=== PATIENT | male | born 1950 | race Caucasian/White ===

== ENCOUNTER 2017-09-11 19:08 | Inpatient (IN) | payer MEDICARE ==
[2017-09-11] MEDS ORDERED: Diltiazem 125 MG/25 ML ONE (19:22)
[2017-09-11 19:39] LABS: #Eosinphils 0.1 thou/uL (0.0-0.7); #Lymphocytes 2.1 thou/uL (1.20-3.40); #Monocytes 0.6 thou/uL (0.11-0.59); #Neutrophils 3.1 thou/uL (1.40-6.50); %Basophils 0.7 % (0.0-1.0); %Eosinophils 0.9 % (0.0-10.0); %Monocytes 10.1 % (0.0-10.0); Red Blood Cell (RBC) Count 4.21 mill/uL (4.70-6.10)
[2017-09-11 19:46] LABS: PTT 37.4 SEC (22.9-36.1); Prothrombin Time 23.2 SEC (12.0-14.7)
--- NOTE | 2017-09-11 20:01 | RAD ---
PORTABLE CHEST: 09/11/17 HISTORY: Chest pain. Streaky atelectasis and/or infiltrate in the left lung base. Slight elevation of the left hemidiaphra gm. Lung meraz otherwise appear clear and well aerated. Heart size is upper normal. IMPRESSION: Evidence of atelectasis and/or infiltrate in the left lung base. POS: [facility]
[2017-09-11 20:04] LABS: Troponin I Less than 0.010 ng/mL (< 0.028)
[2017-09-11 20:18] LABS: ALT (SGPT) 14 U/L (8-55); AST (SGOT) 16 U/L (5-34); Alkaline Phosphatase 113 U/L (40-150); Anion Gap 16 mmol/L (10-20); BUN (Urea Nitrogen) 23 mg/dL (8.4-25.7); Bilirubin, Total 0.6 mg/dL (0.2-1.2); CK (CPK) 49 U/L (30-200); Calc. Creatinine Clearance 0 mL/min (70-130); Calcium 9.4 mg/dL (7.8-10.44); Carbon Dioxide 23 mmol/L (23-31); Chloride 106 mmol/L (98-107); Estimated GFR-MDRD 43; Globulin 2.9 g/dL (2.4-3.5); Lipase 56 U/L (8-78)
[2017-09-11 23:23] VITALS: BMI 34.3
[2017-09-11 23:27] LABS: Troponin I Less than 0.010 ng/mL (< 0.028)
[2017-09-11] MEDS ORDERED: Acetaminophen 325 MG TAB PO PRN (23:33)
[2017-09-11] MEDS ORDERED: Ondansetron HCl/PF 4 MG/2 ML Vial IVP PRN (23:33)
[2017-09-11] MEDS ORDERED: Ondansetron ODT 4 MG TAB SL PRN (23:33)
[2017-09-11] MEDS ORDERED: Diltiazem HCl 125 MG, Admixture Fee 1 EACH in Sodium Chloride 0.9% 100 ML SLOW IVP SCH (23:45)
[2017-09-12] MEDS ORDERED: Sodium Chloride 0.9% 1,000 ML IV SCH (00:50)
[2017-09-12] MEDS ORDERED: Guaifenesin DM 100-10/5 ML UDCUP PO PRN (00:50)
[2017-09-12] MEDS ORDERED: Acetaminophen 325 MG TAB PO PRN (00:50)
[2017-09-12] MEDS ORDERED: Senokot 8.6 MG TAB PO PRN (00:50)
[2017-09-12 01:55] LABS: Troponin I Less than 0.010 ng/mL (< 0.028)
[2017-09-12] MEDS ORDERED: Digoxin 0.5 MG/2 ML AMP SLOW IVP SCH (02:45)
--- NOTE | 2017-09-12 03:15 | HP ---
REASON FOR ADMISSION: Atrial fibrillation with RVR. HISTORY OF PRESENT ILLNESS: The patient gives history of going to his daughter' s house for supper. She was still cooking. He did not feel good. He felt like his heart was racing. He checked his pulse and the rate was more than 100 and he also had skipping of beats that he noticed. No complaints of shortness of breath or fever. The patient knew that he was back in atrial fibrillation like he was before. He has had 2 ablations before for atrial fibrillation/ flutter. He had seen Dr. Duval recently and was placed on Xarelto from last 3 weeks. He in fact took a tablet of Xarelto at 6:00 p.m. last evening. No complaints of chest pain or PND. No complaints of fever. PAST MEDICAL/SURGICAL HISTORY: 1. Prior history of atrial fibrillation/flutter with ablation done x2. He states that usual medications do not work and they had to go in for ablation before. 2. Dyslipidemia. 3. History of skin cancer with surgery for the same. 4. Hypothyroidism. 5. Hypertension. 6. Coronary artery disease with 3 stents placed in 2013 in [place]. 7. Appendectomy. CURRENT MEDICATIONS: The patient is on aspirin 81 mg p.o. daily, Benicar 40 mg p.o. daily, Coreg 6.25 mg p.o. twice daily, K-Dur 20 mEq p.o. daily, Lipitor 20 mg p.o. daily, levothyroxine 50 mcg p.o. daily, Aldactone 25 mg p.o. daily, Xarelto 20 mg daily. ALLERGIES: No known drug allergies. PERSONAL HISTORY: Quit smoking 20 years back, prior to which has smoked a pack and a half for nearly 23 years. Does not abuse alcohol or drugs. REVIEW OF SYSTEMS: The following complete review of systems was negative, unless otherwise mentioned in the HPI or below: Constitutional: Weight loss or gain, ability to conduct usual activities. Skin: Rash, itching. Eyes: Double vision, pain. ENT/Mouth: Nose bleeding, neck stiffness, pain, tenderness. Cardiovascular: Palpitations, dyspnea on exertion, orthopnea. Respiratory: Shortness of breath, wheezing, cough, hemoptysis, fever or night sweats. Gastrointestinal: Poor appetite, abdominal pain, heartburn, nausea, vomiting, constipation, or diarrhea. Genitourinary: Urgency, frequency, dysuria, nocturia. Musculoskeletal: Pain, swelling. Neurologic/Psychiatric: Anxiety, depression. Allergy/Immunologic: Skin rash, bleeding tendency. PHYSICAL EXAMINATION: GENERAL: The patient is a 67-year-old male who is currently not in any acute distress. VITAL SIGNS: Blood pressure 150/106, pulse 144 per minute on arrival, currently around 104 on Cardizem drip 7.5 mg an hour, respiratory rate 18 per minute, temperature 97.4 degrees Fahrenheit, saturating 100% on room air. NECK: Supple, no elevated JVD. HEENT: Eyes, extraocular muscles intact. Pupils reacting to light. Oral cavity, mucous membranes are moist. No exudates or congestion. CARDIOVASCULAR SYSTEM: S1, S2 heard. Irregular rhythm. RESPIRATORY SYSTEM: Air entry 1+ bilateral. No rales or rhonchi. ABDOMEN: Soft, bowel sounds heard. No tenderness, rigidity or guarding. EXTREMITIES: No peripheral edema or calf tenderness. VASCULAR SYSTEM: Peripheral pulses 1+ bilateral. No ischemic ulcerations or gangrene. CENTRAL NERVOUS SYSTEM: No gross focal deficits seen. Patient is alert, awake , oriented well. PSYCHIATRIC: The patient's mood is euthymic. No hallucinations or delusions. LABORATORY AND X-RAY FINDINGS: EKG done shows atrial fibrillation with RVR at 157 beats per minute on arrival. PT/INR 23 and 2.0, PTT 37.4, H&H 13 and 42, platelet count 196. MCV is 99, BUN 23, creatinine 1.6, serum bicarbonate 23, troponin x2 is negative. Liver enzymes are within normal limits. Albumin is 4.1, lipase is 56. Chest x-ray done shows there is questionable infiltrate in the left lung base. It is more to do with atelectasis. CLINICAL IMPRESSION AND PLAN: The patient will be admitted to telemetry for atrial fibrillation with rapid ventricular response. He is currently on Cardizem drip 7.5 mg an hour and we will continue the same along with Coreg. We will give him a dose of 0.5 mg digoxin one dose IV now. We will also continue his atorvastatin, aspirin, Synthroid, Benicar, and Aldactone on alternate days as before. We will keep him n.p.o. if patient were to go into RVR despite being on rate limiting medications. We will consult Dr. 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 We will also obtain thyroid function tests, an echo with 2D Doppler for LV function and to rule out vegetation. Please note the patient has taken Xarelto at 6:00 p.m. on the and his INR is around 2 with PTT of 37 at present. Likely, he will need a washout time prior to proceeding with any intervention. We will continue to closely monitor him on telemetry. Please note I have seen and examined patient on 09/11/2017. MICAH
[2017-09-12] MEDS ORDERED: Digoxin 0.5 MG/2 ML AMP SLOW IVP PRN (03:57)
[2017-09-12 05:31] LABS: #Eosinphils 0.1 thou/uL (0.0-0.7); #Lymphocytes 1.9 thou/uL (1.20-3.40); #Monocytes 0.5 thou/uL (0.11-0.59); #Neutrophils 2.7 thou/uL (1.40-6.50); %Basophils 0.4 % (0.0-1.0); %Lymphocytes 36.8 % (21.0-51.0); %Monocytes 10.3 % (0.0-10.0); Hematocrit 39.2 % (42.0-52.0); Red Blood Cell (RBC) Count 3.93 mill/uL (4.70-6.10); White Blood Cell (WBC) Count 5.1 thou/uL (4.8-10.8)
[2017-09-12] MEDS ORDERED: Levothyroxine Sodium 50 MCG TAB PO SCH ×2 (06:00→10:45)
[2017-09-12 06:03] LABS: Anion Gap 12 mmol/L (10-20); BUN (Urea Nitrogen) 21 mg/dL (8.4-25.7); Calc. Creatinine Clearance 75 mL/min (70-130); Calcium 9.1 mg/dL (7.8-10.44); Carbon Dioxide 21 mmol/L (23-31); Chloride 110 mmol/L (98-107); Estimated GFR-MDRD 50
[2017-09-12 06:09] LABS: Free T3 2.55 pg/mL (1.71-3.71)
[2017-09-12] MEDS ORDERED: Spironolactone 25 MG TAB PO SCH (08:00)
[2017-09-12] MEDS ORDERED: Carvedilol 6.25 MG TAB PO SCH (09:00)
[2017-09-12] MEDS: Famotidine 20 MG TAB PO SCH (09:05)
[2017-09-12] MEDS: Potassium Chloride 20 MEQ TAB PO SCH (09:05)
--- NOTE | 2017-09-12 09:12 | PDOC.PN ---
- Subjective Encounter Start Date: 09/12/17 Encounter Start Time: 09:11 Subjective: feels Ok but still paplpitations when he moves around w Increase IN HR -: no chest pain/sob/dizziness - Objective Resuscitation Status: Resuscitation Status FULL:Full Resuscitation MAR Reviewed: Yes Vital Signs & Weight: Vital Signs (12 hours) Temp Pulse Resp BP BP Pulse Ox 09/12/17 08:16 97.9 F 80 16 112/61 96 09/12/17 04:01 105 H 09/12/17 04:00 97.9 F 87 16 93/57 L 97 09/12/17 00:05 96.9 F L 105 H 16 95 09/11/17 23:34 95 09/11/17 23:15 96.9 F L 105 H 16 110/69 95 Weight Weight 225 lb 14.4 oz I&O: 09/11/17 09/12/17 09/13/17 06:59 06:59 06:59 Intake Total 300 Output Total 150 Balance 150 Result Diagrams: 09/12/17 04:51 09/12/17 04:51 Additional Labs: Laboratory Tests 09/11/17 09/11/17 09/11/17 19:29 19:29 19:29 INR 2.0 Creatinine 1.61 H Troponin I Less than 0.010 Free T4 Free T3 TSH 3rd Generation 09/11/17 09/12/17 09/12/17 22:39 01:13 04:51 INR Creatinine 1.41 H Troponin I Less than 0.010 Less than 0.010 Free T4 Free T3 TSH 3rd Generation 09/12/17 04:51 INR Creatinine Troponin I Free T4 1.11 Free T3 2.55 TSH 3rd Generation 0.2078 L Phys Exam - Physical Examination Constitutional: NAD HEENT: PERRLA, moist MMs, sclera anicteric, oral pharynx no lesions Neck: no nodes, no JVD, supple, full ROM Respiratory: no wheezing, no rales, no rhonchi, clear to auscultation bilateral Cardiovascular: no significant murmur, no rub, gallop, irregular Gastrointestinal: soft, non-tender, no distention, positive bowel sounds Musculoskeletal: no edema, pulses present Neurological: non-focal, normal sensation, moves all 4 limbs Psychiatric: normal affect, A&O x 3 Skin: no rash Dx/Plan (1) Atrial fibrillation with RVR Code(s): I48.91 - UNSPECIFIED ATRIAL FIBRILLATION Status: Acute (2) RIZWAN (acute kidney injury) Code(s): N17.9 - ACUTE KIDNEY FAILURE, UNSPECIFIED Status: Acute (3) Hypothyroid Code(s): E03.9 - HYPOTHYROIDISM, UNSPECIFIED Status: Chronic (4) HLD (hyperlipidemia) Code(s): E78.5 - HYPERLIPIDEMIA, UNSPECIFIED Status: Chronic (5) HTN (hypertension) Code(s): I10 - ESSENTIAL (PRIMARY) HYPERTENSION Status: Chronic (6) CAD (coronary artery disease) Code(s): I25.10 - ATHSCL HEART DISEASE OF [place] CORONARY ARTERY W/O ANG PCTRS Status: Chronic (7) Chronic anticoagulation Code(s): Z79.01 - RENTAL COORDINATOR (CURRENT) USE OF ANTICOAGULANTS Status: Chronic (8) H/O malignant neoplasm of skin Code(s): Z85.828 - PERSONAL HISTORY OF OTHER MALIGNANT NEOPLASM OF SKIN Status : Chronic - Plan out of bed/ambulate, DVT proph w/SCDs Discussed w Cardiology-started on PO cardiazem.DC Cardiazem drip. -: Pt already on xarelto as an OP.cont same. -: If HR controlled ,may DC home later today. -: If still RVR, will keep in house for possible CV tomorrow. -: increase ambulation.Restart diet. * .Lower dose of levothyroxine as TSH low ,specially in light of RVR w A-fib. * monitor Review of Systems - Review of Systems Constitutional: negative: Fever, Chills, Sweats, Weakness, Malaise, Other Eyes: negative: Pain, Vision Change, Conjunctivae Inflammation, Eyelid Inflammation, Redness, Other Respiratory: negative: Cough, Dry, Shortness of Breath, Hemoptysis, SOB with Excertion, Pleuritic Pain, Sputum, Wheezing Cardiovascular: Palpitations. negative: Chest Pain, Orthopnea, Paroxysmal Noc. Dyspnea, Edema, Light Headedness, Other Gastrointestinal: negative: Nausea, Vomiting, Abdominal Pain, Diarrhea, Constipation, Melena, Hematochezia, Other Genitourinary: negative: Dysuria, Frequency, Incontinence, Hematuria, Retention , Other Musculoskeletal: negative: Neck Pain, Shoulder Pain, Arm Pain, Back Pain, Hand Pain, Leg Pain, Foot Pain, Other Neurological: negative: Weakness, Numbness, Incoordination, Change in Speech, Confusion, Seizures, Other - Medications/Allergies Allergies/Adverse Reactions: Allergies Allergy/AdvReac Type Severity Reaction Status Date / Time No Known Allergies Allergy Verified 09/11/17 23:32 Medications: Current Medications Acetaminophen (Tylenol) 650 mg PO Q4H PRN PRN Reason: Headache/Fever or Pain Aspirin (Ecotrin) 81 mg PO HS DEANNA Atorvastatin Calcium (Lipitor) 20 mg PO HS DEANNA Digoxin (Lanoxin) 0.5 mg SLOW IVP ONE PRN PRN Reason: HR > 130 Stop: 09/13/17 03:58 Diltiazem HCl (Cardizem Cd) 180 mg PO DAILY [facility] Last Admin: 09/12/17 09:04 Dose: 180 mg Famotidine (Pepcid) 20 mg PO DAILY [facility] Last Admin: 09/12/17 09:05 Dose: 20 mg Guaifenesin/Dextromethorphan (Robitussin Dm) 15 ml PO Q4H PRN PRN Reason: Cough Sodium Chloride (Normal Saline 0.9%) 1,000 mls @ 50 mls/hr IV .Q20H [facility] Last Admin: 09/12/17 01:38 Dose: 1,000 mls Levothyroxine Sodium (Synthroid) 50 mcg PO 0600 [facility] Last Admin: 09/12/17 05:48 Dose: 50 mcg Olmesartan (Benicar) 40 mg PO DAILY [facility] Last Admin: 09/12/17 09:04 Dose: 40 mg Potassium Chloride (K-Dur) 20 meq PO QAM-WM [facility] Last Admin: 09/12/17 09:05 Dose: 20 meq Senna (Senokot) 2 tab PO HSPRN PRN PRN Reason: Constipation Spironolactone (Aldactone) 25 mg PO Q2D [facility] Last Admin: 09/12/17 09:05 Dose: 25 mg
--- NOTE | 2017-09-12 12:04 | CON ---
DATE OF CONSULTATION: 09/12/2017 REASON FOR CONSULTATION: Atrial fibrillation. REFERRING PROVIDER: Dr. Posey. HISTORY OF PRESENT ILLNESS: Mr. You is a very pleasant 67-year-old gentleman I recently saw a nd evaluated in the office. He has a history of paroxysmal atrial fibrillation. He has been cardiov erted x1 in the past. He has been on chronic anticoagulation therapy. He recently presented with acute onset of tachycardia. This occurred yesterday. He presented to the emergency room with atrial fibrillation with RVR. He was placed on IV Cardizem and is now on p.o. C ardizem with appropriate rate control. He is off IV Cardizem. PAST MEDICAL HISTORY: CAD, status post stent placement; hypertension; paroxysmal atrial fibrillation . ALLERGIES: None. SOCIAL HISTORY: No current tobacco or alcohol use. HOME MEDICATIONS: Benicar, Coreg, potassium, Lipitor, tyrosine, Aldactone, aspirin, and he is now on Xarelto. REVIEW OF SYSTEMS: A 10-point review of systems is reviewed and as above, otherwise negative. PHYSICAL EXAMINATION: GENERAL: Patient is a pleasant male who is in no acute distress. The patient appears his stated age . VITAL SIGNS: Blood pressure 112/61, pulse 80, temperature 97.9. NEUROLOGIC: The patient is alert and oriented times 3 with no focal neurologic deficits. HEENT: Sclerae without icterus. Mouth has moist mucous membranes with normal pallor. NECK: No JVD. Carotid upstroke brisk. No bruits bilaterally. LUNGS: Clear to auscultation with unlabored respirations. BACK: No scoliosis or kyphosis. CARDIAC: Irregularly irregular. No significant rubs, murmurs, thrills, or gallops noted throughout the precordium. PMI is not displaced. There is no parasternal heave. ABDOMEN: Soft, nontender, nondistended. No peritoneal signs present. No hepatosplenomegaly. No ab normal striae. EXTREMITIES: A 2+ femoral and 2+ dorsalis pedis pulses. No cyanosis, clubbing, or edema. SKIN: No gross abnormalities. PERTINENT LABORATORY DATA: Hemoglobin 13. Creatinine 1.41. TSH 0.2078. Noninvasive stress study d ated 08/27/2017, no significant ischemia with LVEF 62%. Echo Doppler dated 08/16/2017, LVEF 55%-60% with mild MR and mild TR. IMPRESSION: 1. Atrial fibrillation. 2. Hypothyroidism. RECOMMENDATIONS: At this point, we would continue rate control. We will change his Cardizem to a be ta pam therapy. I discussed cardioversion versus rate control with Mr. You. At this poin t, we would recommend rate control. He has not missed a dose of Xarelto. We will consider adding Mu ltaq given a history of CAD, status post stent placement. Hypothyroidism to be addressed by hospital ist.
[2017-09-12] MEDS: Dronedarone HCl 400 MG TAB PO SCH (16:28)
[2017-09-12] MEDS ORDERED: Aspirin 81 mg Enteric Coated Tablet PO SCH (21:00)
[2017-09-12] MEDS ORDERED: Atorvastatin Calcium 20 MG TAB PO SCH (21:00)
[2017-09-13] MEDS ORDERED: Levothyroxine Sodium 50 MCG TAB PO SCH (06:00)
[2017-09-13] MEDS: Potassium Chloride 20 MEQ TAB PO SCH (08:41)
[2017-09-13] MEDS: Dronedarone HCl 400 MG TAB PO SCH (08:41)
[2017-09-13] MEDS: Famotidine 20 MG TAB PO SCH (08:42)
--- NOTE | 2017-09-13 08:51 | PDOC.PN ---
- Subjective Encounter Start Date: 09/13/17 Encounter Start Time: 08:51 Subjective: feels well. no SOB/TOMAS.some palpitation when he walks - Objective MAR Reviewed: Yes Vital Signs & Weight: Vital Signs (12 hours) Temp Pulse Resp BP BP Pulse Ox 09/13/17 08:38 88 140/85 09/13/17 07:20 98.1 F 97 16 98/64 94 L 09/13/17 03:55 93 18 107/67 97 09/12/17 21:10 97.7 F 96 18 122/69 96 Weight Weight 221 lb 8 oz I&O: 09/12/17 09/13/17 09/14/17 06:59 06:59 06:59 Intake Total 300 1881 Output Total 150 1025 Balance 150 856 Result Diagrams: 09/12/17 04:51 09/12/17 04:51 Phys Exam - Physical Examination Constitutional: NAD HEENT: PERRLA, moist MMs, sclera anicteric, oral pharynx no lesions Neck: no nodes, no JVD, supple, full ROM Respiratory: no wheezing, no rales, no rhonchi, clear to auscultation bilateral Cardiovascular: RRR, no significant murmur, no rub, gallop Gastrointestinal: soft, non-tender, no distention, positive bowel sounds Musculoskeletal: no edema, pulses present Neurological: non-focal, normal sensation, moves all 4 limbs Psychiatric: normal affect, A&O x 3 Skin: no rash Dx/Plan (1) Atrial fibrillation with RVR Code(s): I48.91 - UNSPECIFIED ATRIAL FIBRILLATION Status: Acute (2) RIZWAN (acute kidney injury) Code(s): N17.9 - ACUTE KIDNEY FAILURE, UNSPECIFIED Status: Acute (3) Hypothyroid Code(s): E03.9 - HYPOTHYROIDISM, UNSPECIFIED Status: Chronic (4) HLD (hyperlipidemia) Code(s): E78.5 - HYPERLIPIDEMIA, UNSPECIFIED Status: Chronic (5) HTN (hypertension) Code(s): I10 - ESSENTIAL (PRIMARY) HYPERTENSION Status: Chronic (6) CAD (coronary artery disease) Code(s): I25.10 - ATHSCL HEART DISEASE OF [place] CORONARY ARTERY W/O ANG PCTRS Status: Chronic (7) Chronic anticoagulation Code(s): Z79.01 - SALES LEAD (CURRENT) USE OF ANTICOAGULANTS Status: Chronic (8) H/O malignant neoplasm of skin Code(s): Z85.828 - PERSONAL HISTORY OF OTHER MALIGNANT NEOPLASM OF SKIN Status : Chronic - Plan plan discussed w/ family, DVT proph w/SCDs HR better controlled w BB. cont xarelto.started on multaq. -: Discussed w cardiology.OK to Dc home today w OP f/u. -: hemodynamically stable.will DC home. -: see DC summary for details * . Review of Systems - Review of Systems Constitutional: negative: Fever, Chills, Sweats, Weakness, Malaise, Other Respiratory: negative: Cough, Dry, Shortness of Breath, Hemoptysis, SOB with Excertion, Pleuritic Pain, Sputum, Wheezing Cardiovascular: negative: Chest Pain, Palpitations, Orthopnea, Paroxysmal Noc. Dyspnea, Edema, Light Headedness, Other Gastrointestinal: negative: Nausea, Vomiting, Abdominal Pain, Diarrhea, Constipation, Melena, Hematochezia, Other Genitourinary: negative: Dysuria, Frequency, Incontinence, Hematuria, Retention , Other Musculoskeletal: negative: Neck Pain, Shoulder Pain, Arm Pain, Back Pain, Hand Pain, Leg Pain, Foot Pain, Other Neurological: negative: Weakness, Numbness, Incoordination, Change in Speech, Confusion, Seizures, Other - Medications/Allergies Allergies/Adverse Reactions: Allergies Allergy/AdvReac Type Severity Reaction Status Date / Time No Known Allergies Allergy Verified 09/11/17 23:32 Medications: Current Medications Acetaminophen (Tylenol) 650 mg PO Q4H PRN PRN Reason: Headache/Fever or Pain Aspirin (Ecotrin) 81 mg PO HS [facility] Last Admin: 09/12/17 21:03 Dose: 81 mg Atorvastatin Calcium (Lipitor) 20 mg PO HS [facility] Last Admin: 09/12/17 21:03 Dose: 20 mg Dronedarone (Multaq) 400 mg PO BID-[facility] Last Admin: 09/13/17 08:41 Dose: 400 mg Famotidine (Pepcid) 20 mg PO DAILY [facility] Last Admin: 09/13/17 08:42 Dose: 20 mg Guaifenesin/Dextromethorphan (Robitussin Dm) 15 ml PO Q4H PRN PRN Reason: Cough Levothyroxine Sodium (Synthroid) 25 mcg PO 0600 [facility] Last Admin: 09/13/17 06:20 Dose: 25 mcg Metoprolol Succinate (Toprol Xl) 50 mg PO QPM [facility] Last Admin: 09/12/17 21:03 Dose: 50 mg Metoprolol Succinate (Toprol Xl) 25 mg PO DAILY [facility] Last Admin: 09/13/17 08:42 Dose: 25 mg Olmesartan (Benicar) 40 mg PO DAILY [facility] Last Admin: 09/13/17 08:41 Dose: 40 mg Potassium Chloride (K-Dur) 20 meq PO QAM-WM [facility] Last Admin: 09/13/17 08:41 Dose: 20 meq Senna (Senokot) 2 tab PO HSPRN PRN PRN Reason: Constipation Spironolactone (Aldactone) 25 mg PO Q2D [facility] Last Admin: 09/12/17 09:05 Dose: 25 mg
[2017-09-13 11:52] VITALS: BP 126/98; TEMP 98.2
--- NOTE | 2017-09-13 12:16 | DIS ---
DATE OF ADMISSION: 09/13/2017 DATE OF DISCHARGE: 09/13/2017 CONDITION AT THE TIME OF DISCHARGE: Stable and improved. DISCHARGE DIAGNOSES: 1. Atrial fibrillation with rapid ventricular response. 2. Acute kidney insufficiency. 3. Hypothyroidism. 4. Hyperlipidemia. 5. Hypertension. 6. Coronary artery disease. 7. Chronic anticoagulation. 8. History of skin cancer. DISCHARGE MEDICATIONS: Are as follows; Aldactone 20 mg daily, Xarelto 20 mg daily, olmesartan 40 mg daily, Lipitor 20 mg daily, aspirin 81 mg daily, Toprol-XL 25 mg in the morning and 50 mg at bedtime, Synthroid dose has been decreased to 25 mcg daily from 50 mcg daily, Multaq 400 mg p.o. b.i.d. CONSULTATION INHOUSE: Include Cardiology, Dr. Duval. PROCEDURES: Include chest x-ray upon presentation did not show any pulmonary edema, effusion or infi ltrate. PRIMARY CARE PHYSICIAN: Keven Liu M.D. HISTORY OF PRESENTING ILLNESS: Mr. You is a 67-year-old male with past medical hist ory of atrial fibrillation, dyslipidemia, hypothyroidism, hypertension, and coronary artery disease, who presented to the emergency room for complaints of palpitations and fast heart rate. He presented to the ER and he was found to be in atrial fibrillation with RVR and was admitted to telemetry unit for further intervention. He was started on Cardizem drip and Cardiology was consulted. He was cont inued on his anticoagulation with Xarelto, which he takes at home. Please see admission history and physical for further details. HOSPITAL COURSE: The patient was eventually taken off of the Cardizem drip and changed to oral rate controlling medications. Initially, he was started on Cardizem, but was changed later to Toprol-XL t wice a day by Cardiology. He was also started on Multaq and continued on Xarelto. Eventually, he calderon d better heart rate control. Consideration was given to possible cardioversion, but because of impro braulio heart rate control this is deferred for near future. Dr. Duval has seen the patient and [place] red him for discharge this morning. The plan is for the patient to follow up with Dr. Duval in t clinic in a week or so, so he can assess the patient and do cardioversion as an outpatient if need ed. At this time, he will continue the new medications, namely Toprol as well as Multaq. He is take n off of his potassium chloride supplements as he is on Aldactone, which is a potassium-sparing diure tic as well as COCO inhibitors which can also cause hyperkalemia. His Synthroid dose was decreased in light of rapid ventricular rate. His TSH was low at 0.20 with no rmal free T3 and T4. He will follow up with his primary care physician with repeat labs in 6 weeks. His renal insufficiency has improved with improved heart rate. He will once again follow up with PCP for repeat blood work in about a week or so. He was seen and examined prior to discharge. Please see hospitalist progress note from today's date for further detail including [id number] interaction. Total time spent 32 minutes. Discharge plan was discussed with the patient and his daughter as well as Dr. Duval.
--- NOTE | 2017-09-18 11:57 | PQF ---
LESLY ROJO VINAYA KUMAR MD [id number] [facility] [id number] CLINICAL DOCUMENTATION CLARIFICATION FORM: POST DISCHARGE Addendum to original discharge summary date: ____ Late entry note date: __ DATE: 09/18/17 ATTN: Cheyenne Beasley MD Please exercise your independent, professional judgment in responding to the clarification form. Clinical indicators are provided on the bottom of this form for your review Discharge Summary Discharge Diagnoses #2. Acute Kidney Insufficiency PN pg. 3 Dx/Plan #2 Acute Kidney Failure PN 09/13/17 pg. 2 Dx/Plan #2 Acute Kidney Failure Emergency Record pg. 3 Diagnosis Additional: RIZWAN Please check appropriate box(s): Conflicting documentation was noted in the Medical Record, please clarify if patient is being treated/monitored for: [ ] Acute Kidney Insufficiency (diagnosis #1) [ ] Acute Kidney Failure (diagnosis #2) [ x ] Other diagnosis no he does not have rizwan/arf [ ] Unable to determine In addition, please specify: Present on Admission (POA): [ ] Yes [ ] No [ ] Unable to determine For continuity of documentation, please document condition throughout progress notes and discharge summary. Thank You. CLINICAL INDICATORS - SIGNS / SYMPTOMS/ LABS Insert documentation from providers that state diagnosis RISK FACTORS Insert risk factors supporting diagnosis TREATMENT Insert treatment supporting diagnosis (This form is maintained as a part of the permanent medical record) [employer] All Rights Reserved [email or web address] [phone] MICAH
--- NOTE | 2017-10-12 16:47 | EKG ---
Test Reason : Blood Pressure : / mmHG Vent. Rate : 157 BPM Atrial Rate : 159 BPM P-R Int : 000 ms QRS Dur : 084 ms QT Int : 312 ms P-R-T Axes : 000 017 199 degrees QTc Int : 504 ms Atrial fibrillation with rapid ventricular response Abnormal ECG Confirmed by ROD TRUJILLO MD ([id number]), website/blog editor REGINE CALVIN ([id number]) on 10/12/2017 4:47:00 PM Referred By: Confirmed By:ROD TRUJILLO MD
== END 2017-09-13 12:14 | disposition home or self-care (01) | DRG 310 ==
LOC: ERS 19:08 → 2NO 23:12 → OBSVTOIN 09-12 00:50
PROVIDERS: ADMIT Internal Medicine; ATTEND Internal Medicine
DX: I48.91 Unspecified atrial fibrillation (principal); I10 Essential (primary) hypertension; E03.9 Hypothyroidism, unspecified; I25.10 Atherosclerotic heart disease of native coronary artery without angina pectoris; E78.5 Hyperlipidemia, unspecified; F32.9 Major depressive disorder, single episode, unspecified; F41.9 Anxiety disorder, unspecified; Z79.01 Long term (current) use of anticoagulants; Z85.828 Personal history of other malignant neoplasm of skin; Z95.5 Presence of coronary angioplasty implant and graft; Z87.891 Personal history of nicotine dependence
CPT/HCPCS: 36415; 71010; 80048; 80053; 82553; 83690; 84439; 84443; 84481; 84484; 85025; 85610; 85730; 93005; 96365; 96366; 96376; J1160

== ENCOUNTER 2017-10-24 12:34 | Outpatient (CLI) | payer MEDICARE ==
[2017-10-24 13:28] LABS: Hemoglobin 13.6 g/dL (14.0-18.0); Mean Corpuscular HGB CONC 33.5 g/dL (32.0-36.0); Mean Corpuscular Hemoglobin 33.7 pg (27.0-31.0); Mean Platelet Volume 7.6 fL (7.4-10.4); Platelet Count 209 thou/uL (130-400); RBC Distribution Width 11.8 % (11.5-14.5); Red Blood Cell (RBC) Count 4.04 mill/uL (4.70-6.10); White Blood Cell (WBC) Count 5.3 thou/uL (4.8-10.8)
[2017-10-24 13:54] LABS: Anion Gap 11 mmol/L (10-20); BUN (Urea Nitrogen) 19 mg/dL (8.4-25.7); Calc. Creatinine Clearance 0 mL/min (70-130); Calcium 9.7 mg/dL (7.8-10.44); Carbon Dioxide 25 mmol/L (23-31); Chloride 108 mmol/L (98-107); Estimated GFR-MDRD 46; Glucose 89 mg/dL (80-115); Potassium 4.2 mmol/L (3.5-5.1); Sodium 140 mmol/L (136-145)
[2017-10-24 13:59] LABS: INR-International Normal Ratio 2.2; PTT 38.9 SEC (22.9-36.1); Prothrombin Time 24.9 SEC (12.0-14.7)
--- NOTE | 2017-10-31 19:37 | EKG ---
Test Reason : Blood Pressure : / mmHG Vent. Rate : 080 BPM Atrial Rate : 340 BPM P-R Int : 000 ms QRS Dur : 092 ms QT Int : 394 ms P-R-T Axes : 000 020 -14 degrees QTc Int : 454 ms Atrial fibrillation Nonspecific T wave abnormality , probably digitalis effect Abnormal ECG Confirmed by JULIETA MICHELLE ([id number]) on 10/31/2017 7:36:53 PM Referred By: AVIVA Confirmed By:JULIETA MICHELLE
== END 2017-10-24 12:35 | disposition home or self-care (01) ==
LOC: LABBT 12:34
PROVIDERS: ATTEND Internal Medicine Cardiovascular Disease
DX: Z01.818 Encounter for other preprocedural examination (principal); I48.91 Unspecified atrial fibrillation
CPT/HCPCS: 80048; 85027; 85610; 85730; 93005; 93010

== ENCOUNTER → 2017-10-25 | Day surgery (SDC) | payer MEDICARE ==
[2017-10-24 12:43] VITALS: BMI 34.7
[~2017-10-25] MED LIST: Glycopyrrolate 0.2 MG/ML 5 ML SYRINGE ONE; PROPOFOL 20 ML ONE; PROPOFOL 200 MG/20 ML VIAL ONE
--- NOTE | 2017-10-25 14:07 | OP ---
DATE OF PROCEDURE: 10/25/2017 CARDIOVERSION REPORT REASON FOR PROCEDURE: Mr. You is a 67-year-old male with history of now persisting atrial fib rillation/coarse flutters. He is here for a planned cardioversion, hence Multaq has not been suffici ent for successfully cardiovert him. He has been adequately anticoagulated with Xarelto over 3 weeks without interruption. PROCEDURE: The patient received propofol per Anesthesia specialist. After adequate level of sedatio n achieved, a synchronized 150 joule shock promptly converted the patient back to sinus rhythm. Zuri ent tolerated the procedure well. No complications noted. PLAN: Continue Multaq and Xarelto for now. Patient will be scheduled for an outpatient pulmonary ve nous isolation procedure in the near future.
== END ==
LOC: CCL 10:40
PROVIDERS: ATTEND Internal Medicine Cardiovascular Disease
DX: I48.1 Persistent atrial fibrillation (principal); I48.92 Unspecified atrial flutter; Z85.828 Personal history of other malignant neoplasm of skin; Z79.01 Long term (current) use of anticoagulants; Z95.5 Presence of coronary angioplasty implant and graft; Z90.49 Acquired absence of other specified parts of digestive tract; Z98.890 Other specified postprocedural states
CPT/HCPCS: 92960; J2704

== ENCOUNTER 2017-11-01 05:10 | Emergency (ER) | payer MEDICARE ==
[2017-11-01 05:56] LABS: #Eosinphils 0.1 thou/uL (0.0-0.7); #Lymphocytes 1.1 thou/uL (1.20-3.40); #Monocytes 0.6 thou/uL (0.11-0.59); #Neutrophils 5.4 thou/uL (1.40-6.50); %Basophils 0.2 % (0.0-1.0); %Eosinophils 1.2 % (0.0-10.0); %Lymphocytes 15.3 % (21.0-51.0); %Monocytes 8.3 % (0.0-10.0); Hemoglobin 13.1 g/dL (14.0-18.0); Mean Corpuscular HGB CONC 32.6 g/dL (32.0-36.0); Mean Corpuscular Hemoglobin 32.5 pg (27.0-31.0); Mean Corpuscular Volume 99.9 fl (80.0-94.0); Platelet Count 193 thou/uL (130-400); RBC Distribution Width 11.8 % (11.5-14.5); Red Blood Cell (RBC) Count 4.02 mill/uL (4.70-6.10); White Blood Cell (WBC) Count 7.1 thou/uL (4.8-10.8)
[2017-11-01 06:07] LABS: INR-International Normal Ratio 2.4; PTT 63.3 SEC (22.9-36.1); Prothrombin Time 27.4 SEC (12.0-14.7)
[2017-11-01 07:05] LABS: Clarity Cloudy (Clear)
[2017-11-01 07:06] LABS: Bilirubin Negative (Negative); Blood, Urine Large (Negative); Glucose, Urine (Dipstick) Negative (Negative); Leukocyte Negative (Negative); Nitrite Positive (Negative); Protein, Urine (Dipstick) 100 mg/dL (Neg-Trace); RBC/HPF GREATER THAN 50-TNTC HPF (0-3); Specific Gravity, Urine 1.028 (1.002-1.036); Urobilinogen 0.2 mg/dL (0.2-1.0); WBC/HPF 0-3 HPF (0-3); pH, Urine 6.5 (5.0-9.0)
[2017-11-01 07:07] LABS: Bacteria/HPF 3+ HPF (None Seen); Hyaline Casts/LPF NONE SEEN LPF (0-3 Hyaline); Squamous Epithelial None Seen HPF (0-3)
== END 2017-11-01 07:14 | disposition home or self-care (01) ==
LOC: ERS 05:10
DX: N39.0 Urinary tract infection, site not specified (principal); R31.9 Hematuria, unspecified; I48.91 Unspecified atrial fibrillation; E03.9 Hypothyroidism, unspecified; E78.5 Hyperlipidemia, unspecified; I10 Essential (primary) hypertension; Z79.82 Long term (current) use of aspirin; Z79.899 Other long term (current) drug therapy
CPT/HCPCS: 36415; 81001; 85025; 85610; 85730; 99283

== ENCOUNTER 2017-12-03 09:26 | Outpatient (CLI) | payer MEDICARE ==
--- NOTE | 2017-12-03 12:42 | CT ---
CT ANGIOGRAM OF THE CHEST: HISTORY: Coronary mapping. Heart ablation. Atrial fibrillation. COMPARISON: Radiograph 09/11/17. FINDINGS: The left coronary artery emanates from the left coronary cusp. The right coronary artery emanates fr om the right coronary cusp. There is a stent in the right coronary artery as well as extensive ather osclerotic calcifications of the left anterior descending and circumflex coronary arteries. There ap pears to be a stent within the circumflex coronary artery. Left atrium is dilated. No thrombus is noted within the left atrial appendage. There are small pretracheal lymph nodes retaining normal fatty hilum. Incomplete evaluation of a nod ule in the upper abdomen which may be renal in nature, although the kidney is not visualized. There is an 11 mm nodule in the right upper lobe which has peripheral ground-glass 6 mm solid compone nt. There appears to be some mild centrilobular and emphysematous changes of the upper lobes. Also, mild paraseptal emphysema. There is mild bibasilar atelectasis. IMPRESSION: 1. Dilatation of the left atrium without left atrial appendage thrombus. 2. Normal anatomy of the coronary arteries with moderate atherosclerotic plaque as well as indwellin g coronary stents. 3. Right upper lobe 11 mm nodule with peripheral ground-glass as well as a 6 mm solid component. Th is may be infectious or inflammatory or malignant in nature. A followup PET/ CT is recommended. 4. 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 5. Mild cardiomegaly. CODE T CODE LN POS: XIAO
[2017-12-03] MEDS ORDERED: Iopamidol 370 76% 100 ML VIAL ONE (13:25)
== END 2017-12-03 09:27 | disposition home or self-care (01) ==
LOC: CT 09:26
PROVIDERS: ATTEND Internal Medicine Cardiovascular Disease
DX: I48.91 Unspecified atrial fibrillation (principal); R06.02 Shortness of breath; I51.7 Cardiomegaly; I25.10 Atherosclerotic heart disease of native coronary artery without angina pectoris; R91.8 Other nonspecific abnormal finding of lung field
CPT/HCPCS: 71275

== ENCOUNTER 2017-12-09 05:51 | Observation (INO) | payer MEDICARE ==
[2017-12-06 09:12] VITALS: BMI 34.7
[2017-12-09] MEDS ORDERED: Heparin 10,000 UNITS/1 ML VIAL ONE ×3 (06:43→11:07)
[2017-12-09] MEDS ORDERED: Fentanyl 100 MCG/2 ML VIAL ONE ×5 (06:51→13:35)
[2017-12-09] MEDS ORDERED: Midazolam HCl 2 mg/2 ml Vial ONE (06:51)
[2017-12-09 06:59] LABS: INR-International Normal Ratio 1.5; PTT 34.2 SEC (22.9-36.1); Prothrombin Time 18.2 SEC (12.0-14.7)
[2017-12-09 07:00] LABS: #Eosinphils 0.1 thou/uL (0.0-0.7); #Lymphocytes 1.4 thou/uL (1.20-3.40); #Monocytes 0.6 thou/uL (0.11-0.59); %Basophils 0.6 % (0.0-1.0); %Eosinophils 1.7 % (0.0-10.0); %Lymphocytes 23.2 % (21.0-51.0); %Monocytes 9.7 % (0.0-10.0); %Neutrophils 64.8 % (42.0-75.0); Hemoglobin 13.7 g/dL (14.0-18.0); Mean Corpuscular HGB CONC 33.1 g/dL (32.0-36.0); Mean Corpuscular Hemoglobin 32.2 pg (27.0-31.0); Mean Corpuscular Volume 97.3 fl (80.0-94.0); Mean Platelet Volume 8.3 fL (7.4-10.4); Platelet Count 195 thou/uL (130-400); RBC Distribution Width 12.3 % (11.5-14.5); Red Blood Cell (RBC) Count 4.24 mill/uL (4.70-6.10); White Blood Cell (WBC) Count 6.1 thou/uL (4.8-10.8)
[2017-12-09 07:21] LABS: Anion Gap 13 mmol/L (10-20); BUN (Urea Nitrogen) 20 mg/dL (8.4-25.7); Calc. Creatinine Clearance 76 mL/min (70-130); Calcium 9.5 mg/dL (7.8-10.44); Carbon Dioxide 24 mmol/L (23-31); Chloride 106 mmol/L (98-107); Estimated GFR-MDRD 51; Glucose 101 mg/dL (80-115); Potassium 3.9 mmol/L (3.5-5.1); Sodium 139 mmol/L (136-145)
[2017-12-09] MEDS ORDERED: Heparin 25,000 units/D5W 500 ML ONE (08:34)
[2017-12-09] MEDS ORDERED: Isoproterenol 0.2 MG/1 ML AMP ONE (09:56)
[2017-12-09] MEDS ORDERED: Protamine Sulfate 50 MG/5 ML VIAL ONE (11:49)
[2017-12-09] MEDS ORDERED: Furosemide 40 MG TAB PO PRN (12:48)
[2017-12-09] MEDS ORDERED: Potassium Chloride 10 MEQ TAB PO PRN (13:04)
[2017-12-09] MEDS ORDERED: Bisacodyl 5 MG TAB PO PRN (13:12)
[2017-12-09] MEDS ORDERED: traMADol HCl 50 MG TAB PO PRN (13:12)
[2017-12-09] MEDS ORDERED: Acetaminophen 325 MG TAB PO PRN (13:12)
[2017-12-09] MEDS ORDERED: Ondansetron HCl/PF 4 MG/2 ML Vial IVP PRN (13:12)
[2017-12-09] MEDS ORDERED: Temazepam 15 MG CAP PO PRN (13:12)
[2017-12-09] MEDS ORDERED: Nitroglycerin 0.4 MG TAB (25 Tab Bottle) SL PRN (13:12)
[2017-12-09] MEDS ORDERED: diphenhydrAMINE 25 MG CAP PO PRN (13:12)
[2017-12-09] MEDS ORDERED: Bisacodyl 10 MG SUPP PR PRN (13:12)
[2017-12-09] MEDS ORDERED: Silver Sulfadiazine 1% Cream 50 GM JAR TOP PRN (13:12)
[2017-12-09] MEDS ORDERED: Mag-Al 1200 mg/1200 mg/30 ML UDCUP PO PRN (13:12)
[2017-12-09] MEDS ORDERED: Heparin 30,000 units/30 ml VIAL ONE (14:57)
[2017-12-09] MEDS ORDERED: Succinylcholine Chloride 20 MG/ML 10 ml SYRINGE FS ONE (14:57)
[2017-12-09] MEDS ORDERED: PROPOFOL 200 MG/20 ML VIAL ONE (14:57)
[2017-12-09] MEDS ORDERED: Glycopyrrolate 0.2 MG/ML 5 ML SYRINGE ONE (14:57)
[2017-12-09] MEDS ORDERED: PHENYLEPHRINE-NS 100 MCG/ML 10 ML SYRINGE ONE (14:57)
--- NOTE | 2017-12-09 15:27 | EKG ---
Test Reason : PREOP Blood Pressure : / mmHG Vent. Rate : 125 BPM Atrial Rate : 234 BPM P-R Int : 000 ms QRS Dur : 086 ms QT Int : 332 ms P-R-T Axes : 000 022 -03 degrees QTc Int : 479 ms Atrial fibrillation with rapid ventricular response Nonspecific T wave abnormality Abnormal ECG Confirmed by KIRTI JAY ([id number]) on 12/09/2017 3:26:59 PM Referred By: AVIVA Confirmed By:KIRTI JAY
--- NOTE | 2017-12-09 15:34 | EKG ---
Test Reason : POST A FIB ABLATION Blood Pressure : / mmHG Vent. Rate : 072 BPM Atrial Rate : 072 BPM P-R Int : 150 ms QRS Dur : 088 ms QT Int : 434 ms P-R-T Axes : 076 034 055 degrees QTc Int : 475 ms Normal sinus rhythm Nonspecific T wave abnormality Borderline ECG Confirmed by KIRTI JAY ([id number]) on 12/09/2017 3:34:28 PM Referred By: AVIVA Confirmed By:KIRTI JAY
--- NOTE | 2017-12-09 16:56 | CCLSPC ---
DATE OF PROCEDURE: 12/09/2017 ELECTROPHYSIOLOGY STUDY/ATRIAL FIBRILLATION ABLATION REPORT REFERRING PHYSICIAN: Dr. Duval REASON FOR PROCEDURE: Mr. You is a 67-year-old man with the history of coronary artery disease, also recurrent atrial fibrillation initially suppressed with amiodarone, eventually switched to Multaq, which was dose suboptimal to suppress his arrhythmias. He is here for radiofrequency ablation and pulmonary venous isolation. PROCEDURE: The patient did receive deep sedation by Anesthesia specialist. The right femoral vein was prepped and draped and anesthetized using subcutaneous lidocaine in the right and left femoral venous area. Under ultrasound guidance, a Preface sheath was used on the right side as well as 11 Yemeni short sheath through which an ICE catheter was advanced to the right atrium for monitoring of the transseptal procedure as well as monitoring effusions. Through the Preface sheath, a duodeca catheter was advanced to the CS and the right atrial locations. Following that, through a right femoral venous access, an FL1 standard transseptal sheath was advanced to the SVC and with a Laurie needle, transseptal puncture was performed under ICE monitoring. Following that the FL1 sheath was exchanged to a wire and the transseptal procedure was repeated with a FL1 sheath again. Through the previously placed wire, an Agilis sheath was advanced to the left atrium, and right after transseptal IV heparin bolus and drip was administered to adjust the ACT to over 350. Following that a 20 pole deflectable Lasso catheter advanced to the Agilis sheath and a FJ bidirectional catheter was advanced into the left atrium. With these catheters a left atrial 3D map was obtained, then pulmonary venous isolation procedure was performed, isolating all 4 veins Roof line and posterio- inferior line was drawn to isolate the posterior wall. The procedure temperature was monitored throughout to avoid excessive heating. The posterior was isolated, additional inferobasal and inferoseptal infection areas were ablated. Isuprel was administered to ascertain adequate isolation of pulmonary veins and the reconnections were re-ablated. Atrial tachycardia was noted with cycle length 463, which were tracked to the left inferior base and the right inferior base on the right pulmonary vein and it was also ablated. After this the atrial tachycardia and was not re-inducible. On isuprel , also transient rapid atrial flutter with 1:1 AV conduction was induced, The right-sided CR pole pacing resulted in with long post-pacing intervals. The earliest activation was at the proximal CS. We could not pace map all locations , hence the termination of the tachycardia with pacing. Following that the LV pacing was performed demonstrating central VA conduction, no accessory pathways. Additional CS pacing did not reinduce any arrhythmias. CONCLUSION: The catheters were then withdrawn to the right atrium and then removed from the body. ACTs were checked and protamine was administered to reverse IV heparin. The cardiac silhouette did not change with the ablation. The ICE monitoring did not reveal a change in the baseline pericardial effusion which was small. The patient remained stable throughout the case and tolerated the sedation well. MEASUREMENTS: Baseline QRS duration 101, AH 45, HV 37. CONCLUSION: 1. Successful pulmonary vein isolation. 2. Successful posterior wall isolation. 3. Additional inferobasal, inferoseptal ablation of fractionated potentials. 4. Additional ablation of an atrial tachycardia at the right inferoseptal aspect of the left atrium. PLAN: Resume Xarelto. Consider antiarrhythmic agents versus redo ablation if recurrent atrial arrhythmias are seen after the 3 months. POS: [facility]IAO OBRIEN
[2017-12-09] MEDS ORDERED: Rivaroxaban 10 MG TAB PO SCH (17:00)
[2017-12-09] MEDS ORDERED: Sucralfate 1 GM TAB PO SCH (18:00)
[2017-12-09] MEDS ORDERED: Aspirin 81 mg Enteric Coated Tablet PO SCH (21:00)
[2017-12-09] MEDS ORDERED: Atorvastatin Calcium 20 MG TAB PO SCH (21:00)
[2017-12-10] MEDS ORDERED: Levothyroxine Sodium 25 MCG TAB PO SCH (06:00)
[2017-12-10] MEDS ORDERED: Furosemide 40 MG/4 ML VIAL SLOW IVP SCH (09:30)
[2017-12-10 11:52] VITALS: BP 140/81; TEMP 98.1
--- NOTE | 2017-12-10 14:19 | SS ---
DATE OF ADMISSION: 12/09/2017 DATE OF DISCHARGE: 12/10/2017 ATTENDING PHYSICIAN: Dr. Ethan Jett CONDITION ON DISCHARGE: Stable. DIAGNOSIS: Atrial fibrillation. PROCEDURES PERFORMED: On 12/09/2017 the patient had pulmonary venous antrum isolation at which poin t the patient had all 4 pulmonary veins isolated in addition to the posterior wall as well as inferob germán and inferoseptal ablation. The patient was found to have an atrial tachycardia at the right inf erior septal aspect of the left atrium which was also ablated. He also had inferior and posterior li li withdrawn to isolate the posterior wall. With Isuprel challenge there were no additional arrhyth mias induced at the end of the ablation. The patient has recovered without complication. HISTORY OF PRESENT ILLNESS: Mr. You is here for an elective outpatient pulmonary venous antru m isolation for his atrial fibrillation which has been inadequately suppressed with antiarrhythmic th erapy. He has required multiple cardioversions in the past and has been symptomatic with his arrhyth mias. He has had an uneventful recovery from his ablation and is doing well, currently, maintaining a sinus mechanism. He does have some occasional atrial ectopy on court monitor. His vital signs are stable and he is voiding without difficulty. Most recent vital signs include temperature 98.1, pulse 71, respirations 18, oxygen saturation on [place] m air is 96%, blood pressure 140/81. DISCHARGE MEDICATIONS: Aspirin 81 mg daily, atorvastatin calcium 20 mg daily. Furosemide 40 mg ena y x3 days, then as needed for symptoms of edema and shortness of breath. Levothyroxine 25 mcg daily , metoprolol 75 mg b.i.d., olmesartan 40 mg daily, Protonix 40 mg daily x14 days, potassium chloride 20 mEq daily x3 days, then as needed whenever taking Lasix, Xarelto to 20 mg daily, Carafate 1 gram q.i.d. x2 weeks. The patient is to discontinue Multaq. DISCHARGE INSTRUCTIONS: The patient has followup appointment in 6 weeks. He will be mailed an event monitor to use for the next 6 months, sending at least 1 transmission daily and with any recurrent s ymptoms of arrhythmia. He was sent with a prescription for potassium, Lasix, Protonix and Carafate. No soaking baths for 1 week. No lifting greater than 10 pounds for the next week. The patient is c leared to return to work in 3 days if he is feeling well. He is to contact the office for any additi onal instructions or concerns that he may have. Dictated by: LUIS CARLOS Santizo
== END 2017-12-10 14:34 | disposition home or self-care (01) ==
LOC: CCL 05:51 → 2SW 12:38
PROVIDERS: ADMIT Internal Medicine Cardiovascular Disease; ATTEND Internal Medicine Cardiovascular Disease
PROC: 4A023FZ Measurement of Cardiac Rhythm, Percutaneous Approach (ICD-10-PCS; principal; 2017-12-09)
PROC: 4A0234Z Measurement of Cardiac Electrical Activity, Percutaneous Approach (ICD-10-PCS; 2017-12-09)
PROC: 02583ZZ Destruction of Conduction Mechanism, Percutaneous Approach (ICD-10-PCS; 2017-12-09)
PROC: 02K83ZZ Map Conduction Mechanism, Percutaneous Approach (ICD-10-PCS; 2017-12-09)
DX: I48.0 Paroxysmal atrial fibrillation (principal); I25.10 Atherosclerotic heart disease of native coronary artery without angina pectoris; Z79.82 Long term (current) use of aspirin; Z79.01 Long term (current) use of anticoagulants; Z79.899 Other long term (current) drug therapy; Z85.828 Personal history of other malignant neoplasm of skin; Z98.890 Other specified postprocedural states
CPT/HCPCS: 76942; 80048; 85025; 85347 ×2; 85610; 85730; 93005; 93613; 93622; 93623; 93655; 93656; 93662; 96374; 96375; C1730; C1731; C1732; C1759; C1769; G0378; 93010; J1644; J1940; J2250; J2405; J2704; J2720; J3010

== ENCOUNTER 2018-02-06 12:27 | Outpatient (CLI) | payer MEDICARE ==
[2018-02-06 14:31] LABS: Hemoglobin 14.6 g/dL (14.0-18.0); Mean Corpuscular HGB CONC 32.8 g/dL (32.0-36.0); Mean Corpuscular Hemoglobin 30.9 pg (27.0-31.0); Mean Corpuscular Volume 94.2 fl (80.0-94.0); Mean Platelet Volume 7.8 fL (7.4-10.4); Platelet Count 212 thou/uL (130-400); RBC Distribution Width 12.6 % (11.5-14.5); Red Blood Cell (RBC) Count 4.73 mill/uL (4.70-6.10); White Blood Cell (WBC) Count 5.8 thou/uL (4.8-10.8)
[2018-02-06 14:38] LABS: INR-International Normal Ratio 1.9; PTT 38.8 SEC (22.9-36.1); Prothrombin Time 22.5 SEC (12.0-14.7)
[2018-02-06 15:07] LABS: Anion Gap 10 mmol/L (10-20); BUN (Urea Nitrogen) 21 mg/dL (8.4-25.7); Calc. Creatinine Clearance 0 mL/min (70-130); Calcium 9.8 mg/dL (7.8-10.44); Carbon Dioxide 23 mmol/L (23-31); Chloride 108 mmol/L (98-107); Estimated GFR-MDRD 50; Glucose 85 mg/dL (80-115); Sodium 137 mmol/L (136-145)
--- NOTE | 2018-02-09 08:49 | EKG ---
Test Reason : Blood Pressure : / mmHG Vent. Rate : 086 BPM Atrial Rate : 258 BPM P-R Int : 000 ms QRS Dur : 094 ms QT Int : 212 ms P-R-T Axes : -74 033 160 degrees QTc Int : 253 ms Atrial fibrillation Nonspecific T wave abnormality , probably digitalis effect Abnormal ECG Confirmed by CARMENZA CHERRY, KATERINA ([id number]) on 02/09/2018 8:49:05 AM Referred By: [facility] Confirmed By:KATERINA HERR MD
== END 2018-02-06 12:28 | disposition home or self-care (01) ==
LOC: LABBT 12:27
PROVIDERS: ATTEND Internal Medicine Cardiovascular Disease
DX: Z01.818 Encounter for other preprocedural examination (principal); I48.91 Unspecified atrial fibrillation
CPT/HCPCS: 80048; 85027; 85610; 85730; 93005; 93010

== ENCOUNTER 2018-02-10 07:02 | Day surgery (SDC) | payer MEDICARE ==
[2018-02-06 12:42] VITALS: BMI 33.9
[2018-02-10] MEDS ORDERED: PROPOFOL 20 ML ONE (09:48)
[2018-02-10] MEDS ORDERED: PROPOFOL 200 MG/20 ML VIAL ONE (13:59)
--- NOTE | 2018-02-12 15:39 | OP ---
DATE OF PROCEDURE: 04/12/2018 PROCEDURE: Cardioversion. REASON FOR PROCEDURE: Recurrent atrial arrhythmias. The patient is fully anticoagulated. Continues taking Multaq and Xarelto. PROCEDURE: The patient received deep sedation by Anesthesia specialist. After adequate level of sed ation achieved, a synchronized 70 joule shock promptly converted the patient back to sinus rhythm, re turned rates are sinus rhythm in the 60s. CONCLUSION: Successful cardioversion. PLAN: Continue current management.
== END 2018-02-10 11:30 | disposition home or self-care (01) ==
LOC: CCL 07:02
PROVIDERS: ATTEND Internal Medicine Cardiovascular Disease
PROC: 5A2204Z Restoration of Cardiac Rhythm, Single (ICD-10-PCS; principal; 2018-02-10)
DX: I49.8 Other specified cardiac arrhythmias (principal); I48.1 Persistent atrial fibrillation; I48.4 Atypical atrial flutter; I25.10 Atherosclerotic heart disease of native coronary artery without angina pectoris; I10 Essential (primary) hypertension; E78.5 Hyperlipidemia, unspecified; Z79.01 Long term (current) use of anticoagulants; Z79.82 Long term (current) use of aspirin; Z79.899 Other long term (current) drug therapy
CPT/HCPCS: 92960; J2704

== ENCOUNTER 2018-11-10 19:12 | Inpatient (IN) | payer MEDICARE ==
[2018-11-10 19:31] LABS: #Basophils 0.1 thou/uL (0.0-0.2); #Eosinphils 0.1 thou/uL (0.0-0.7); #Lymphocytes 2.1 thou/uL (1.20-3.40); #Monocytes 0.6 thou/uL (0.11-0.59); #Neutrophils 3.2 thou/uL (1.40-6.50); %Basophils 0.9 % (0.0-1.0); %Eosinophils 1.1 % (0.0-10.0); %Lymphocytes 35.1 % (21.0-51.0); %Monocytes 10.1 % (0.0-10.0); %Neutrophils 52.7 % (42.0-75.0); Hemoglobin 14.8 g/dL (14.0-18.0); Mean Corpuscular Hemoglobin 28.8 pg (27.0-31.0); Mean Corpuscular Volume 95.8 fL (78.0-98.0); Platelet Count 230 thou/uL (130-400); RBC Distribution Width 12.1 % (11.5-14.5); Red Blood Cell (RBC) Count 5.16 mill/uL (4.70-6.10); White Blood Cell (WBC) Count 6.1 thou/uL (4.8-10.8)
--- NOTE | 2018-11-10 19:46 | RAD ---
PORTABLE FRONTAL CHEST RADIOGRAPH 11/10/18 COMPARISON: 09/11/17 HISTORY: Palpitations, tachycardia. FINDINGS: There is no pneumothorax or pleural fluid and no focal consolidation or alveolar edema. Heart and med iastinal contours are stable. Mild linear density in the left costophrenic angle noted. IMPRESSION: No acute findings. POS: [facility]
[2018-11-10 19:53] LABS: ALT (SGPT) 15 U/L (8-55); AST (SGOT) 16 U/L (5-34); Albumin 4.2 g/dL (3.4-4.8); Alkaline Phosphatase 153 U/L (40-150); Anion Gap 15 mmol/L (10-20); BUN (Urea Nitrogen) 18 mg/dL (8.4-25.7); Bilirubin, Total 0.5 mg/dL (0.2-1.2); CK (CPK) 58 U/L (30-200); Calc. Creatinine Clearance 0 mL/min (70-130); Calcium 9.5 mg/dL (7.8-10.44); Carbon Dioxide 23 mmol/L (23-31); Chloride 107 mmol/L (98-107); Estimated GFR-MDRD 52; Globulin 2.8 g/dL (2.4-3.5); Glucose 128 mg/dL (80-115); Lipase 54 U/L (8-78); Potassium 3.6 mmol/L (3.5-5.1); Sodium 141 mmol/L (136-145)
[2018-11-10] MEDS ORDERED: Diltiazem 125 MG/25 ML ONE (20:01)
[2018-11-10] MEDS ORDERED: Diltiazem HCl 125 MG, Admixture Fee 1 EACH in Sodium Chloride 0.9% 100 ML IVPB SCH (20:15)
[2018-11-10 21:31] LABS: Bilirubin Negative (Negative); Blood, Urine Negative (Negative); Clarity CLEAR (Clear); Glucose, Urine (Dipstick) Negative (Negative); Leukocyte Negative (Negative); Nitrite Negative (Negative); Protein, Urine (Dipstick) Negative (Neg-Trace); Specific Gravity, Urine 1.011 (1.002-1.036); Urobilinogen 0.2 mg/dL (0.2-1.0)
[2018-11-11] MEDS ORDERED: Metoprolol Tartrate 5 MG/5 ML VIAL ONE (02:47)
[2018-11-11] MEDS ORDERED: Melatonin 3 MG TAB PO PRN (07:40)
[2018-11-11] MEDS ORDERED: Zolpidem Tartrate 5 MG TAB PO PRN (07:40)
[2018-11-11] MEDS ORDERED: Amiodarone 200 MG TAB PO SCH (09:00)
[2018-11-11] MEDS ORDERED: Furosemide 40 MG TAB PO PRN (09:00)
[2018-11-11] MEDS: Finasteride 5 MG TAB PO SCH (10:46)
[2018-11-11] MEDS ORDERED: Acetaminophen 500 MG TAB PO PRN (13:50)
[2018-11-11] MEDS ORDERED: Morphine 4 MG/ML VIAL SLOW IVP PRN (13:50)
[2018-11-11] MEDS: Levothyroxine Sodium 25 MCG TAB PO SCH (14:48)
--- NOTE | 2018-11-11 14:55 | HP ---
The patient's PCP is myself, Dr. Keven Liu. CHIEF COMPLAINT: Palpitations. HISTORY OF PRESENT ILLNESS: The patient is in a long standing history with recurrent atrial fibrillation. He has undergone multiple cardioversions in the past probably up in [place] and most recently last year with Dr. Jett, followed by Dr. Duval on outpatient basis for the Cardiology. The patient states he has had intermittent palpations for one week, however, did not go sustain and did not feel significant until yesterday evening. The patient had some leftover Xarelto from prior treatment of anticoagulation that he initiated last night and presented to the emergency department, where he was confirmed to be in atrial fibrillation with RVR, rate up into the 140s. The patient states he is comfortable on the Cardizem drip and has no acute complaints other than difficulty sleeping in the emergency room bed as the hospital is currently full. Review of past medical, social, and surgical history includes; no known drug allergies. Obstructive sleep apnea, coronary artery disease, hypothyroidism, hypertension, paroxysmal atrial fibrillation, CKD, stage 3, BPH with lower urinary tract symptoms. HOME MEDICATIONS: Include; 1. Atorvastatin 20 mg. 2. Levothyroxine 25 mcg. 3. Amlodipine 5 mg. 4. Potassium chloride 10 mEq twice daily. 5. Finasteride 1 mg. 6. Furosemide 40 mg. 7. Amiodarone 200 mg. 8. Tamsulosin 0.4 mg. 9. Metoprolol 100 mg extended release. 10. Xarelto 20 mg. 11. Aspirin 81 mg. 12. Benicar 40 mg. The patient is status post appendectomy and has had several moles removed on skin and/or cancer, has dermatologists he follows in [place]. The patient has prior angioplasty in 1985. The patient is a former smoker, quit in 1993, currently retired and . REVIEW OF LABORATORY WORK: White blood cell count of 6.1, hemoglobin of 14.8, platelet count of 230. D-dimer 0.34. Troponin x1 less than 0.01. TSH of 3.2. Sodium 141, potassium of 3.6, chloride 107, BUN of 18, creatinine of 1.3, glucose of 128, calcium 9.5, AST of 16, ALT of 15, alkaline phosphatase slightly elevated at 153, albumin of 4.2. Urinalysis normal. Specific gravity is 1.011. Chest x-ray without acute cardiopulmonary events. On more formal review of systems, the patient denies fever or chills. Denies cough or congestion. Positive palpations. No shortness of breath or chest pain. Otherwise, no cough or wheeze. No abdominal pain. No change in bowel movements. No change in baseline. Trace lower extremity edema. No confusion. No syncope. PHYSICAL EXAMINATION: VITAL SIGNS: On review of vital signs, pulse in the emergency department was in high 80s, blood pressure 130s/80s, and oxygen saturation of 99% on room air. GENERAL: The patient is alert, oriented, in no acute distress. HEENT: Head, normocephalic and atraumatic. Extraocular movements are intact. Sclerae are white. Oral mucosa is moist. NECK: Supple. HEART: Irregularly irregular. No murmurs auscultated. LUNGS: Clear to auscultation bilaterally. No rubs or wheezes. ABDOMEN: Soft and nontender. Positive bowel sounds throughout. Protuberant. EXTREMITIES: Lower extremities with no pitting edema. No cyanosis. NEUROLOGIC: The patient is alert and oriented x3. No focal deficits. Speech is normal. ASSESSMENT AND PLAN: Recurrent atrial fibrillation with rapid ventricular response. The patient had prior been in sinus rhythm following cardioversion earlier last year. We will consult Dr. Duval for further management. Continuing the patient on Cardizem drip at this point time as he is rate controlled. Continue the patient's home medications for hypertension and benign prostatic hyperplasia. Continue home medications for hypothyroidism. We will cover with CPAP for obstructive sleep apnea at night, restarting the patient's Xarelto this evening if Cardiology plans to no procedures. We will currently hold the patient with clear liquids only until Cardiology clears and continue to follow along. Job ID: [id number]
[2018-11-11 15:21] VITALS: BMI 34.2
[2018-11-11] MEDS: Rivaroxaban 10 MG TAB PO SCH (20:15)
[2018-11-11] MEDS: Atorvastatin Calcium 20 MG TAB PO SCH (20:16)
[2018-11-11] MEDS: Tamsulosin HCl 0.4 MG CAP PO SCH (20:16)
[2018-11-12 05:51] LABS: #Basophils 0.1 thou/uL (0.0-0.2); #Eosinphils 0.1 thou/uL (0.0-0.7); #Lymphocytes 1.3 thou/uL (1.20-3.40); #Monocytes 0.5 thou/uL (0.11-0.59); %Basophils 1.6 % (0.0-1.0); %Eosinophils 1.8 % (0.0-10.0); %Lymphocytes 26.7 % (21.0-51.0); %Monocytes 10.1 % (0.0-10.0); %Neutrophils 59.8 % (42.0-75.0); Hemoglobin 14.5 g/dL (14.0-18.0); Mean Corpuscular HGB CONC 32.7 g/dL (32.0-36.0); Mean Corpuscular Hemoglobin 30.9 pg (27.0-31.0); Mean Corpuscular Volume 94.5 fL (78.0-98.0); Mean Platelet Volume 8.2 fL (7.4-10.4); Platelet Count 197 thou/uL (130-400); RBC Distribution Width 12.2 % (11.5-14.5); Red Blood Cell (RBC) Count 4.69 mill/uL (4.70-6.10)
[2018-11-12] MEDS: Levothyroxine Sodium 25 MCG TAB PO SCH (06:03)
[2018-11-12 06:13] LABS: ALT (SGPT) 12 U/L (8-55); AST (SGOT) 12 U/L (5-34); Albumin 3.5 g/dL (3.4-4.8); Alkaline Phosphatase 125 U/L (40-150); Anion Gap 10 mmol/L (10-20); BUN (Urea Nitrogen) 24 mg/dL (8.4-25.7); Bilirubin, Total 0.5 mg/dL (0.2-1.2); Calc. Creatinine Clearance 76 mL/min (70-130); Calcium 9.1 mg/dL (7.8-10.44); Carbon Dioxide 25 mmol/L (23-31); Chloride 108 mmol/L (98-107); Estimated GFR-MDRD 52; Globulin 2.7 g/dL (2.4-3.5); Glucose 115 mg/dL (80-115); Potassium 3.7 mmol/L (3.5-5.1); Protein, Total 6.2 g/dL (5.8-8.1); Sodium 139 mmol/L (136-145)
--- NOTE | 2018-11-12 08:23 | CON ---
DATE OF CONSULTATION: REASON FOR CONSULTATION: 1. Atrial fibrillation. 2. . Job ID: [id number]
[2018-11-12] MEDS: Finasteride 5 MG TAB PO SCH (09:28)
[2018-11-12] MEDS: Dronedarone HCl 400 MG TAB PO SCH ×2 (09:28→17:31)
--- NOTE | 2018-11-12 15:31 | PDOC.CTH ---
Cardiology Progress Note - Subjective Patient feeling much better overall. No complaints today. Rate-controlled AF in 90s on cardizem gtt. - Objective Vital Signs Temp Pulse Resp BP BP Pulse Ox 11/12/18 11:58 98.4 F 78 16 119/70 96 11/12/18 07:54 97.5 F L 63 16 115/76 97 11/12/18 04:15 97.5 F L 92 18 112/72 96 Weight 225 lb 8 oz 11/11/18 11/12/18 11/13/18 06:59 06:59 06:59 Intake Total 1065.5 600 Output Total 650 200 Balance 415.5 400 - Physical Examination General/Neuro: alert & oriented x3 Neck: no JVD present Lungs: CTA Heart: other: (IRR) Abdomen: NT/ND Extremities: other: (Trace bilateral JEAN PAUL) - Telemetry Telemetry Rhythm: AF - Labs Result Diagrams: 11/12/18 05:30 11/12/18 05:30 Troponin/CKMB Troponin I Less than 0.010 ng/mL (< 0.028) 11/10/18 19:23 - Assessment/Plan 1. Paroxysmal AF s/p previous PVI and DCCVs in the past 2. HTN 3. CHRIS 4. Hypothyroidism Stable on current meds. Plan for JANNETH/DCCV tomorrow afternoon. Risks discussed with patient. He is agreeable.
[2018-11-12] MEDS: Atorvastatin Calcium 20 MG TAB PO SCH (20:27)
[2018-11-12] MEDS: Rivaroxaban 10 MG TAB PO SCH (20:27)
[2018-11-12] MEDS: Tamsulosin HCl 0.4 MG CAP PO SCH (20:27)
--- NOTE | 2018-11-13 00:46 | PRG ---
DATE OF SERVICE: 11/12/2018 HISTORY OF PRESENT ILLNESS: The patient remains on Cardizem drip with rate control, paroxysmal atrial fibrillation per reports of nursing staff. The patient may undergo a transesophageal echocardiogram with cardioversion tomorrow. The patient has no acute complaints. PHYSICAL EXAMINATION: VITAL SIGNS: 98.4 temperature, pulse of 78, respiratory rate of 16, oxygen saturation 97% on room air, blood pressure of 124/76. GENERAL: The patient is alert and oriented, in no acute distress. HEENT: Head is normocephalic, atraumatic. Extraocular movements are intact. Sclerae are white. Oral mucosa is moist. NECK: Supple. HEART: Irregularly irregular rhythm. LUNGS: Clear to auscultation bilaterally. No rubs or wheezes. ABDOMEN: Positive bowel sounds throughout. EXTREMITIES: Lower extremities without cyanosis or edema. NEUROLOGIC: The patient is alert and oriented x3. ASSESSMENT AND PLAN: Return of atrial fibrillation with rapid ventricular rate, currently rate controlled with Cardizem drip. The patient to undergo procedure tomorrow as above. The patient had difficulty with CPAP machine last night, however, did report good sleep without the machine. We will continue current medications otherwise for blood pressure. Dr. Duval's team has started the patient on Multaq. We will continue to follow along. Job ID: [id number]
[2018-11-13] MEDS: Levothyroxine Sodium 25 MCG TAB PO SCH (03:40)
[2018-11-13] MEDS: Finasteride 5 MG TAB PO SCH (08:43)
[2018-11-13] MEDS: Dronedarone HCl 400 MG TAB PO SCH (08:48)
[2018-11-13 12:16] VITALS: BP 134/94; TEMP 98
--- NOTE | 2018-11-13 13:33 | PRG ---
DATE OF SERVICE: SUBJECTIVE: Mr. You is doing well. His rate is controlled. He has been off his IV Cardizem. He is currently on Toprol 75 mg b.i.d. OBJECTIVE: VITAL SIGNS: Blood pressure 134/94, pulse 92, and temperature 98. LUNGS: Clear to auscultation. HEART: Irregularly irregular. ABDOMEN: Soft, nontender, and nondistended. EXTREMITIES: No edema. IMPRESSION: Atrial fibrillation. RECOMMENDATIONS: I had a long discussion with Mr. You about how to proceed. We discussed JANNETH with cardioversion. Also stated that now he is rate controlled, we could do this as an outpatient. He prefers at this point to proceed with outpatient therapy. I have discontinued his Multaq. He states it has been very expensive for him in the past. At this point, we recommend rate control in addition to anticoagulation therapy. I would recommend anticoagulation therapy for four weeks and then discuss cardioversion. We will likely place him on flecainide or propafenone. Otherwise from my standpoint, I have no further recommendations. Job ID: [id number]
--- NOTE | 2018-11-14 09:28 | DIS ---
DATE OF ADMISSION: 11/12/2018 DATE OF DISCHARGE: 11/13/2018 PRIMARY CARE PHYSICIAN: Dr. Keven Liu. CHIEF COMPLAINT: Palpitations. HISTORY OF PRESENT ILLNESS: On admission, the patient with multiple cardioversions and attempted ablations in the past for atrial fibrillation with various bouts of RVR. The patient has paroxysmal atrial fibrillation at baseline, started to have some episodic palpitations 1 week prior to admission, however, went to florid tachycardia. The patient took aspirin and Xarelto, presented to the emergency department, was placed inpatient for Cardiology to follow up. Dr. Duval evaluated the patient and wanted to proceed with cardioversion following a JANNETH to ensure no clots were present on the patient's valves; however, as hospital is currently in [facility], the patient quickly was triaged to low priority, given the option of waiting for cardioversion later in the week versus outpatient. The patient elected outpatient. He was ambulatory and tolerating diet well and heart rate was last in the 90s. The patient without palpitation at this level. Cardizem drip was initially used to stabilize the patient and transitioned over to increase in metoprolol to 100 mg b.i.d. from 50 for maintenance. Plan per discussion with Dr. Duval is to initiate flecainide in 2 weeks after the patient has been on Xarelto and increase beta-pam and then proceed at the end of the month in 4 weeks with JANNETH and cardioversion. The patient has followup with Dr. Duval in 2 weeks. Recommended the patient to follow up for blood pressure monitoring in [address] Keven Liu given the patient discontinued amlodipine and initiated on new dose of metoprolol. He is to continue his restarted Xarelto, which was refilled to his home pharmacy. DISCHARGE MEDICATIONS: Formally included; 1. Atorvastatin 20 mg. 2. Finasteride 1 mg. 3. Olmesartan 40 mg. 4. Tamsulosin 0.4 mg. 5. Furosemide 40 mg. 6. Levothyroxine 25 mg. 7. Metoprolol succinate 100 mg b.i.d. 8. Klor-Con 10 mEq two tablets 2 to 3 times daily. 9. Xarelto 20 mg at bedtime. DISCHARGE DIAGNOSES: Include; 1. Recurrent atrial fibrillation with resolved rapid ventricular response. 2. Hypertension. 3. Benign prostatic hyperplasia. 4. Hypothyroidism. 5. Obstructive sleep apnea, on CPAP. DISCHARGE DIET: Heart healthy. DISCHARGE CONDITION: Good. DISCHARGE ACTIVITY: Limited to walking. No significant stair climbing or heavy lifting or jogging until cleared by Cardiology. Job ID: [id number]
== END 2018-11-13 14:05 | disposition home or self-care (01) | DRG 310 ==
LOC: ERS 19:12 → ERHOLD 21:15 → 2SW 11-11 14:52 → OBSVTOIN 11-12 17:36
PROVIDERS: ADMIT Family Medicine; ATTEND Family Medicine
DX: I48.0 Paroxysmal atrial fibrillation (principal); I10 Essential (primary) hypertension; N40.0 Benign prostatic hyperplasia without lower urinary tract symptoms; E03.9 Hypothyroidism, unspecified; G47.33 Obstructive sleep apnea (adult) (pediatric); I25.10 Atherosclerotic heart disease of native coronary artery without angina pectoris; Z79.899 Other long term (current) drug therapy; Z79.82 Long term (current) use of aspirin; Z79.01 Long term (current) use of anticoagulants; Z87.891 Personal history of nicotine dependence; Z85.828 Personal history of other malignant neoplasm of skin
CPT/HCPCS: 36415; 71045; 80053; 81003; 82550; 83690; 84443; 84484; 85025; 85379; 93005; 94660; J7050

== ENCOUNTER 2018-11-21 09:58 | Day surgery (SDC) | payer MEDICARE, OTHER ==
[2018-11-21] MEDS ORDERED: PROPOFOL 20 ML ONE (11:58)
--- NOTE | 2018-11-24 07:39 | OP ---
DATE OF PROCEDURE: 11/21/2018 PREPROCEDURE DIAGNOSIS: Atrial fibrillation. POSTPROCEDURE DIAGNOSIS: Sinus rhythm. PROCEDURE PERFORMED: Successful cardioversion. DESCRIPTION OF PROCEDURE: The patient was consented for the procedure. Risks included, not limited to the following: Stroke, need for repeat cardioversion, failed cardioversion, as well as burning of skin. All questions were answered. Given the above, the patient agreed to proceed with above procedure. The patient underwent successful synchronized cardioversion at 150 joules. IMPRESSION: Successful synchronized cardioversion. Job ID: [id number]
--- NOTE | 2018-11-24 07:41 | OP ---
DATE OF PROCEDURE: 11/21/2018 PREPROCEDURE DIAGNOSIS: Atrial fibrillation. POSTPROCEDURE DIAGNOSIS: Atrial fibrillation. PROCEDURE PERFORMED: Transesophageal echocardiography. DESCRIPTION OF PROCEDURE: The patient was consented to the procedure, discussed procedure in full detail prior to the procedure. Risks include not limited to the following: Damage to teeth, mouth, back of throat, damage to esophagus requiring emergent surgery. All questions were answered. Given the above, the patient agreed to proceed above procedure. FINDINGS: Left atrial appendage is well visualized. Velocities are greater than 60 cm/second. No mass or vegetation present. IMPRESSION: No mass or vegetation present on the left atrial appendage. Job ID: [id number]
== END 2018-11-21 13:15 | disposition home or self-care (01) ==
LOC: CCL 09:58
PROVIDERS: ATTEND Internal Medicine Cardiovascular Disease
PROC: 5A2204Z Restoration of Cardiac Rhythm, Single (ICD-10-PCS; principal; 2018-11-21)
PROC: B246ZZ4 Ultrasonography of Right and Left Heart, Transesophageal (ICD-10-PCS; 2018-11-21)
DX: I48.91 Unspecified atrial fibrillation (principal); Z79.01 Long term (current) use of anticoagulants; Z79.899 Other long term (current) drug therapy
CPT/HCPCS: 92960; 93312; J2704

== ENCOUNTER 2019-01-13 11:13 | Day surgery (SDC) | payer MEDICARE, OTHER ==
[2019-01-12 15:31] VITALS: BMI 34.0
[2019-01-13 12:20] LABS: #Lymphocytes 1.2 thou/uL (1.20-3.40); #Monocytes 0.4 thou/uL (0.11-0.59); #Neutrophils 2.8 thou/uL (1.40-6.50); %Basophils 0.4 % (0.0-1.0); %Eosinophils 0.7 % (0.0-10.0); %Lymphocytes 28.1 % (21.0-51.0); %Monocytes 8.4 % (0.0-10.0); %Neutrophils 62.3 % (42.0-75.0); Hemoglobin 14.8 g/dL (14.0-18.0); Mean Corpuscular HGB CONC 32.8 g/dL (32.0-36.0); Mean Corpuscular Hemoglobin 30.5 pg (27.0-31.0); Mean Corpuscular Volume 92.9 fL (78.0-98.0); Mean Platelet Volume 7.8 fL (7.4-10.4); Platelet Count 196 thou/uL (130-400); RBC Distribution Width 12.6 % (11.5-14.5); Red Blood Cell (RBC) Count 4.85 mill/uL (4.70-6.10); White Blood Cell (WBC) Count 4.4 thou/uL (4.8-10.8)
[2019-01-13 12:25] LABS: Prothrombin Time 22.8 SEC (12.0-14.7)
[2019-01-13 12:26] LABS: PTT 38.1 SEC (22.9-36.1)
[2019-01-13] MEDS ORDERED: PROPOFOL 200 MG/20 ML VIAL ONE (12:33)
[2019-01-13 12:39] LABS: Anion Gap 10 mmol/L (10-20); BUN (Urea Nitrogen) 18 mg/dL (8.4-25.7); Calc. Creatinine Clearance 94 mL/min (70-130); Calcium 9.7 mg/dL (7.8-10.44); Carbon Dioxide 27 mmol/L (23-31); Chloride 108 mmol/L (98-107); Estimated GFR-MDRD 67; Glucose 100 mg/dL (80-115); Potassium 3.9 mmol/L (3.5-5.1); Sodium 141 mmol/L (136-145)
--- NOTE | 2019-01-13 14:34 | OP ---
DATE OF PROCEDURE: 01/13/2019 EXTERNAL CARDIOVERSION REPORT REASON FOR PROCEDURE: Mr. You is a 68-year-old male with prior history of intermittent atrial fibrillation since 2011, suppressed with amiodarone in the past, not maintaining sinus rhythm pulmonary venous isolation procedure in November of 2017, recurrent atrial fibrillation/atrial flutter and transient resumption of amiodarone was needed. He is presented with a late recurrence again, had the cardioversion done in October 2018. We are planning on another cardioversion. Cardioversion is performed now for symptom relief. The patient has been well anticoagulated with Xarelto. DESCRIPTION OF PROCEDURE: The patient received propofol by Anesthesia specialist after adequate level of sedation achieved, a synchronized 70 joule shock promptly converted the patient back to sinus rhythm about 70 beats per minute. The patient tolerated the procedure well. No complications noted. PLAN: Continue current medication. Plan outpatient ablation procedure. Job ID: [id number]
== END 2019-01-13 14:35 | disposition home or self-care (01) ==
LOC: CCL 11:13
PROVIDERS: ATTEND Internal Medicine Cardiovascular Disease
PROC: 5A2204Z Restoration of Cardiac Rhythm, Single (ICD-10-PCS; principal; 2019-01-13)
DX: I48.1 Persistent atrial fibrillation (principal); I48.4 Atypical atrial flutter; I25.10 Atherosclerotic heart disease of native coronary artery without angina pectoris; I10 Essential (primary) hypertension; E78.5 Hyperlipidemia, unspecified; Z79.01 Long term (current) use of anticoagulants; Z79.82 Long term (current) use of aspirin; Z79.899 Other long term (current) drug therapy; Z98.890 Other specified postprocedural states
CPT/HCPCS: 36415; 80048; 85025; 85610; 85730; 92960; 93005; 93010; J2704

== ENCOUNTER 2019-02-02 00:03 | Outpatient (CLI) | payer MEDICARE, OTHER ==
[2019-02-02 09:55] LABS: Hemoglobin 14.8 g/dL (14.0-18.0); Mean Corpuscular HGB CONC 32.1 g/dL (32.0-36.0); Mean Corpuscular Hemoglobin 30.7 pg (27.0-31.0); Mean Corpuscular Volume 95.7 fL (78.0-98.0); Mean Platelet Volume 8.1 fL (7.4-10.4); Platelet Count 174 thou/uL (130-400); RBC Distribution Width 12.7 % (11.5-14.5); White Blood Cell (WBC) Count 4.6 thou/uL (4.8-10.8)
[2019-02-02 10:09] LABS: INR-International Normal Ratio 1.5; PTT 36.6 SEC (22.9-36.1); Prothrombin Time 17.8 SEC (12.0-14.7)
[2019-02-02 10:12] LABS: Anion Gap 13 mmol/L (10-20); BUN (Urea Nitrogen) 16 mg/dL (8.4-25.7); Calc. Creatinine Clearance 0 mL/min (70-130); Calcium 9.6 mg/dL (7.8-10.44); Carbon Dioxide 25 mmol/L (23-31); Chloride 107 mmol/L (98-107); Estimated GFR-MDRD 67; Glucose 105 mg/dL (80-115); Potassium 3.7 mmol/L (3.5-5.1); Sodium 141 mmol/L (136-145)
== END 2019-02-02 00:04 | disposition home or self-care (01) ==
LOC: LABBT 00:03
PROVIDERS: ATTEND Specialist
DX: Z01.818 Encounter for other preprocedural examination (principal); I48.91 Unspecified atrial fibrillation
CPT/HCPCS: 80048; 85027; 85610; 85730; 93005; 93010

== ENCOUNTER 2019-02-03 05:53 | Observation (INO) | payer MEDICARE, OTHER ==
[2019-02-03] MEDS ORDERED: Heparin 10,000 UNITS/1 ML VIAL ONE (06:48)
[2019-02-03] MEDS ORDERED: Heparin 25,000 units/D5W 0 ML ONE (06:48)
[2019-02-03] MEDS ORDERED: Fentanyl 100 MCG/2 ML VIAL ONE ×2 (08:01→10:38)
[2019-02-03] MEDS ORDERED: HYDROmorphone 2 MG/ML VIAL SLOW IVP PRN (09:37)
[2019-02-03] MEDS ORDERED: Promethazine HCl 25 MG/ML VIAL IM PRN (09:37)
[2019-02-03] MEDS ORDERED: Meperidine HCl/PF 25 MG/ML VIAL SLOW IVP PRN (09:37)
[2019-02-03] MEDS ORDERED: Promethazine HCl 25 MG/ML VIAL SLOW IVP PRN (09:37)
[2019-02-03] MEDS ORDERED: Acetaminophen 1,000 MG in Premix Bag 1 BAG IVPB SCH (09:45)
[2019-02-03] MEDS ORDERED: Isoproterenol 0.2 MG/1 ML AMP ONE (09:59)
[2019-02-03] MEDS ORDERED: Protamine Sulfate 50 MG/5 ML VIAL ONE (10:28)
[2019-02-03] MEDS ORDERED: Acetaminophen/Codeine 30-300mg Tablet PO PRN ×2 (11:10)
[2019-02-03] MEDS ORDERED: Potassium Chloride 10 MEQ TAB PO PRN (11:18)
[2019-02-03] MEDS ORDERED: Furosemide 40 MG TAB PO PRN (11:20)
[2019-02-03] MEDS: Sucralfate 1 GM TAB PO SCH ×3 (13:36→20:36)
[2019-02-03 14:04] LABS: Hemoglobin 14.5 g/dL (14.0-18.0); Platelet Count 163 thou/uL (130-400)
[2019-02-03] MEDS ORDERED: Lidocaine 1% PF 5 ML VIAL ONE (14:44)
[2019-02-03] MEDS ORDERED: PROPOFOL 200 MG/20 ML VIAL ONE (14:44)
[2019-02-03] MEDS ORDERED: Glycopyrrolate 0.2 MG/ML 5 ML SYRINGE ONE (14:44)
[2019-02-03] MEDS ORDERED: Rocuronium Bromide 10 MG/ML (10ML VIAL) ONE (14:44)
[2019-02-03] MEDS ORDERED: Ondansetron PF 4 MG/2 ML Vial ONE (14:44)
[2019-02-03] MEDS ORDERED: Dexamethasone 20 MG/5 ML VIAL ONE (14:44)
[2019-02-03] MEDS ORDERED: Ondansetron PF 4 MG/2 ML Vial SLOW IVP PRN (16:40)
[2019-02-03] MEDS ORDERED: Rivaroxaban 10 MG TAB ONE (16:44)
--- NOTE | 2019-02-03 17:28 | OP ---
DATE OF PROCEDURE: 02/03/2019 PROCEDURE: Radiofrequency ablation for atrial fibrillation. PREOPERATIVE DIAGNOSIS: Atrial fibrillation. DESCRIPTION OF PROCEDURE: The patient came to the EP lab in the postobstructive state. Informed consent was obtained. A time-out was called. The patient was sedated by member of the anesthesia staff. Once the patient was adequately sedated, the right and left femoral regions as well as the right internal jugular region were prepped and draped in the usual sterile fashion. Using a modified Seldinger technique with ultrasound-guided access, access was obtained x2 in the right femoral vein, x1 in the left femoral vein, x1 in the right internal jugular vein. A 20-pole Duo-Deca catheter was advanced from the right internal jugular vein and placed with distal 10 poles into the coronary sinus for left atrial pacing and recording, the proximal 10 poles were placed along the adwoa terminalis and SVC area. An intracardiac echo was advanced in the left femoral vein through a 10-Kittitian sheath and placed in the right atrium for intraprocedural monitoring and guidance. Transseptal puncture was performed x2 using an SL0 and a LA multipurpose sheath after giving a bolus of heparin. A 20-mm 10-pole LASSO catheter was placed into the left atrium as was an STSF Carto ablation catheter. A 3D electroanatomical map was performed to locate the voltage of the ablation. Previous ablation targeted the pulmonary veins as well as the posterior wall and it appeared that for the most part, the previous ablation had succeeded with exception of very few areas that required additional ablation near the right inferior pulmonary vein. Septal area also ablation due to presence of prolonged fractionated signals in that area. Ablation along the lower posterior wall and coronary sinus as well as the anterior wall outside the appendage resulted in significant delay of the left atrial appendage, but no isolation. Isoproterenol was given and it appeared that the coronary sinus triggered atrial fibrillation and thus this was targeted for further radiofrequency ablation. Radiofrequency ablation was delivered within the coronary sinus epicardially as well as endocardially on the opposite side with isolation of the majority of the coronary sinus with exception of the ostium, which was difficult to isolate. No SVC triggers were found. The patient received 35 minutes of radiofrequency ablation. After ablation, the catheters were removed, sheaths were removed, and hemostasis was obtained by placement of a Cardiva Vascade closure device. The patient tolerated the procedure well and was discharged from the EP lab in stable condition. Of note, the HV interval was 58 milliseconds. PROCEDURES PERFORMED: EP study pulmonary vein isolation, 3D electroanatomical mapping, CS/LA pacing and recording, LV pacing and recording (did not show any retrograde activation), and additional ablation for atrial fibrillation as well as drug infusion. CONCLUSIONS: 1. Prior isolation of pulmonary vein exception of the right inferior pulmonary vein. 2. Redo ablation of the right inferior pulmonary vein as well as posterior wall coronary sinus and left atrial appendage. 3. Significant delay of the left atrial appendage signal. 4. Isolation of the majority of the coronary sinus. 5. Presence of coronary sinus triggers for atrial fibrillation. RECOMMENDATIONS: The patient will be at bedrest. He will be discharged with followup with Dr. Jett in about 6 to 8 weeks. Job ID: [id number]
[2019-02-03] MEDS ORDERED: Rivaroxaban 10 MG TAB PO SCH ×2 (18:00)
[2019-02-03] MEDS ORDERED: Atorvastatin Calcium 20 MG TAB PO SCH (21:00)
[2019-02-04] MEDS ORDERED: Levothyroxine Sodium 25 MCG TAB PO SCH (06:00)
[2019-02-04 07:37] VITALS: BP 152/79; TEMP 98.7
[2019-02-04] MEDS: Sucralfate 1 GM TAB PO SCH (08:00)
[2019-02-04] MEDS ORDERED: Multivit, Therapeutic 1 TAB PO SCH (09:00)
[2019-02-04] MEDS ORDERED: FINASTERIDE 1 MG PO SCH (09:00)
[2019-02-04] MEDS ORDERED: Tamsulosin HCl 0.4 MG CAP PO SCH (09:00)
[2019-02-04] MEDS ORDERED: Lactinex Tablet PO SCH (09:00)
[2019-02-04] MEDS ORDERED: Amlodipine 5 MG TAB PO SCH (09:00)
--- NOTE | 2019-02-04 12:09 | DIS ---
DATE OF ADMISSION: 02/03/2019 DATE OF DISCHARGE: 02/04/2019 ADMITTING PROVIDER: Roberto Ashford MD DIAGNOSIS: Atrial fibrillation/atrial flutter. PROCEDURES PERFORMED: Radiofrequency ablation for atrial fibrillation and atrial flutter. HISTORY OF PRESENT ILLNESS: Mr. You is a pleasant gentleman known to our practice for history of atrial fibrillation, who underwent his first PVI approximately 1 year ago. He had done well, although, unfortunately again have recurrences and this year additionally requiring cardioversion and is spontaneously converted recently for atypical atrial flutter. He is scheduled for redo ablation by Dr. Ashfodr, which was performed on 02/03/2019. During this ablation, he may require re-isolation with right inferior pulmonary vein as well as posterior wall with additional ablation provided to the coronary sinus and delay of the left atrial appendage. He has done well since defibrillation. He has not had any postoperative complication. He feels well. SUBJECTIVE: Mr. You denies any heart racing palpitations, chest pain, pressure, syncope, near syncope, stroke, or stroke-like symptoms. He was then ambulating throughout the schneider. He is tolerating p.o. intake. He is voiding normally after the Schneider removal. He has not had any pain, tenderness, or bleeding issues at his groin sites or his right EJ site. OBJECTIVE: VITAL SIGNS: Temperature 98.7, pulse 68, blood pressure 139/75, respirations 18, and oxygen is 96% on room air. GENERAL: The patient is alert and oriented, speech is clear, affect is appropriate, in no apparent distress. He is resting comfortably in bed. LUNGS: Clear to auscultation bilaterally. HEART: Rate is regularly regular. NECK: Hepatojugular reflux is negative. There is no jugular venous distention. EXTREMITIES: Warm and dry to touch without clubbing, cyanosis, or edema. NEUROLOGIC: Nonfocal. His gait is stable. DISCHARGE INSTRUCTIONS: 1. Follow up in 6 weeks . 2. No lifting more than 10 pounds for 1 week. 3. No driving for 2 days. 4. No for 7 days. 5. Light activity for 1 week, then is to resume gradually and as tolerated. 6. Continue Xarelto for stroke prophylaxis and contact PCP with any postablation concerns. DISCHARGE MEDICATIONS: We will resume his home medications as previously taking including finasteride, tamsulosin, Xarelto, potassium chloride, olmesartan medoxomil, multivitamin, Toprol XL, Synthroid, probiotic, furosemide 40 mg p.o. p.r.n. shortness of breath, Lipitor, Norvasc. New prescriptions provided for Sucralfate 1 g p.o. q.i.d. x2 weeks and Protonix 40 mg daily x1 month. CONDITION AT DISCHARGE: Stable. Job ID: [id number]
[2019-02-05] MEDS ORDERED: Sucralfate 1 GM TAB PO SCH (07:30)
[2019-02-05] MEDS ORDERED: Potassium Chloride 20 MEQ TAB PO SCH (08:00)
== END 2019-02-04 11:19 | disposition home or self-care (01) ==
LOC: CCL 05:53 → 2SW 11:11
PROVIDERS: ADMIT Specialist; ATTEND Specialist
PROC: 02583ZZ Destruction of Conduction Mechanism, Percutaneous Approach (ICD-10-PCS; principal; 2019-02-03)
PROC: 02K83ZZ Map Conduction Mechanism, Percutaneous Approach (ICD-10-PCS; 2019-02-03)
PROC: 4A023FZ Measurement of Cardiac Rhythm, Percutaneous Approach (ICD-10-PCS; 2019-02-03)
DX: I48.1 Persistent atrial fibrillation (principal); I48.4 Atypical atrial flutter; I25.10 Atherosclerotic heart disease of native coronary artery without angina pectoris; I10 Essential (primary) hypertension; E78.5 Hyperlipidemia, unspecified; Z79.01 Long term (current) use of anticoagulants; Z79.899 Other long term (current) drug therapy; Z98.890 Other specified postprocedural states
CPT/HCPCS: 76942; 85014; 85018; 85049; 85347 ×2; 93005 ×2; 93613; 93623; 93656; 93662; C1731; C1759; C1769; G0378; 36415; 93010; J0131; J1100; J1644; J2001; J2405; J2704; J2720; J3010

== ENCOUNTER 2019-06-25 09:58 | Outpatient (CLI) | payer MEDICARE, OTHER ==
[2019-06-25 10:59] LABS: #Eosinphils 0.1 thou/uL (0.0-0.7); #Lymphocytes 1.3 thou/uL (1.20-3.40); #Monocytes 0.5 thou/uL (0.11-0.59); %Basophils 0.8 % (0.0-1.0); %Lymphocytes 26.6 % (21.0-51.0); %Monocytes 10.8 % (0.0-10.0); %Neutrophils 59.8 % (42.0-75.0); Hemoglobin 14.6 g/dL (14.0-18.0); Mean Corpuscular HGB CONC 33.6 g/dL (32.0-36.0); Mean Corpuscular Hemoglobin 31.6 pg (27.0-31.0); Mean Corpuscular Volume 93.9 fL (78.0-98.0); Mean Platelet Volume 7.8 fL (7.4-10.4); Platelet Count 176 thou/uL (130-400); RBC Distribution Width 12.2 % (11.5-14.5); Red Blood Cell (RBC) Count 4.62 mill/uL (4.70-6.10)
[2019-06-25 11:06] LABS: INR-International Normal Ratio 1.5; Prothrombin Time 18.4 SEC (12.0-14.7)
[2019-06-25 11:07] LABS: PTT 37.5 SEC (22.9-36.1)
[2019-06-25 11:21] LABS: Anion Gap 10 mmol/L (10-20); BUN (Urea Nitrogen) 18 mg/dL (8.4-25.7); Calc. Creatinine Clearance 0 mL/min (70-130); Calcium 9.5 mg/dL (7.8-10.44); Carbon Dioxide 24 mmol/L (23-31); Chloride 107 mmol/L (98-107); Estimated GFR-MDRD 70; Glucose 89 mg/dL (80-115); Sodium 137 mmol/L (136-145)
--- NOTE | 2019-06-26 11:04 | EKG ---
Test Reason : Blood Pressure : / mmHG Vent. Rate : 047 BPM Atrial Rate : 047 BPM P-R Int : 144 ms QRS Dur : 102 ms QT Int : 462 ms P-R-T Axes : 063 035 010 degrees QTc Int : 408 ms Marked sinus bradycardia Abnormal ECG Confirmed by KIRTI JAY ([id number]) on 06/26/2019 11:03:31 AM Referred By: MARIANA Confirmed By:KIRTI JAY
== END 2019-06-25 09:59 | disposition home or self-care (01) ==
LOC: LABBT 09:58
PROVIDERS: ATTEND Specialist
DX: Z01.818 Encounter for other preprocedural examination (principal); I48.91 Unspecified atrial fibrillation
CPT/HCPCS: 80048; 85025; 85610; 85730; 93005; 93010

== ENCOUNTER 2019-08-07 22:05 | Inpatient (IN) | payer MEDICARE, OTHER ==
--- NOTE | 2019-08-07 23:30 | RAD ---
EXAM: Single view of the chest HISTORY: Hypertension and chest palpitations COMPARISON: 11/10/2018 FINDINGS: Single view of the chest shows an enlarged but stable cardiomediastinal silhouette. There i s no evidence of consolidation, mass, or pleural effusion. The bones are unremarkable. IMPRESSION: No evidence of acute cardiopulmonary disease
[2019-08-07 23:45] LABS: #Basophils 0.1 thou/uL (0.0-0.2); #Lymphocytes 1.3 thou/uL (1.20-3.40); #Monocytes 0.6 thou/uL (0.11-0.59); #Neutrophils 4.1 thou/uL (1.40-6.50); %Basophils 0.9 % (0.0-1.0); %Eosinophils 0.7 % (0.0-10.0); %Lymphocytes 21.5 % (21.0-51.0); %Monocytes 10.4 % (0.0-10.0); %Neutrophils 66.5 % (42.0-75.0); Hemoglobin 16.3 g/dL (14.0-18.0); Mean Corpuscular HGB CONC 34.3 g/dL (32.0-36.0); Mean Corpuscular Hemoglobin 31.8 pg (27.0-31.0); Mean Corpuscular Volume 92.5 fL (78.0-98.0); Mean Platelet Volume 8.1 fL (7.4-10.4); Platelet Count 206 thou/uL (130-400); Red Blood Cell (RBC) Count 5.13 mill/uL (4.70-6.10); White Blood Cell (WBC) Count 6.1 thou/uL (4.8-10.8)
[2019-08-08 00:08] LABS: ALT (SGPT) 13 U/L (8-55); AST (SGOT) 15 U/L (5-34); Albumin 4.3 g/dL (3.4-4.8); Alkaline Phosphatase 163 U/L (40-110); Anion Gap 15 mmol/L (10-20); BUN (Urea Nitrogen) 23 mg/dL (8.4-25.7); Bilirubin, Total 0.6 mg/dL (0.2-1.2); Calc. Creatinine Clearance 0 mL/min (70-130); Calcium 9.4 mg/dL (7.8-10.44); Carbon Dioxide 20 mmol/L (23-31); Chloride 105 mmol/L (98-107); Estimated GFR-MDRD 42; Globulin 2.8 g/dL (2.4-3.5); Glucose 118 mg/dL (80-115); Potassium 3.8 mmol/L (3.5-5.1); Protein, Total 7.1 g/dL (5.8-8.1); Sodium 136 mmol/L (136-145)
[2019-08-08] MEDS ORDERED: Diltiazem 125 MG/25 ML ONE (01:30)
[2019-08-08 03:04] LABS: Troponin I Less than 0.010 ng/mL (< 0.028)
[2019-08-08 03:10] VITALS: BMI 34.3
[2019-08-08] MEDS ORDERED: Diltiazem HCl 125 MG, Admixture Fee 1 EACH in Sodium Chloride 0.9% 100 ML IVPB SCH (03:30)
[2019-08-08 06:19] LABS: Troponin I Less than 0.010 ng/mL (< 0.028)
[2019-08-08] MEDS ORDERED: Bisacodyl 10 MG SUPP PR PRN (12:30)
[2019-08-08] MEDS ORDERED: Diltiazem 125 MG in Sodium Chloride 0.9% 100 ML IVPB SCH (12:30)
[2019-08-08] MEDS ORDERED: Guaifenesin DM 100-10/5 ML UDCUP PO PRN (12:30)
[2019-08-08] MEDS ORDERED: Senokot S 8.6-50 MG TAB PO PRN (12:30)
[2019-08-08] MEDS: Sodium Chloride 0.9% 1,000 ML IV SCH (13:12)
[2019-08-08 13:48] LABS: Bacteria/HPF None Seen HPF (None Seen); Bilirubin Negative (Negative); Blood, Urine Negative (Negative); Clarity Clear (Clear); Glucose, Urine (Dipstick) Normal (Negative); Leukocyte Negative Leu/uL (Negative); Nitrite Negative (Negative); Protein, Urine (Dipstick) 10 mg/dL (Neg-Trace); RBC/HPF 0-3 HPF (0-3); Squamous Epithelial 0-3 HPF (0-3); Urobilinogen Normal mg/dL (Less than 2); WBC/HPF 0-3 HPF (0-3)
[2019-08-08 13:50] LABS: Urine Culture Reflex No No
--- NOTE | 2019-08-08 16:16 | HP ---
REASON FOR ADMISSION: Atrial fibrillation with RVR. HISTORY OF PRESENTING ILLNESS: The patient gives history of having increasing frequency of urination from Saturday 1:30 a.m. He was going every half an hour. This lasted until 10 in the morning. He was feeling dizzy when he stands up. Last night, his blood pressure dropped to 86/50 and his pulse was 150 at home. He tried to call Cardiology glass ribbon machine operator assistant, Dr. Brennan, and was advised to come to the emergency room. The patient in fact saw Dr. Liu last week and was told he has spastic bladder and was put on oxybutynin. No complaints of chest pain or shortness of breath. No complaints of orthopnea or PND. The patient has known history of chronic atrial fibrillation and has had multiple ablations and cardioversions in the past. PAST MEDICAL AND SURGICAL HISTORY: History of chronic atrial fibrillation with multiple prior ablations and cardioversions. He was in fact scheduled for ablation on June 21, but apparently the EP machine was broken and this was canceled then. He was to reschedule his appointment for the same from Dr. Jett. Hypothyroidism; hypertension; dyslipidemia; benign prostatic hypertrophy, has not seen a urologist for the same; history of skin cancer removed; prior history of coronary artery disease with three stents; appendectomy. CURRENT MEDICATIONS: The patient is on 1. Synthroid 25 mcg p.o. daily. 2. Toprol-XL 100 mg p.o. twice daily. 3. Benicar 40 mg p.o. daily. 4. Lipitor 20 mg p.o. daily. 5. Xarelto 20 mg p.o. daily. 6. Norvasc 5 mg p.o. daily. 7. Oxybutynin extended release 10 mg p.o. q.h.s. 8. Flomax 0.4 mg p.o. daily. 9. Finasteride 1 mg p.o. daily. 10. Lasix and K-Dur p.r.n. for lower extremity edema. ALLERGIES: NO KNOWN DRUG ALLERGIES. PERSONAL HISTORY: Does not abuse alcohol or drugs. The patient quit smoking in 1993. Has 3 children. FAMILY HISTORY: Mother has history of hypertension, colon cancer. She is currently in a longterm with dementia. Father at the age of 70 years. He has had history of OR, CABG, and pancreatic cancer. CODE STATUS: Full. REVIEW OF SYSTEMS: CONSTITUTIONAL: Negative for weight loss or gain, ability to conduct usual activities. SKIN: Negative for rash, itching. EYES: Negative for double vision, pain. ENT/MOUTH: Negative for nose bleeding, neck stiffness, pain, tenderness. CARDIOVASCULAR: Negative for palpitations, dyspnea on exertion, orthopnea. RESPIRATORY: Negative for shortness of breath, wheezing, cough, hemoptysis, fever or night sweats. GASTROINTESTINAL: Negative for poor appetite, abdominal pain, heartburn, nausea , vomiting, constipation, or diarrhea. GENITOURINARY: Negative for urgency, frequency, dysuria, nocturia. MUSCULOSKELETAL: Negative for pain, swelling. NEUROLOGIC/PSYCHIATRIC: Negative for anxiety, depression. ALLERGY/IMMUNOLOGIC: Negative for skin rash, bleeding tendency. PHYSICAL EXAMINATION: GENERAL: The patient is a 69-year-old male, who is currently not in any acute distress. VITAL SIGNS: Blood pressure 140/100, pulse was 160 on arrival, currently around 110 on Cardizem drip, respiratory rate 20 per minute, temperature 97.6 degrees Fahrenheit, saturating 96% on room air. NECK: Supple. No elevated JVD. HEENT: Eyes; extraocular muscles intact. Pupils reacting to light. Oral cavity, mucous membranes are dry. No exudates or congestion. CARDIOVASCULAR SYSTEM: S1 and S2 heard. Irregular rhythm. RESPIRATORY SYSTEM: Air entry 1+ bilateral. No rales or rhonchi. ABDOMEN: Soft. Bowel sounds heard. No tenderness, rigidity, or guarding. EXTREMITIES: No peripheral edema or calf tenderness. VASCULAR SYSTEM: Peripheral pulses 2+ bilateral. No ischemic ulcerations or gangrene. CENTRAL NERVOUS SYSTEM: No gross focal deficits noted. The patient is alert, awake, oriented well. PSYCHIATRIC SYSTEM: The patient's mood is euthymic. No hallucinations or delusions. LABORATORY DATA: White count of 6.1, H and H 16 and 47, platelet count is 206, MCV is 92 with 66% neutrophils. Serum bicarb 20, BUN 23, creatinine 1.6, serum glucose 118, magnesium 2.3, AST and ALT within normal limits, alkaline phosphatase 163. Troponin x3 negative. BNP 245, albumin 4.3. UA shows no evidence of infection. Chest x-ray done shows no acute cardiopulmonary abnormalities. EKG done at 11: 18 p.m. shows sinus rhythm at 74 beats per minute; at 11:22 p.m. shows atrial fibrillation with RVR at 117 beats per minute. CLINICAL IMPRESSION AND PLAN: The patient will be admitted to telemetry for known history of atrial fibrillation with rapid ventricular response at present. He is currently on Cardizem 5 mg an hour. We will continue with Xarelto and Toprol- XL 100 mg twice daily. We will hold his Norvasc for now. We will also increase his Flomax to twice daily and increase his finasteride to 5 mg daily. We will also continue Ditropan XL 10 mg daily. We will continue his Cozaar and Synthroid as before. We will obtain cardiology consultation with Dr. Brennan, who is glass ribbon machine operator assistant. Echo with 2D Doppler for LV function and to rule out thrombus. We will obtain urine cultures and blood cultures as well in view of his urinary symptoms. We will continue to closely monitor him on telemetry. The patient will likely need formal urology consultation on discharge. Job ID: [id number] MTDD
[2019-08-08 18:37] LABS: Hemoglobin 16.5 g/dL (14.0-18.0); Platelet Count 203 thou/uL (130-400)
[2019-08-08] MEDS: Tamsulosin HCl 0.4 MG CAP PO SCH (20:50)
[2019-08-08] MEDS: Atorvastatin Calcium 20 MG TAB PO SCH (20:50)
[2019-08-08] MEDS: Finasteride 5 MG TAB PO SCH (20:51)
[2019-08-08] MEDS: Famotidine 20 MG TAB PO SCH (20:51)
[2019-08-08] MEDS ORDERED: FLU VACC TS2019-20(65YR UP)/PF 180 MCG/0.5 ML SYRINGE IM ONE (21:00)
[2019-08-09 06:13] LABS: #Eosinphils 0.1 thou/uL (0.0-0.7); #Lymphocytes 1.2 thou/uL (1.20-3.40); #Monocytes 0.7 thou/uL (0.11-0.59); #Neutrophils 5.7 thou/uL (1.40-6.50); %Basophils 0.6 % (0.0-1.0); %Eosinophils 1.5 % (0.0-10.0); %Lymphocytes 15.2 % (21.0-51.0); %Monocytes 9.1 % (0.0-10.0); %Neutrophils 73.7 % (42.0-75.0); Hemoglobin 14.9 g/dL (14.0-18.0); Mean Corpuscular HGB CONC 33.7 g/dL (32.0-36.0); Mean Corpuscular Hemoglobin 31.6 pg (27.0-31.0); Mean Corpuscular Volume 93.8 fL (78.0-98.0); Platelet Count 168 thou/uL (130-400); RBC Distribution Width 12.2 % (11.5-14.5); Red Blood Cell (RBC) Count 4.72 mill/uL (4.70-6.10); White Blood Cell (WBC) Count 7.7 thou/uL (4.8-10.8)
[2019-08-09] MEDS: Levothyroxine Sodium 25 MCG TAB PO SCH (06:15)
[2019-08-09 06:33] LABS: Anion Gap 12 mmol/L (10-20); BUN (Urea Nitrogen) 20 mg/dL (8.4-25.7); Calc. Creatinine Clearance 86 mL/min (70-130); Calcium 8.6 mg/dL (7.8-10.44); Carbon Dioxide 22 mmol/L (23-31); Chloride 108 mmol/L (98-107); Estimated GFR-MDRD 60; Glucose 102 mg/dL (80-115); Potassium 3.8 mmol/L (3.5-5.1); Sodium 138 mmol/L (136-145)
[2019-08-09] MEDS: Oxybutynin ER 5 MG TAB PO SCH (08:59)
[2019-08-09] MEDS: Rivaroxaban 10 MG TAB PO SCH (08:59)
[2019-08-09] MEDS: Famotidine 20 MG TAB PO SCH ×2 (09:04→21:13)
[2019-08-09] MEDS: Tamsulosin HCl 0.4 MG CAP PO SCH ×2 (09:04→21:13)
[2019-08-09] MEDS: Sodium Chloride 0.9% 1,000 ML IV SCH (09:07)
[2019-08-09] MEDS: Losartan 25 MG TAB PO SCH (10:42)
--- NOTE | 2019-08-09 13:00 | PDOC.HOSPP ---
- Subjective Encounter Date: 08/09/19 Encounter Time: 11:00 Subjective: feels a bit dizzy when he stands up no palp or chest pain - Objective Vital Signs & Weight: Vital Signs (12 hours) Temp Pulse Resp BP Pulse Ox 08/09/19 11:55 98.4 F 130 H 16 120/84 96 08/09/19 08:55 98.1 F 136 H 14 117/86 96 08/09/19 03:25 97.7 F 104 H 20 108/72 92 L Weight Weight 228 lb 4.8 oz I&O: 08/08/19 08/09/19 08/10/19 06:59 06:59 06:59 Intake Total 15 660 Output Total 200 650 Balance -185 10 Result Diagrams: 08/09/19 06:02 08/09/19 06:02 Hospitalist ROS - Medication Medications: Active Medications Generic Name Dose Route Start Last Admin Trade Name Freq PRN Reason Stop Dose Admin Atorvastatin Calcium 20 mg 08/08/19 21:00 08/08/19 20:50 Lipitor PO 20 mg HS DEANNA Administration Famotidine 20 mg 08/08/19 21:00 08/09/19 09:04 Pepcid PO 20 mg BID DEANNA Administration Finasteride 5 mg 08/08/19 21:00 08/08/19 20:51 Proscar PO 5 mg HS DEANNA Administration Sodium Chloride 1,000 mls @ 50 mls/hr 08/08/19 12:30 08/09/19 09:07 Normal Saline 0.9% IV 1,000 mls .Q20H DEANNA Administration Levothyroxine Sodium 25 mcg 08/09/19 06:00 08/09/19 06:15 Synthroid PO 25 mcg 0600 DEANNA Administration Losartan Potassium 100 mg 08/09/19 09:00 08/09/19 10:42 Cozaar PO Not Given DAILY DEANNA Metoprolol Succinate 100 mg 08/08/19 21:00 08/09/19 09:04 Toprol Xl PO 100 mg BID DEANNA Administration Oxybutynin Chloride 10 mg 08/09/19 09:00 08/09/19 08:59 Ditropan Xl PO 10 mg DAILY DEANNA Administration Rivaroxaban 20 mg 08/09/19 09:00 08/09/19 08:59 Xarelto PO 20 mg DAILY DEANNA Administration Tamsulosin HCl 0.4 mg 08/08/19 21:00 10/20/19 09:04 Flomax PO 0.4 mg BID DEANNA Administration - Exam General Appearance: awake alert Eye: PERRL, anicteric sclera ENT: no oropharyngeal lesions, moist mucosa Neck: supple, no JVD Heart: no murmur, no gallops, irregular Respiratory: no wheezes, no rales Gastrointestinal: soft, non-tender, non-distended, normal bowel sounds Extremities: no cyanosis, no edema Neurological: cranial nerve grossly intact, no focal deficits Psychiatric: normal affect, A&O x 3 Hosp A/P (1) Atrial fibrillation with RVR Code(s): I48.91 - UNSPECIFIED ATRIAL FIBRILLATION Status: Acute (2) CAD (coronary artery disease) Code(s): I25.10 - ATHSCL HEART DISEASE OF [place] CORONARY ARTERY W/O ANG PCTRS Status: Chronic Qualifiers: Coronary Disease-Associated Artery/Lesion type: [place] artery [place] vs. transplanted heart: [place] heart Associated angina: without angina Qualified Code(s): I25.10 - Atherosclerotic heart disease of [place] coronary artery without angina pectoris (3) HLD (hyperlipidemia) Code(s): E78.5 - HYPERLIPIDEMIA, UNSPECIFIED Status: Chronic Qualifiers: Hyperlipidemia type: unspecified Qualified Code(s): E78.5 - Hyperlipidemia , unspecified (4) HTN (hypertension) Code(s): I10 - ESSENTIAL (PRIMARY) HYPERTENSION Status: Chronic Qualifiers: Hypertension type: essential hypertension Qualified Code(s): I10 - Essential (primary) hypertension (5) Hypothyroid Code(s): E03.9 - HYPOTHYROIDISM, UNSPECIFIED Status: Chronic Qualifiers: Hypothyroidism type: unspecified Qualified Code(s): E03.9 - Hypothyroidism , unspecified - Plan is on flomax bid, heart rate started to dip into 50's on cardizem drip still has freq of urination but better, is on flomax, finasteride and ditropan on toprol xl 100mg bid, cozaar held due to dizziness this am asp, xarelto, synthroid cardiology opinion hemostable will need outpt urology appt bladder residual post void around 100ml
--- NOTE | 2019-08-09 14:09 | CON ---
DATE OF CONSULTATION: HISTORY OF PRESENT ILLNESS: Enrique You is a 69-year-old white male, who is followed with Dr. Duval and Dr. Jett for his atrial arrhythmias. He states that he has had two radiofrequency ablations and a total of six cardioversions. He was chronically anticoagulated. He was supposed to have another radiofrequency ablation in early June, but apparently there were problems with equipment malfunction. This has not been rescheduled. He last saw Dr. Duval on July 21 and apparently was in sinus rhythm at that time. He also saw Dr. Jett 1 or 2 weeks ago and was in sinus rhythm, and no further plans were made. One week ago, he was placed on oxybutynin. He then in the financial foundations associate hours of August 08 had multiple episodes of nocturia. He also noted his heart rate was very fast, approximately 150 per minute. He was hypotensive with blood pressure of 88/50 and feeling quite dizzy. He called me and with the history, he was told to go to the emergency room. He has been found to be in atrial fibrillation and he is admitted. He denies any chest discomfort or shortness of breath. PAST MEDICAL HISTORY: Persistent atrial fibrillation with two ablations and six cardioversions, hypothyroidism, hypertension, hyperlipidemia, benign prostatic hypertrophy, coronary artery disease with stent placement. PAST SURGICAL HISTORY: Appendectomy, atrial fibrillation ablation x2. MEDICATIONS: 1. Synthroid 25 mcg daily. 2. Toprol-XL 100 mg b.i.d. 3. Benicar 40 daily. 4. Lipitor 20 daily. 5. Xarelto 20 daily. 6. Norvasc 5 mg daily. 7. Oxybutynin 10 mg at bedtime. 8. Flomax 0.4 daily. 9. Finasteride 1 mg daily. 10. Lasix and K-Dur p.r.n. ALLERGIES: NONE. SOCIAL HISTORY: He stopped smoking in the . He does not drink. REVIEW OF SYSTEMS: A 12-point review of systems is otherwise unremarkable. PHYSICAL EXAMINATION: VITAL SIGNS: Blood pressure 120/84, pulse of 130, atrial fibrillation on the monitor. HEENT: PERRL. NECK: Supple. CHEST: Clear. CARDIAC: S1 and S2 normal without any S3, S4, or murmurs. ABDOMEN: Normal bowel sounds without tenderness or organomegaly. EXTREMITIES: Revealed no clubbing, cyanosis, or edema. NEUROLOGIC: Grossly intact. SKIN: Warm and dry. LABORATORY DATA: EKG on admission revealed atrial fibrillation with rapid ventricular response at 117 per minute. Another EKG one hour later showed normal sinus rhythm. CBC is unremarkable. INR 1.5. Sodium 138, potassium 3.8, chloride 108, carbon dioxide 22, BUN 20, creatinine 1.20. Cardiac enzymes x3 are normal. IMPRESSION: 1. Persistent atrial fibrillation, status post two radiofrequency ablations and six cardioversions. He has had a recent increase in symptoms over the last several days. 2. Coronary artery disease, status post stent placement. 3. Hypertension. 4. Hyperlipidemia. 5. Obstructive sleep apnea. PLAN: The patient will be maintained on his anticoagulation. He probably should undergo redo ablated procedure. Dr. Jett will be consulted in the morning. Job ID: [id number]
[2019-08-09] MEDS: Atorvastatin Calcium 20 MG TAB PO SCH (21:13)
[2019-08-09] MEDS: Finasteride 5 MG TAB PO SCH (21:13)
[2019-08-10 04:54] LABS: #Eosinphils 0.2 thou/uL (0.0-0.7); #Lymphocytes 1.1 thou/uL (1.20-3.40); #Monocytes 0.7 thou/uL (0.11-0.59); #Neutrophils 4.8 thou/uL (1.40-6.50); %Basophils 0.6 % (0.0-1.0); %Eosinophils 2.5 % (0.0-10.0); %Lymphocytes 15.5 % (21.0-51.0); %Monocytes 10.1 % (0.0-10.0); %Neutrophils 71.3 % (42.0-75.0); Hemoglobin 13.5 g/dL (14.0-18.0); Mean Corpuscular HGB CONC 34.1 g/dL (32.0-36.0); Mean Corpuscular Hemoglobin 32.3 pg (27.0-31.0); Mean Corpuscular Volume 94.7 fL (78.0-98.0); Platelet Count 159 thou/uL (130-400); RBC Distribution Width 12.2 % (11.5-14.5); Red Blood Cell (RBC) Count 4.17 mill/uL (4.70-6.10); White Blood Cell (WBC) Count 6.8 thou/uL (4.8-10.8)
[2019-08-10 05:01] LABS: INR-International Normal Ratio 1.8; PTT 37.2 SEC (22.9-36.1); Prothrombin Time 20.5 SEC (12.0-14.7)
[2019-08-10 05:15] LABS: Anion Gap 12 mmol/L (10-20); BUN (Urea Nitrogen) 17 mg/dL (8.4-25.7); Calc. Creatinine Clearance 86 mL/min (70-130); Calcium 8.3 mg/dL (7.8-10.44); Carbon Dioxide 22 mmol/L (23-31); Chloride 106 mmol/L (98-107); Estimated GFR-MDRD 60; Glucose 104 mg/dL (80-115); Potassium 3.7 mmol/L (3.5-5.1); Sodium 136 mmol/L (136-145)
[2019-08-10] MEDS: Levothyroxine Sodium 25 MCG TAB PO SCH (05:58)
[2019-08-10] MEDS: Sodium Chloride 0.9% 1,000 ML IV SCH (05:58)
[2019-08-10] MEDS: Oxybutynin ER 5 MG TAB PO SCH (09:39)
[2019-08-10] MEDS: Losartan 25 MG TAB PO SCH (09:39)
[2019-08-10] MEDS: Rivaroxaban 10 MG TAB PO SCH (09:39)
[2019-08-10] MEDS: Tamsulosin HCl 0.4 MG CAP PO SCH (09:40)
[2019-08-10] MEDS: Famotidine 20 MG TAB PO SCH ×2 (09:40→20:59)
--- NOTE | 2019-08-10 16:45 | PDOC.HOSPP ---
- Subjective Encounter Date: 08/10/19 Encounter Time: 16:43 Subjective: Patient seen and examined for Afib with RVR. No CP. No new complaints. No overnight events - Objective Vital Signs & Weight: Vital Signs (12 hours) Temp Pulse Resp BP Pulse Ox 08/10/19 16:00 98.4 F 125 H 16 149/82 H 97 08/10/19 11:04 97.6 F 68 17 138/78 99 08/10/19 09:44 67 141/69 H 08/10/19 08:20 97.8 F 74 16 137/80 97 Weight Weight 228 lb 4.8 oz I&O: 08/09/19 08/10/19 08/11/19 06:59 06:59 06:59 Intake Total 660 2275 Output Total 650 1200 Balance 10 1075 Result Diagrams: 08/10/19 04:25 08/10/19 04:25 EKG Reviewed by me: Yes (Tele SR) Hospitalist ROS - Review of Systems Respiratory: denies: cough, dry, shortness of breath, hemoptysis, SOB with excertion, pleuritic pain, sputum, wheezing, other Cardiovascular: denies: chest pain, palpitations, orthopnea, paroxysmal noc. dyspnea, edema, light headedness, other - Medication Medications: Active Medications Generic Name Dose Route Start Last Admin Trade Name Freq PRN Reason Stop Dose Admin Atorvastatin Calcium 20 mg 08/08/19 21:00 08/09/19 21:13 Lipitor PO 20 mg HS DEANNA Administration Famotidine 20 mg 08/08/19 21:00 08/10/19 09:40 Pepcid PO 20 mg BID DEANNA Administration Finasteride 5 mg 08/08/19 21:00 08/09/19 21:13 Proscar PO 5 mg HS DEANNA Administration Sodium Chloride 1,000 mls @ 50 mls/hr 08/08/19 12:30 08/10/19 05:58 Normal Saline 0.9% IV 1,000 mls .Q20H DEANNA Administration Levothyroxine Sodium 25 mcg 08/09/19 06:00 08/10/19 05:58 Synthroid PO 25 mcg 0600 DEANNA Administration Losartan Potassium 100 mg 08/09/19 09:00 08/10/19 09:39 Cozaar PO 100 mg DAILY DEANNA Administration Metoprolol Succinate 100 mg 08/08/19 21:00 08/10/19 09:40 Toprol Xl PO 100 mg BID DEANNA Administration Oxybutynin Chloride 10 mg 08/09/19 09:00 08/10/19 09:39 Ditropan Xl PO 10 mg DAILY DEANNA Administration Rivaroxaban 20 mg 08/09/19 09:00 08/10/19 09:39 Xarelto PO 20 mg DAILY DEANNA Administration Sodium Chloride 10 ml 08/09/19 21:00 08/10/19 09:40 Flush - Normal Saline IVF Not Given Q12HR DEANNA Tamsulosin HCl 0.4 mg 08/08/19 21:00 08/10/19 09:40 Flomax PO 0.4 mg BID DEANNA Administration - Exam General Appearance: NAD Neck: supple, no JVD Heart: RRR, no gallops Respiratory: CTAB, no wheezes, no rales, no ronchi Gastrointestinal: soft, non-tender, non-distended, normal bowel sounds Extremities: no edema Psychiatric: normal affect, A&O x 3 Hosp A/P - Plan Afib with RVR CAD s/p stent HTN CKD 2 Obesity BMI 34.7 HLD BPH PLAN: Started on Tikosyn Cont Tele monitoring On Xarelto Cont Toprol XL Cont other meds AM labs DC IVF after this bag
[2019-08-10] MEDS ORDERED: ALPRAZolam 0.25 MG TAB PO PRN (17:10)
[2019-08-10] MEDS: Dofetilide 0.125 MG CAP PO SCH (17:43)
[2019-08-10] MEDS ORDERED: Dofetilide 0.25 MG CAP PO SCH (18:00)
[2019-08-10] MEDS ORDERED: Dofetilide 0.125 MG CAP PO SCH (18:00)
[2019-08-10] MEDS: Atorvastatin Calcium 20 MG TAB PO SCH (20:59)
[2019-08-10] MEDS: Finasteride 5 MG TAB PO SCH (20:59)
[2019-08-11 05:44] LABS: #Lymphocytes 0.4 thou/uL (1.20-3.40); #Monocytes 0.7 thou/uL (0.11-0.59); #Neutrophils 5.2 thou/uL (1.40-6.50); %Basophils 0.1 % (0.0-1.0); %Eosinophils 0.3 % (0.0-10.0); %Lymphocytes 6.5 % (21.0-51.0); %Monocytes 11.3 % (0.0-10.0); %Neutrophils 81.8 % (42.0-75.0); Hemoglobin 13.6 g/dL (14.0-18.0); Mean Corpuscular HGB CONC 33.8 g/dL (32.0-36.0); Mean Corpuscular Hemoglobin 31.6 pg (27.0-31.0); Mean Corpuscular Volume 93.4 fL (78.0-98.0); Mean Platelet Volume 8.1 fL (7.4-10.4); Platelet Count 121 thou/uL (130-400); RBC Distribution Width 12.1 % (11.5-14.5); Red Blood Cell (RBC) Count 4.29 mill/uL (4.70-6.10); White Blood Cell (WBC) Count 6.4 thou/uL (4.8-10.8)
[2019-08-11 05:58] LABS: Anion Gap 13 mmol/L (10-20); BUN (Urea Nitrogen) 13 mg/dL (8.4-25.7); Calc. Creatinine Clearance 88 mL/min (70-130); Calcium 8.4 mg/dL (7.8-10.44); Carbon Dioxide 18 mmol/L (23-31); Chloride 108 mmol/L (98-107); Estimated GFR-MDRD 61; Glucose 108 mg/dL (80-115); Magnesium 2.1 mg/dL (1.6-2.6); Potassium 3.7 mmol/L (3.5-5.1); Sodium 135 mmol/L (136-145)
[2019-08-11] MEDS: Levothyroxine Sodium 25 MCG TAB PO SCH (06:04)
[2019-08-11] MEDS: Dofetilide 0.125 MG CAP PO SCH ×2 (06:05→17:54)
[2019-08-11] MEDS: Rivaroxaban 10 MG TAB PO SCH (08:17)
[2019-08-11] MEDS: Tamsulosin HCl 0.4 MG CAP PO SCH (08:17)
[2019-08-11] MEDS: Acetaminophen 325 MG TAB PO PRN ×2 (08:17→22:12)
[2019-08-11] MEDS: Losartan 25 MG TAB PO SCH (08:18)
[2019-08-11] MEDS: Oxybutynin ER 5 MG TAB PO SCH (08:18)
[2019-08-11] MEDS: Famotidine 20 MG TAB PO SCH ×2 (08:18→22:11)
--- NOTE | 2019-08-11 11:56 | PDOC.HOSPP ---
- Subjective Encounter Date: 08/11/19 Encounter Time: 11:56 Subjective: Patient seen and examined for Afib. Fever +. Dry cough. One episode of diarrhea. No other complaints. No overnight events - Objective Vital Signs & Weight: Vital Signs (12 hours) Temp Pulse Resp BP BP Pulse Ox 08/11/19 08:00 95 08/11/19 07:39 102.7 F H 82 16 167/83 H 95 08/11/19 03:31 100.3 F H 87 18 138/65 92 L Weight Weight 228 lb 4.8 oz I&O: 08/10/19 08/11/19 08/12/19 06:59 06:59 06:59 Intake Total 2275 2330 240 Output Total 1200 1845 Balance 1075 485 240 Result Diagrams: 08/11/19 05:33 08/11/19 05:33 EKG Reviewed by me: Yes (SR) Hospitalist ROS - Review of Systems Respiratory: reports: cough, dry. denies: shortness of breath, hemoptysis, SOB with excertion, pleuritic pain, sputum, wheezing, other Cardiovascular: denies: chest pain, palpitations, orthopnea, paroxysmal noc. dyspnea, edema, light headedness, other - Medication Medications: Active Medications Generic Name Dose Route Start Last Admin Trade Name Freq PRN Reason Stop Dose Admin Acetaminophen 650 mg 08/08/19 12:30 08/11/19 08:17 Tylenol PO 650 mg Q4H PRN Administration Headache/Fever/Mild Pain (1-3) Atorvastatin Calcium 20 mg 08/08/19 21:00 08/10/19 20:59 Lipitor PO 20 mg HS DEANNA Administration Dofetilide 0.5 mg 08/10/19 18:00 08/11/19 06:05 Tikosyn PO 0.5 mg 0600,1800 DEANNA Administration Famotidine 20 mg 08/08/19 21:00 08/11/19 08:18 Pepcid PO 20 mg BID DEANNA Administration Finasteride 5 mg 08/08/19 21:00 08/10/19 20:59 Proscar PO 5 mg HS DEANNA Administration Levothyroxine Sodium 25 mcg 08/09/19 06:00 08/11/19 06:04 Synthroid PO 25 mcg 0600 DEANNA Administration Losartan Potassium 100 mg 08/09/19 09:00 08/11/19 08:18 Cozaar PO 100 mg DAILY DEANNA Administration Metoprolol Succinate 100 mg 08/08/19 21:00 08/11/19 08:17 Toprol Xl PO 100 mg BID DEANNA Administration Oxybutynin Chloride 10 mg 08/09/19 09:00 08/11/19 08:18 Ditropan Xl PO 10 mg DAILY DEANNA Administration Rivaroxaban 20 mg 08/09/19 09:00 08/11/19 08:17 Xarelto PO 20 mg DAILY DEANNA Administration Sodium Chloride 10 ml 08/09/19 21:00 08/11/19 08:19 Flush - Normal Saline IVF 10 ml Q12HR DEANNA Administration Tamsulosin HCl 0.4 mg 08/11/19 09:00 08/11/19 08:17 Flomax PO 0.4 mg DAILY DEANNA Administration - Exam General Appearance: NAD Neck: supple, no JVD Heart: RRR, no gallops, no rubs Respiratory: CTAB, no rales Gastrointestinal: soft, non-tender, normal bowel sounds Extremities: no edema Hosp A/P - Plan Afib with RVR - in SR Fever ?etio Chronic anticoag with Xarelto CAD s/p stent HTN CKD 2 Obesity BMI 34.7 HLD BPH PLAN: CXR today Consult ID on Tikosyn Cont Toprol XL Cont other meds AM labs
--- NOTE | 2019-08-11 13:16 | RAD ---
TWO VIEWS CHEST: DATE: 08/11/2019. COMPARISON: 08/07/2019. HISTORY: Fever. FINDINGS: No pneumothorax or pleural fluid. No focal consolidation or alveolar edema. Heart and mediastinal c ontours are unremarkable. There is mild elevation of the left hemidiaphragm. IMPRESSION: No acute finding - stable appearance of the chest. POS: [facility]
[2019-08-11] MEDS: cefTRIAXone\\ROCEPHIN 1 GM in Sodium Chloride 0.9% 100 ML IVPB SCH (17:55)
--- NOTE | 2019-08-11 20:29 | PDOC.CPN ---
- Subjective Date: 08/11/19 Time: 11:00 Interval history: EP PROGRESS NOTE: Follow up for atrial fibrillation/ flutter and tikosyn loading. Had chills yesterday and fever of 102 overnight into the AM. Also an episode of diarrhea. Still noticing occasional heart racing & palpitations but less frequently since starting tikosyn. - Review of Systems General: reports: fever/chills, night sweats, fatigue Respiratory: reports: cough. denies: shortness of breath Cardiovascular: reports: palpitation, orthopnea. denies: chest pain, edema Gastrointestinal: reports: diarrhea. denies: nausea, vomiting Musculoskeletal: denies: pain Neurological: denies: syncope - Objective Allergies/Adverse Reactions: Allergies Allergy/AdvReac Type Severity Reaction Status Date / Time No Known Allergies Allergy Verified 06/25/19 10:10 Visit Medications: Current Medications Acetaminophen (Tylenol) 650 mg PO Q4H PRN PRN Reason: Headache/Fever/Mild Pain (1-3) Last Admin: 08/11/19 08:17 Dose: 650 mg Alprazolam (Xanax) 0.25 mg PO BIDPRN PRN PRN Reason: Anxiety Stop: 08/12/19 17:11 Atorvastatin Calcium (Lipitor) 20 mg PO HS [facility] Last Admin: 08/10/19 20:59 Dose: 20 mg Bisacodyl (Dulcolax) 10 mg [place] DAILYPRN PRN PRN Reason: Constipation Dofetilide (Tikosyn) 0.5 mg PO 0600,1800 [facility] Last Admin: 08/11/19 17:54 Dose: 0.5 mg Doxycycline Hyclate (Vibramycin) 100 mg PO BID DEANNA Famotidine (Pepcid) 20 mg PO BID [facility] Last Admin: 08/11/19 08:18 Dose: 20 mg Finasteride (Proscar) 5 mg PO HS [facility] Last Admin: 08/10/19 20:59 Dose: 5 mg Guaifenesin/Dextromethorphan (Robitussin Dm) 15 ml PO Q4H PRN PRN Reason: Cough Ceftriaxone Sodium 1 gm/ (Sodium Chloride) 100 mls @ 200 mls/hr IVPB Q24HR [facility] Last Admin: 08/11/19 17:55 Dose: 100 mls Levothyroxine Sodium (Synthroid) 25 mcg PO 0600 [facility] Last Admin: 08/11/19 06:04 Dose: 25 mcg Losartan Potassium (Cozaar) 100 mg PO DAILY [facility] Last Admin: 08/11/19 08:18 Dose: 100 mg Metoprolol Succinate (Toprol Xl) 100 mg PO BID [facility] Last Admin: 08/11/19 08:17 Dose: 100 mg Oxybutynin Chloride (Ditropan Xl) 10 mg PO DAILY [facility] Last Admin: 08/11/19 08:18 Dose: 10 mg Rivaroxaban (Xarelto) 20 mg PO DAILY [facility] Last Admin: 08/11/19 08:17 Dose: 20 mg Senna/Docusate Sodium (Senokot S) 2 tab PO BIDPRN PRN PRN Reason: Constipation Sodium Chloride (Flush - Normal Saline) 10 ml IVF Q12HR [facility] Last Admin: 08/11/19 08:19 Dose: 10 ml Sodium Chloride (Flush - Normal Saline) 10 ml IVF PRN PRN PRN Reason: Saline Flush Tamsulosin HCl (Flomax) 0.4 mg PO DAILY [facility] Last Admin: 08/11/19 08:17 Dose: 0.4 mg Vital Signs & Weight: Vital Signs Temp Pulse Resp BP Pulse Ox 08/11/19 16:00 99.7 F H 119 H 18 123/67 96 08/11/19 11:20 98.0 F 74 16 110/67 96 Weight 228 lb 4.8 oz - Physical Exam General: alert & oriented x3 HEENT: mucus membranes moist, normocephaly Neck: supple neck, midline trachea, no JVD/HJR Cardiac: regular rate and rhythm Lungs: clear to auscultation, normal breath sounds Neuro: grossly intact Abdomen: active bowel sounds - Labs Result Diagrams: 08/11/19 05:33 08/11/19 05:33 Troponin/CKMB Troponin I Less than 0.010 ng/mL (< 0.028) 08/08/19 05:24 - Assessment/Plan Assessment/Plan: 1. Persistent atrial arrhythmias -s/p prior ablations - late recurrence, redo ablation to be scheduled. For now Tikosyn loading for arrhythmia suppression 2. CHADS2-VASC: 3 (vascular disease, HTN, and age) -xarelto QTc 398msec on admission. Currently 463 after 2nd dose of tikosyn, which is ~15 % increase. Will continue 500mcg BID for now. If further increases are seen or if QTc >500msec, will need a dose reduction.
[2019-08-11] MEDS: Finasteride 5 MG TAB PO SCH (22:11)
[2019-08-11] MEDS: Doxycycline 100 MG CAP PO SCH (22:11)
[2019-08-11] MEDS: Atorvastatin Calcium 20 MG TAB PO SCH (22:11)
[2019-08-12 05:29] LABS: #Lymphocytes 0.7 thou/uL (1.20-3.40); #Monocytes 0.5 thou/uL (0.11-0.59); #Neutrophils 2.2 thou/uL (1.40-6.50); %Basophils 0.5 % (0.0-1.0); %Eosinophils 0.3 % (0.0-10.0); %Lymphocytes 20.1 % (21.0-51.0); %Monocytes 13.9 % (0.0-10.0); %Neutrophils 65.3 % (42.0-75.0); Hemoglobin 13.7 g/dL (14.0-18.0); Mean Corpuscular HGB CONC 33.9 g/dL (32.0-36.0); Mean Corpuscular Hemoglobin 31.9 pg (27.0-31.0); Mean Platelet Volume 7.8 fL (7.4-10.4); Platelet Count 121 thou/uL (130-400); RBC Distribution Width 12.2 % (11.5-14.5); Red Blood Cell (RBC) Count 4.28 mill/uL (4.70-6.10); White Blood Cell (WBC) Count 3.3 thou/uL (4.8-10.8)
[2019-08-12] MEDS: Levothyroxine Sodium 25 MCG TAB PO SCH (05:39)
[2019-08-12] MEDS: Dofetilide 0.125 MG CAP PO SCH ×2 (05:39→18:03)
[2019-08-12 05:50] LABS: ALT (SGPT) 12 U/L (8-55); AST (SGOT) 21 U/L (5-34); Albumin 3.4 g/dL (3.4-4.8); Alkaline Phosphatase 118 U/L (40-110); Anion Gap 12 mmol/L (10-20); BUN (Urea Nitrogen) 15 mg/dL (8.4-25.7); Bilirubin, Total 0.8 mg/dL (0.2-1.2); Calc. Creatinine Clearance 82 mL/min (70-130); Calcium 8.5 mg/dL (7.8-10.44); Carbon Dioxide 23 mmol/L (23-31); Chloride 105 mmol/L (98-107); Estimated GFR-MDRD 56; Globulin 2.8 g/dL (2.4-3.5); Glucose 101 mg/dL (80-115); Potassium 3.6 mmol/L (3.5-5.1); Protein, Total 6.2 g/dL (5.8-8.1); Sodium 136 mmol/L (136-145)
--- NOTE | 2019-08-12 07:23 | CON ---
DATE OF CONSULTATION: 08/11/2019 REASON FOR CONSULTATION: Fever. HISTORY OF PRESENT ILLNESS: This is a 69-year-old with history of atrial fibrillation and hypertension, who came in on August 07 because of dizziness and palpitations with onset the night before admission. He checked his BP at home and it was a little bit on the low side and heart rate was measured at 150. The patient is on Xarelto, metoprolol and Lasix, but had not been taken Lasix in 3 weeks before. Did not have any headaches. No cough. No fever, chills or vomiting. No abdominal pain or diarrhea. No genitourinary symptoms. On arrival, his BP was 140/100, pulse was 159, respirations were 20, temperature was 97.6, O2 saturation was 96, did not appear in distress, irregular rate and rhythm. Other findings in the exam were normal. Initial laboratory data; white cell count 6.1 with a normal differential except for mild monocytosis. Chemistry with creatinine of 1.64, alkaline phosphatase 163. Transaminases and bilirubin normal. Albumin 4.3. Urinalysis was normal. Consultation with Cardiology was obtained 2 days ago. The plan was to proceed with ablation under Dr. Jett's supervision. On August 10, he started noticing chills and then fever became obvious on the . He also has noticed unremitting cough without sputum production. No headaches. No visual symptoms. No chest pain. No earache or nasal symptoms. No abdominal pain. Other 10-point review of systems are negative. PAST MEDICAL HISTORY: AFib, hypothyroidism, hypertension, dyslipidemia, BPH, skin cancer, prior ablations and cardioversions in the past. ALLERGIES: NONE. 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 He lives in the area by himself. He has a daughter. Former smoker, quit in . Does not drink. FAMILY HISTORY: Hypertension, colon cancer, and dementia. CURRENT MEDICATIONS: 1. Tylenol. 2. Xanax. 3. Lipitor. 4. Dulcolax. 5. Tikosyn. 6. Pepcid. 7. Proscar. 8. Robitussin. 9. Synthroid. 10. Cozaar. 11. Toprol. 12. Xarelto. 13. Senokot. PHYSICAL EXAMINATION: VITAL SIGNS: T-max 102.7 recently. Other vital signs are normal. Heart rate ranges from 83 to 128. SKIN: Normal. Peripheral IV access appears normal. The patient is voiding in the urinal. No lymphadenopathy. HEENT: Ocular movements conjugate. Oral cavity normal. NECK: Supple. LUNGS: Symmetric. Clear breath sounds. HEART: S1 and S2. Regular rate. No S3 or S4. ABDOMEN: Soft, not distended or tender. No organomegaly. No bladder distention. MUSCULOSKELETAL: No joint inflammatory activity. No edema. NEUROLOGIC: He moves all extremities equally. Cognitive function appears to be intact. Speech is normal. Normal recollection. LABORATORY DATA: The latest white cell count is 6.4, hemoglobin 13.6, platelets 121, 81% neutrophils. INR 1.8. Sodium 135 and creatinine 1.18. Urinalysis was essentially normal. Two sets of blood cultures from the 19th, no growth at 48 hours. Urine culture, no growth at 36 hours. DIAGNOSTIC DATA: Chest x-ray with no acute findings. ASSESSMENT: 1. Atrial fibrillation. 2. New onset of fever, which developed after admission 2 days into the hospital stay. 3. Cough. DISCUSSION: Differential diagnosis includes a viral respiratory tract infection versus bacterial infection. We will submit respiratory virus PCR. Start broad empiric coverage with Rocephin and azithromycin. Job ID: [id number]
[2019-08-12] MEDS: Tamsulosin HCl 0.4 MG CAP PO SCH (09:12)
[2019-08-12] MEDS: Oxybutynin ER 5 MG TAB PO SCH (09:12)
[2019-08-12] MEDS: Doxycycline 100 MG CAP PO SCH ×2 (09:12→21:37)
[2019-08-12] MEDS: Rivaroxaban 10 MG TAB PO SCH (09:12)
[2019-08-12] MEDS: Famotidine 20 MG TAB PO SCH ×2 (09:12→21:37)
[2019-08-12] MEDS: Losartan 25 MG TAB PO SCH (09:13)
--- NOTE | 2019-08-12 13:20 | PDOC.HOSPP ---
- Subjective Encounter Date: 08/12/19 Encounter Time: 08:30 Subjective: Patient seen and examined. No new complaints. No overnight events - Objective Vital Signs & Weight: Vital Signs (12 hours) Temp Pulse Resp BP BP Pulse Ox 08/12/19 11:55 98.5 F 69 16 143/73 H 97 08/12/19 09:09 98.6 F 95 16 124/76 94 L 08/12/19 04:00 98.0 F 65 16 133/71 92 L Weight Weight 228 lb 4.8 oz I&O: 08/11/19 08/12/19 08/13/19 06:59 06:59 06:59 Intake Total 2330 1360 Output Total 1665 2425 Balance 485 -1065 Result Diagrams: 08/12/19 05:09 08/12/19 05:09 EKG Reviewed by me: Yes Hospitalist ROS - Review of Systems Eyes: denies: pain, vision change, conjunctivae inflammation, eyelid inflammation, redness, other ENT: denies: ear pain, ear discharge, nose pain, nose discharge, nose congestion , mouth pain, mouth swelling, throat pain, throat swelling, other Respiratory: denies: cough, dry, shortness of breath, hemoptysis, SOB with excertion, pleuritic pain, sputum, wheezing, other Cardiovascular: denies: chest pain, palpitations, orthopnea, paroxysmal noc. dyspnea, edema, light headedness, other Gastrointestinal: denies: nausea, vomiting, abdominal pain, diarrhea, constipation, melena, hematochezia, other Genitourinary: denies: dysuria, frequency, incontinence, hematuria, retention, other Musculoskeletal: denies: neck pain, shoulder pain, arm pain, back pain, hand pain, leg pain, foot pain, other Skin: denies: rash, lesions, lety, bruising, other - Medication Medications: Active Medications Generic Name Dose Route Start Last Admin Trade Name Freq PRN Reason Stop Dose Admin Acetaminophen 650 mg 08/08/19 12:30 08/11/19 22:12 Tylenol PO 650 mg Q4H PRN Administration Headache/Fever/Mild Pain (1-3) Atorvastatin Calcium 20 mg 08/08/19 21:00 08/11/19 22:11 Lipitor PO 20 mg HS DEANNA Administration Dofetilide 0.5 mg 08/10/19 18:00 08/12/19 05:39 Tikosyn PO 0.5 mg 0600,1800 DEANNA Administration Doxycycline Hyclate 100 mg 08/11/19 21:00 08/12/19 09:12 Vibramycin PO 100 mg BID DEANNA Administration Famotidine 20 mg 08/08/19 21:00 08/12/19 09:12 Pepcid PO 20 mg BID DEANNA Administration Finasteride 5 mg 08/08/19 21:00 08/11/19 22:11 Proscar PO 5 mg HS DEANNA Administration Ceftriaxone Sodium 1 gm/ 100 mls @ 200 mls/hr 08/11/19 18:00 08/11/19 17:55 Sodium Chloride IVPB 100 mls Q24HR DEANNA Administration Levothyroxine Sodium 25 mcg 08/09/19 06:00 08/12/19 05:39 Synthroid PO 25 mcg 0600 DEANNA Administration Losartan Potassium 100 mg 08/09/19 09:00 08/12/19 09:13 Cozaar PO 100 mg DAILY DEANNA Administration Metoprolol Succinate 100 mg 08/08/19 21:00 08/12/19 09:13 Toprol Xl PO 100 mg BID DEANNA Administration Oxybutynin Chloride 10 mg 08/09/19 09:00 08/12/19 09:12 Ditropan Xl PO 10 mg DAILY DEANNA Administration Rivaroxaban 20 mg 08/09/19 09:00 08/12/19 09:12 Xarelto PO 20 mg DAILY DEANNA Administration Sodium Chloride 10 ml 08/09/19 21:00 08/12/19 09:13 Flush - Normal Saline IVF 10 ml Q12HR DEANNA Administration Tamsulosin HCl 0.4 mg 08/11/19 09:00 08/12/19 09:12 Flomax PO 0.4 mg DAILY DEANNA Administration - Exam General Appearance: NAD, awake alert Eye: PERRL, anicteric sclera ENT: normocephalic atraumatic, no oropharyngeal lesions Neck: supple, symmetric, no JVD, no thyromegaly Heart: RRR, no murmur, no gallops, no rubs Respiratory: CTAB, no wheezes, no rales, no ronchi, normal chest expansion Gastrointestinal: soft, non-tender, non-distended, normal bowel sounds Extremities: no cyanosis, no clubbing, no edema Skin: normal turgor, no lesions, no rashes Neurological: cranial nerve grossly intact, normal sensation to touch, no focal deficits Musculoskeletal: normal tone, normal strength, no muscle wasting Psychiatric: normal affect, normal behavior, A&O x 3 Hosp A/P (1) Atrial fibrillation with RVR Code(s): I48.91 - UNSPECIFIED ATRIAL FIBRILLATION Status: Acute (2) CAD (coronary artery disease) Code(s): I25.10 - ATHSCL HEART DISEASE OF [place] CORONARY ARTERY W/O ANG PCTRS Status: Chronic Qualifiers: Coronary Disease-Associated Artery/Lesion type: [place] artery [place] vs. transplanted heart: [place] heart Associated angina: without angina Qualified Code(s): I25.10 - Atherosclerotic heart disease of [place] coronary artery without angina pectoris (3) Chronic anticoagulation Code(s): Z79.01 - LONGTERM (CURRENT) USE OF ANTICOAGULANTS Status: Chronic (4) HLD (hyperlipidemia) Code(s): E78.5 - HYPERLIPIDEMIA, UNSPECIFIED Status: Chronic Qualifiers: Hyperlipidemia type: unspecified Qualified Code(s): E78.5 - Hyperlipidemia , unspecified (5) HTN (hypertension) Code(s): I10 - ESSENTIAL (PRIMARY) HYPERTENSION Status: Chronic Qualifiers: Hypertension type: essential hypertension Qualified Code(s): I10 - Essential (primary) hypertension (6) Hypothyroid Code(s): E03.9 - HYPOTHYROIDISM, UNSPECIFIED Status: Chronic Qualifiers: Hypothyroidism type: unspecified Qualified Code(s): E03.9 - Hypothyroidism , unspecified - Plan old records reviewed/req, continue antibiotics Afib with RVR - in SR Fever ?etio Chronic anticoag with Xarelto CAD s/p stent HTN CKD 2 Obesity BMI 34.7 HLD BPH 08/12/19 continue rocephin and doxy fever resolved ? viral today qTc 527, will defer to EP about dose of Tikosyn tomorrow would be 6th dose of tikosyn and then discharge
--- NOTE | 2019-08-12 16:48 | PDOC.CPN ---
- Subjective Date: 08/12/19 Time: 16:47 Interval history: EP PROGRESS NOTE: Follow up for atrial fibrillation/ flutter and tikosyn loading. No further fever, chills, or diarrhea. Still noticing occasional heart racing & palpitations but less frequently since starting tikosyn. - Review of Systems General: denies: fever/chills, weight/appetite/sleep changes, night sweats, fatigue Respiratory: denies: cough, congestion, shortness of breath, exercise intolerance Cardiovascular: denies: chest pain, palpitation, edema, paroxysmal nocturnal dyspnea, orthopnea Gastrointestinal: denies: nausea, vomiting, diarrhea, constipation, abd pain, GI bleeding Musculoskeletal: denies: pain, tenderness, stiffness, swelling, arthritis/ arthralgias Neurological: denies: numbness, syncope, seizure, weakness - Objective Allergies/Adverse Reactions: Allergies Allergy/AdvReac Type Severity Reaction Status Date / Time No Known Allergies Allergy Verified 06/25/19 10:10 Visit Medications: Current Medications Acetaminophen (Tylenol) 650 mg PO Q4H PRN PRN Reason: Headache/Fever/Mild Pain (1-3) Last Admin: 08/11/19 22:12 Dose: 650 mg Alprazolam (Xanax) 0.25 mg PO BIDPRN PRN PRN Reason: Anxiety Stop: 08/12/19 17:11 Atorvastatin Calcium (Lipitor) 20 mg PO HS [facility] Last Admin: 08/11/19 22:11 Dose: 20 mg Bisacodyl (Dulcolax) 10 mg [place] DAILYPRN PRN PRN Reason: Constipation Dofetilide (Tikosyn) 0.5 mg PO 0600,1800 [facility] Last Admin: 08/12/19 05:39 Dose: 0.5 mg Doxycycline Hyclate (Vibramycin) 100 mg PO BID [facility] Last Admin: 08/12/19 09:12 Dose: 100 mg Famotidine (Pepcid) 20 mg PO BID [facility] Last Admin: 08/12/19 09:12 Dose: 20 mg Finasteride (Proscar) 5 mg PO HS [facility] Last Admin: 08/11/19 22:11 Dose: 5 mg Guaifenesin/Dextromethorphan (Robitussin Dm) 15 ml PO Q4H PRN PRN Reason: Cough Ceftriaxone Sodium 1 gm/ (Sodium Chloride) 100 mls @ 200 mls/hr IVPB Q24HR [facility] Last Admin: 08/11/19 17:55 Dose: 100 mls Levothyroxine Sodium (Synthroid) 25 mcg PO 0600 [facility] Last Admin: 08/12/19 05:39 Dose: 25 mcg Losartan Potassium (Cozaar) 100 mg PO DAILY [facility] Last Admin: 08/12/19 09:13 Dose: 100 mg Metoprolol Succinate (Toprol Xl) 100 mg PO BID [facility] Last Admin: 08/12/19 09:13 Dose: 100 mg Oxybutynin Chloride (Ditropan Xl) 10 mg PO DAILY [facility] Last Admin: 08/12/19 09:12 Dose: 10 mg Rivaroxaban (Xarelto) 20 mg PO DAILY [facility] Last Admin: 08/12/19 09:12 Dose: 20 mg Senna/Docusate Sodium (Senokot S) 2 tab PO BIDPRN PRN PRN Reason: Constipation Sodium Chloride (Flush - Normal Saline) 10 ml IVF Q12HR [facility] Last Admin: 08/12/19 09:13 Dose: 10 ml Sodium Chloride (Flush - Normal Saline) 10 ml IVF PRN PRN PRN Reason: Saline Flush Tamsulosin HCl (Flomax) 0.4 mg PO DAILY [facility] Last Admin: 08/12/19 09:12 Dose: 0.4 mg Vital Signs & Weight: Vital Signs Temp Pulse Resp BP BP Pulse Ox 08/12/19 15:43 98.8 F 72 16 132/64 95 08/12/19 11:55 98.5 F 69 16 143/73 H 97 08/12/19 09:09 98.6 F 95 16 124/76 94 L Weight 228 lb 4.8 oz - Physical Exam General: alert & oriented x3, appears well, no apparent distress HEENT: mucus membranes moist Neck: supple neck, midline trachea, no JVD/HJR, no masses, no bruit, no lymphadenopathy, no thromegaly Cardiac: regular rate and rhythm, no murmur, regular rate, regular rhythm Lungs: clear to auscultation, normal breath sounds, normal exam, no wheeze, rales, rhonchi - Labs Result Diagrams: 08/12/19 05:09 08/12/19 05:09 Troponin/CKMB Troponin I Less than 0.010 ng/mL (< 0.028) 08/08/19 05:24 - Telemetry Sinus rhythms and dysrhythmias: sinus rhythm (paroxysmal atrial flutter at 120- 130bpm) - Assessment/Plan Assessment/Plan: 1. Persistent atrial arrhythmias -s/p prior ablations - late recurrence, redo ablation to be scheduled. For now Tikosyn loading for arrhythmia suppression 2. CHADS2-VASC: 3 (vascular disease, HTN, and age) -xarelto QTc 398msec on admission. Currently 499msec after 4th dose of tikosyn. Will continue 500mcg BID for now. Anticipate DC AM after EKG if cleared medically as well.
[2019-08-12] MEDS: cefTRIAXone\\ROCEPHIN 1 GM in Sodium Chloride 0.9% 100 ML IVPB SCH (18:03)
[2019-08-12] MEDS: Finasteride 5 MG TAB PO SCH (21:37)
[2019-08-12] MEDS: Atorvastatin Calcium 20 MG TAB PO SCH (21:37)
[2019-08-13] MEDS: Levothyroxine Sodium 25 MCG TAB PO SCH (06:00)
[2019-08-13] MEDS: Dofetilide 0.125 MG CAP PO SCH (06:00)
--- NOTE | 2019-08-13 08:27 | PDOC.CPN ---
- Subjective Date: 08/13/19 Time: 08:00 Interval history: EP PROGRESS NOTE: palpitations this AM before tikosyn. Diarrhea again this AM but without fever or chills. Now feels tired. + DRY MOUTH - Review of Systems General: reports: fatigue. denies: fever/chills, weight/appetite/sleep changes , night sweats Respiratory: reports: cough. denies: congestion, shortness of breath, exercise intolerance Cardiovascular: reports: palpitation. denies: chest pain, edema, paroxysmal nocturnal dyspnea, orthopnea Gastrointestinal: reports: diarrhea. denies: nausea, vomiting, constipation, abd pain, GI bleeding Musculoskeletal: denies: pain, tenderness, stiffness, swelling, arthritis/ arthralgias Neurological: denies: syncope, weakness - Objective Allergies/Adverse Reactions: Allergies Allergy/AdvReac Type Severity Reaction Status Date / Time No Known Allergies Allergy Verified 06/25/19 10:10 Visit Medications: Current Medications Acetaminophen (Tylenol) 650 mg PO Q4H PRN PRN Reason: Headache/Fever/Mild Pain (1-3) Last Admin: 08/11/19 22:12 Dose: 650 mg Atorvastatin Calcium (Lipitor) 20 mg PO HS [facility] Last Admin: 08/12/19 21:37 Dose: 20 mg Bisacodyl (Dulcolax) 10 mg [place] DAILYPRN PRN PRN Reason: Constipation Dofetilide (Tikosyn) 0.5 mg PO 0600,1800 [facility] Last Admin: 08/13/19 06:00 Dose: 0.5 mg Doxycycline Hyclate (Vibramycin) 100 mg PO BID [facility] Last Admin: 08/12/19 21:37 Dose: 100 mg Famotidine (Pepcid) 20 mg PO BID [facility] Last Admin: 08/12/19 21:37 Dose: 20 mg Finasteride (Proscar) 5 mg PO HS [facility] Last Admin: 08/12/19 21:37 Dose: 5 mg Guaifenesin/Dextromethorphan (Robitussin Dm) 15 ml PO Q4H PRN PRN Reason: Cough Ceftriaxone Sodium 1 gm/ (Sodium Chloride) 100 mls @ 200 mls/hr IVPB Q24HR [facility] Last Admin: 08/12/19 18:03 Dose: 100 mls Levothyroxine Sodium (Synthroid) 25 mcg PO 0600 [facility] Last Admin: 08/13/19 06:00 Dose: 25 mcg Losartan Potassium (Cozaar) 100 mg PO DAILY [facility] Last Admin: 08/12/19 09:13 Dose: 100 mg Metoprolol Succinate (Toprol Xl) 100 mg PO BID [facility] Last Admin: 08/12/19 21:37 Dose: 100 mg Oxybutynin Chloride (Ditropan Xl) 10 mg PO DAILY [facility] Last Admin: 08/12/19 09:12 Dose: 10 mg Rivaroxaban (Xarelto) 20 mg PO DAILY [facility] Last Admin: 08/12/19 09:12 Dose: 20 mg Senna/Docusate Sodium (Senokot S) 2 tab PO BIDPRN PRN PRN Reason: Constipation Sodium Chloride (Flush - Normal Saline) 10 ml IVF Q12HR [facility] Last Admin: 08/12/19 21:38 Dose: 10 ml Sodium Chloride (Flush - Normal Saline) 10 ml IVF PRN PRN PRN Reason: Saline Flush Tamsulosin HCl (Flomax) 0.4 mg PO DAILY [facility] Last Admin: 08/12/19 09:12 Dose: 0.4 mg Vital Signs & Weight: Vital Signs Temp Pulse Resp BP Pulse Ox 08/13/19 04:00 99.0 F 54 L 16 127/66 92 L Weight 228 lb 4.8 oz - Physical Exam General: alert & oriented x3 HEENT: mucus membranes moist, normocephaly Neck: supple neck, midline trachea, no JVD/HJR, no masses, no bruit, no lymphadenopathy, no thromegaly Cardiac: regular rate and rhythm, no murmur, regular rate, regular rhythm Lungs: clear to auscultation, normal breath sounds, normal exam, no wheeze, rales, rhonchi Neuro: grossly intact Abdomen: soft, non-tender - Labs Result Diagrams: 08/12/19 05:09 08/12/19 05:09 Troponin/CKMB Troponin I Less than 0.010 ng/mL (< 0.028) 08/08/19 05:24 - Telemetry Sinus rhythms and dysrhythmias: sinus rhythm (frequent paroxysmal atrial flutter. A tach with abberancy seen as well) - Assessment/Plan Assessment/Plan: 1. Persistent atrial arrhythmias -s/p prior ablations - late recurrence, redo ablation to be scheduled. For now Tikosyn loading for arrhythmia suppression 2. CHADS2-VASC: 3 (vascular disease, HTN, and age) -xarelto QTc 398msec on admission. Currently 473 msec after 6th dose of tikosyn. Will continue 500mcg BID. Had runs of AT with abberancy over HS. Continues to have frequent runs of atrial flutter but not sustained. OK for DC by EP. Sent tikosyn RX to [facility] [address]. Plan for ablation in near future.
[2019-08-13] MEDS: Doxycycline 100 MG CAP PO SCH (09:47)
[2019-08-13] MEDS: Rivaroxaban 10 MG TAB PO SCH (09:48)
[2019-08-13] MEDS: Losartan 25 MG TAB PO SCH (09:48)
[2019-08-13] MEDS: Tamsulosin HCl 0.4 MG CAP PO SCH (09:48)
[2019-08-13] MEDS: Oxybutynin ER 5 MG TAB PO SCH (09:48)
[2019-08-13] MEDS: Famotidine 20 MG TAB PO SCH (09:48)
--- NOTE | 2019-08-13 10:18 | PDOC.HOSPP ---
- Subjective Encounter Date: 08/13/19 Encounter Time: 08:00 Subjective: Patient seen and examined. No new complaints. No overnight events - Objective Vital Signs & Weight: Vital Signs (12 hours) Temp Pulse Resp BP BP Pulse Ox 08/13/19 08:01 62 16 137/78 94 L 08/13/19 04:00 99.0 F 54 L 16 127/66 92 L Weight Weight 228 lb 4.8 oz I&O: 08/12/19 08/13/19 08/14/19 06:59 06:59 06:59 Intake Total 1360 940 Output Total 2425 1130 Balance -2693 -868 Result Diagrams: 08/12/19 05:09 08/12/19 05:09 EKG Reviewed by me: Yes Hospitalist ROS - Review of Systems ENT: denies: ear pain, ear discharge, nose pain, nose discharge, nose congestion , mouth pain, mouth swelling, throat pain, throat swelling, other Respiratory: denies: cough, dry, shortness of breath, hemoptysis, SOB with excertion, pleuritic pain, sputum, wheezing, other Cardiovascular: denies: chest pain, palpitations, orthopnea, paroxysmal noc. dyspnea, edema, light headedness, other Gastrointestinal: reports: diarrhea. denies: nausea, vomiting, abdominal pain, constipation, melena, hematochezia, other Genitourinary: denies: dysuria, frequency, incontinence, hematuria, retention, other Musculoskeletal: denies: neck pain, shoulder pain, arm pain, back pain, hand pain, leg pain, foot pain, other Skin: denies: rash, lesions, lety, bruising, other - Medication Medications: Active Medications Generic Name Dose Route Start Last Admin Trade Name Freq PRN Reason Stop Dose Admin Acetaminophen 650 mg 08/08/19 12:30 08/11/19 22:12 Tylenol PO 650 mg Q4H PRN Administration Headache/Fever/Mild Pain (1-3) Atorvastatin Calcium 20 mg 08/08/19 21:00 08/12/19 21:37 Lipitor PO 20 mg HS DEANNA Administration Dofetilide 0.5 mg 08/10/19 18:00 08/13/19 06:00 Tikosyn PO 0.5 mg 0600,1800 DEANNA Administration Doxycycline Hyclate 100 mg 08/11/19 21:00 08/13/19 09:47 Vibramycin PO 100 mg BID DEANNA Administration Famotidine 20 mg 08/08/19 21:00 08/13/19 09:48 Pepcid PO 20 mg BID DEANNA Administration Finasteride 5 mg 08/08/19 21:00 08/12/19 21:37 Proscar PO 5 mg HS DEANNA Administration Ceftriaxone Sodium 1 gm/ 100 mls @ 200 mls/hr 08/11/19 18:00 08/12/19 18:03 Sodium Chloride IVPB 100 mls Q24HR DEANNA Administration Levothyroxine Sodium 25 mcg 08/09/19 06:00 08/13/19 06:00 Synthroid PO 25 mcg 0600 DEANNA Administration Losartan Potassium 100 mg 08/09/19 09:00 08/13/19 09:48 Cozaar PO 100 mg DAILY DEANNA Administration Metoprolol Succinate 100 mg 08/08/19 21:00 08/13/19 09:48 Toprol Xl PO 100 mg BID DEANNA Administration Oxybutynin Chloride 10 mg 08/09/19 09:00 08/13/19 09:48 Ditropan Xl PO 10 mg DAILY DEANNA Administration Rivaroxaban 20 mg 08/09/19 09:00 08/13/19 09:48 Xarelto PO 20 mg DAILY DEANNA Administration Sodium Chloride 10 ml 08/09/19 21:00 08/13/19 09:48 Flush - Normal Saline IVF 10 ml Q12HR DEANNA Administration Tamsulosin HCl 0.4 mg 08/11/19 09:00 08/13/19 09:48 Flomax PO 0.4 mg DAILY DEANNA Administration - Exam General Appearance: NAD, awake alert Eye: PERRL, anicteric sclera ENT: normocephalic atraumatic, no oropharyngeal lesions Neck: supple, symmetric, no JVD, no thyromegaly Heart: RRR, no murmur, no gallops, no rubs, normal peripheral pulses Respiratory: CTAB, no wheezes, no rales, no ronchi, normal chest expansion Gastrointestinal: soft, non-tender, non-distended, normal bowel sounds Extremities: no cyanosis, no clubbing, no edema Skin: normal turgor, no lesions, no rashes Neurological: cranial nerve grossly intact, no focal deficits Musculoskeletal: normal tone, normal strength Psychiatric: normal affect, normal behavior, A&O x 3 Hosp A/P (1) Atrial fibrillation with RVR Code(s): I48.91 - UNSPECIFIED ATRIAL FIBRILLATION Status: Acute (2) CAD (coronary artery disease) Code(s): I25.10 - ATHSCL HEART DISEASE OF [place] CORONARY ARTERY W/O ANG PCTRS Status: Chronic Qualifiers: Coronary Disease-Associated Artery/Lesion type: [place] artery [place] vs. transplanted heart: teller heart Associated angina: without angina Qualified Code(s): I25.10 - Atherosclerotic heart disease of [place] coronary artery without angina pectoris (3) Chronic anticoagulation Code(s): Z79.01 - RN STARS (CURRENT) USE OF ANTICOAGULANTS Status: Chronic (4) HLD (hyperlipidemia) Code(s): E78.5 - HYPERLIPIDEMIA, UNSPECIFIED Status: Chronic Qualifiers: Hyperlipidemia type: unspecified Qualified Code(s): E78.5 - Hyperlipidemia , unspecified (5) HTN (hypertension) Code(s): I10 - ESSENTIAL (PRIMARY) HYPERTENSION Status: Chronic Qualifiers: Hypertension type: essential hypertension Qualified Code(s): I10 - Essential (primary) hypertension (6) Hypothyroid Code(s): E03.9 - HYPOTHYROIDISM, UNSPECIFIED Status: Chronic Qualifiers: Hypothyroidism type: unspecified Qualified Code(s): E03.9 - Hypothyroidism , unspecified - Plan old records reviewed/req, continue antibiotics Afib with RVR - in SR Fever ?etio Chronic anticoag with Xarelto CAD s/p stent HTN CKD 2 Obesity BMI 34.7 HLD BPH 08/12/19 continue rocephin and doxy fever resolved ? viral today qTc 527, will defer to EP about dose of Tikosyn tomorrow would be 6th dose of tikosyn and then discharge 08/13/19 EP cleared him for discharge see discharge summery medication reviewed as above symptomatic treatment
--- NOTE | 2019-08-13 11:35 | DIS ---
DATE OF ADMISSION: 08/08/2019 DATE OF DISCHARGE: 08/13/2019 PRIMARY CARE PHYSICIAN: Dr. Keven Liu. DISCHARGE DISPOSITION: Home. PRIMARY DISCHARGE DIAGNOSES: 1. Atrial fibrillation with rapid ventricular response. 2. Fever, likely due to respiratory tract infection. SECONDARY DISCHARGE DIAGNOSES: Hypertension, dyslipidemia, benign enlargement of prostate, chronic anticoagulation with Xarelto, paroxysmal atrial fibrillation, hypothyroidism. PRIMARY PROCEDURE/OPERATION: None. RADIOLOGICAL INVESTIGATION: Chest x-ray was normal. Echocardiography showed normal EF. SIGNIFICANT LABORATORY DATA: WBC 3.3, hemoglobin 13.7, platelet 121. INR 1.8. Sodium 136, creatinine 1.27. LFT normal. Cardiac enzyme negative. Urinalysis normal. Blood culture negative. Urine culture negative. Respiratory virus panel came back negative. DISCHARGE MEDICATIONS: 1. Doxycycline 100 mg b.i.d. for 5 days. 2. Tikosyn 500 mg p.o. b.i.d. 3. Losartan 100 mg daily. 4. Toprol-XL 100 mg b.i.d. 5. Lipitor 20 mg p.o. at bedtime. 6. Proscar 5 mg p.o. daily. 7. Lasix 40 mg daily. 8. Ditropan ER 10 mg daily. 9. Potassium p.r.n. 10. Xarelto 20 mg daily. 11. Flomax 0.4 mg p.o. daily. CONTRAINDICATION: None. CODE STATUS: Full code. 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 Brennan was Cardiology following. Dr. Jett was following while in hospital. Dr. Parra was consulted for fever. TEST RESULTS PENDING ON DISCHARGE: None. ALLERGIES: NO KNOWN DRUG ALLERGIES. DISCHARGE PLAN: Posthospital, the patient has appointment with Dr. Keven Liu in one week. The patient will follow up with Dr. Jett and Dr. Brennan as instructed. HOSPITAL COURSE: A 69-year-old male, who was admitted by Dr. Beasley on August 08, 2019. Please see his H and P for further details. The patient was admitted for atrial fibrillation with RVR. This patient has history of paroxysmal atrial fibrillation and this time admitted for RVR. The patient was hypotensive and his pulse was in 150s. The patient was admitted to telemetry floor and he was treated with Cardizem drip. Cardiology was consulted and they increased Toprol-XL 200 mg b.i.d. Flat Surfacer Jewel was consulted and they started on Tikosyn. The patient was monitored for QT interval for 6 doses and his EKG remained stable. Flat Surfacer Jewel recommended to continue Tikosyn on discharge. Other medication he will continue as per previous. During this admission, we continued losartan as well as Toprol-XL as above. Amlodipine was discontinued. The patient is seen and examined at bedside today. Please see my progress note from today for further details. During hospital course, the patient developed one time fever and that is why Dr. Parra was consulted and we did a chest x-ray, which was unremarkable. Urinalysis normal and the patient's respiratory virus panel is negative. Culture is also negative. While in hospital, he was given Rocephin and doxycycline. On discharge, we finishing doxycycline for another 5 days. The patient is medically stable for discharge today. Job ID: [id number]
[2019-08-13 12:11] VITALS: BP 142/79
[2019-08-13 12:30] VITALS: TEMP 97.9
--- NOTE | 2019-08-13 13:46 | CON ---
DATE OF CONSULTATION: 08/10/2019 REASON FOR CONSULTATION: Atrial fibrillation and atrial flutter. HISTORY OF PRESENT ILLNESS: Mr. You is a pleasant 69-year-old gentleman, known to our practice for a history of extensive and persistent atrial arrhythmias. He has previously undergone PVI with 2nd left atrial ablated procedure performed by Dr. Ashford in 01/2019. His RIPV and LAPW required re-isolation. Left atrial appendage was ablated, but not isolated at that time. His CS also required isolation. He began to experience palpitations a few months ago and we suspected he was having a late recurrence of atrial arrhythmias. He finished wearing a one-week home monitor yesterday, and unfortunately, today, he began to experience elevated heart rates that sustained, causing him to present to the emergency room. He has undergone multiple prior cardioversions and attempted multiple other agents for antiarrhythmic therapy. He cannot afford Multaq. We offered to place in the hospital for Tikosyn loading, but he was waiting for the results of his recent heart monitor. He was admitted for arrhythmia management and medical management. We will take this opportunity to initiate Tikosyn loading. Mr. You is feeling well currently. He will occasionally have some sensation of his heart rate being elevated, but is not horribly symptomatic with it. He will have some dizziness associated. Earlier when his heart rate was extremely elevated at 150 beats per minute, his blood pressure did drop significantly into the 80s/50 range, which prompted him to go to the emergency room. In addition to his atrial fibrillation with RVR, he has been having some nocturia episodes and was feeling quite poorly before coming in to the hospital. REVIEW OF SYSTEMS: A 12-point review of systems is conducted and is negative except that listed above in HPI. PAST MEDICAL HISTORY: 1. Persistent atrial fibrillation and atypical atrial flutter. a. Diagnosed in 2011, previously suppressed with amiodarone. b. Pulmonary venous isolation on 12/09/2017 with redo ablation on 02/03/2019, requiring re-isolation of the posterior wall. Left atrial appendage delayed not isolated. Late recurrence following 2nd ablation. 2. Coronary artery disease with stenting in 2012. 3. Preserved ejection fraction of 60% by echo on 08/16/2017. 4. CHADS-VASc score of 3 for vascular disease, hypertension, and age. 5. Xarelto for chronic anticoagulation. ALLERGIES: NONE. HOME MEDICATIONS: Include; 1. Potassium daily. 2. Ditropan 10 mg daily. 3. Furosemide 40 mg as needed. 4. Finasteride 1 mg daily. 5. Lipitor 20 mg nightly. 6. Norvasc 5 mg daily. 7. Toprol-XL 100 mg p.o. b.i.d. 8. Synthroid 25 mcg daily. 9. Xarelto 20 mg q.p.m. 10. Olmesartan medoxomil 40 mg daily. 11. Flomax 0.4 mg q.a.m. FAMILY HISTORY: Positive for extensive coronary artery disease, otherwise negative for sudden cardiac . SOCIAL HISTORY: Denies alcohol, tobacco, or illicit drug use. Strong family support. OBJECTIVE: VITAL SIGNS: Temperature 97.6, pulse 68, blood pressure 138/78, respirations 17, and 99% oxygenation on room air. GENERAL: The patient is alert and oriented. His speech is clear. His affect is appropriate. He is in no apparent distress at the time of exam. HEENT: He is normocephalic and atraumatic. NECK: Supple without jugular venous distention. Thyroid is nonpalpable. There is no lymphadenopathy. LUNGS: Clear to auscultation bilaterally without wheezes, crackles, or rhonchi. Respirations are even and nonlabored. HEART: Rate is regularly regular, though varying with frequent atrial ectopy and occasional RVR. His PMI is nondisplaced. There is no obvious murmur, rub, or gallop. ABDOMEN: Obese, soft, and nontender with positive bowel sounds. Hepatojugular reflux is negative. EXTREMITIES: Warm and dry to touch without clubbing, cyanosis, or edema. NEUROLOGIC: Grossly intact and nonfocal and his gait was not assessed. DATABASE: EKG shows atrial fibrillation and paroxysmal atypical atrial flutter in and out of sinus rhythm with rates up to 130 beats per minute. IMPRESSION: 1. Recurrent atrial arrhythmias status post 2 prior ablations, most recently in 01/2019, now with paroxysmal atypical flutter. 2. History of coronary artery disease with prior stents with normal ejection fraction. 3. Hypertension. 4. Hyperlipidemia. PLAN AND RECOMMENDATIONS: Mr. You is having late recurrent arrhythmia issues following his ablation earlier this year. We are highly suspicious of this and had recently seen him in clinic. He recently finished wearing monitor. Our plan at that time was to discuss either loading with Tikosyn for arrhythmia management and highly encouraged him to have a redo ablation. He is in favor of Tikosyn loading today. We will recommend admitting him for an inpatient for serial EKGs while he is undergoing Tikosyn loading and continue oral anticoagulation. Ultimately though he will require redo ablation. Thank you for allowing me to participate in the care of this patient. Job ID: [id number]
--- NOTE | 2019-08-14 07:44 | PQF ---
[employer] Crystal Reports Winform ViewerLESLY ROJO LAURIE LEAL MD [id number] [address] [place] [address] [id number] CLINICAL DOCUMENTATION CLARIFICATION FORM: POST DISCHARGE Addendum to original discharge summary date: ____ Late entry note date: __ DATE: 08/14/2019 ATTN:LAURIE LEAL MD Please exercise your independent, professional judgment in responding to the clarification form. Clinical indicators are provided on the bottom of this form for your review Please check appropriate box(s): HEART FAILURE: A. TYPE: [ ] Systolic / HFrEF [ x ] Diastolic / HFpEF [ ] Combined Systolic / Diastolic B. ACUITY [ ] Acute [ ] Acute on Chronic [ x ] Chronic [ ] Other diagnosis [ ] Unable to determine In addition, please specify: Present on Admission (POA): [ x ] Yes [ ] No [ ] Unable to determine For continuity of documentation, please document condition throughout progress notes and discharge summary. Thank You. CLINICAL INDICATORS - SIGNS / SYMPTOMS / LABS - BNP: 245.2H- Laboratory, 08/07, - LVEF estimated at 50-55%- Echocardiogram, 08/09 - Mild mitral regurgitation is present - Echocardiogram, 08/09 - Mild tricuspid regurgitation- Echocardiogram, 08/09 - BP:140/110- H&P, 08/08, Ramos jorgensen MD RISKS: - Atrial Fibrillation with rapid ventricular response- DS, 08/13, LAURIE LEAL MD - Chronic anticoagulation-DS, 08/13, LAURIE LEAL MD - Hypertension-DS, 08/13, LAURIE LEAL MD TREATMENTS: - Echocardiogram, 08/09 - Furosemide.PO-MAR-Home medication, 08/08 [employer] (This form is maintained as a part of the permanent medical record) 2014 [employer], [employer]. All Rights Reserved Sondra Whitney [not provided] [not provided] MICAH
--- NOTE | 2019-08-14 10:02 | EKG ---
Test Reason : ROUTINE Blood Pressure : / mmHG Vent. Rate : 116 BPM Atrial Rate : 116 BPM P-R Int : 000 ms QRS Dur : 084 ms QT Int : 358 ms P-R-T Axes : 000 013 001 degrees QTc Int : 497 ms Sinus tachycardia with short [place] Nonspecific ST and T wave abnormality Abnormal ECG Confirmed by KATERINA HERR MD ([id number]) on 08/14/2019 10:01:48 AM Referred By: Confirmed By:KATERINA HERR MD
--- NOTE | 2019-08-14 10:08 | EKG ---
Test Reason : 2 HRS POST TIKOYN Blood Pressure : / mmHG Vent. Rate : 077 BPM Atrial Rate : 077 BPM P-R Int : 150 ms QRS Dur : 098 ms QT Int : 410 ms P-R-T Axes : 082 046 050 degrees QTc Int : 463 ms Normal sinus rhythm Nonspecific ST abnormality Abnormal ECG Confirmed by CARMENZA CHERRY, KATERINA ([id number]) on 08/14/2019 10:07:30 AM Referred By: [facility] Confirmed By:KATERINA HERR MD
--- NOTE | 2019-08-14 10:11 | EKG ---
Test Reason : ROUTINE Blood Pressure : / mmHG Vent. Rate : 075 BPM Atrial Rate : 068 BPM P-R Int : 128 ms QRS Dur : 094 ms QT Int : 428 ms P-R-T Axes : 000 035 035 degrees QTc Int : 477 ms Sinus rhythm with occasional Premature ventricular complexes Otherwise normal ECG Confirmed by CARMENAZ CHERRY, KATERINA ([id number]) on 08/14/2019 10:10:40 AM Referred By: [facility] Confirmed By:KATERINA HERR MD
--- NOTE | 2019-08-18 10:10 | EKG ---
Test Reason : 2 HR POST TIKOSYN Blood Pressure : / mmHG Vent. Rate : 122 BPM Atrial Rate : 122 BPM P-R Int : 000 ms QRS Dur : 094 ms QT Int : 370 ms P-R-T Axes : 000 044 040 degrees QTc Int : 527 ms Sinus tachycardia Otherwise normal ECG Confirmed by CARMENZA CHERRY, KATERINA ([id number]) on 08/18/2019 10:09:53 AM Referred By: [facility] Confirmed By:KATERINA HERR MD
--- NOTE | 2019-08-18 10:16 | EKG ---
Test Reason : STAT Blood Pressure : / mmHG Vent. Rate : 063 BPM Atrial Rate : 063 BPM P-R Int : 130 ms QRS Dur : 100 ms QT Int : 474 ms P-R-T Axes : 079 024 006 degrees QTc Int : 485 ms Sinus rhythm with Premature supraventricular complexes Nonspecific ST and T wave abnormality Prolonged QT Abnormal ECG Confirmed by KATERINA HERR MD ([id number]) on 08/18/2019 10:16:15 AM Referred By: HÉCTOR CHICAS Confirmed By:KATERINA HERR MD
--- NOTE | 2019-08-18 10:17 | EKG ---
Test Reason : 2 HRS POST TIKOSYN Blood Pressure : / mmHG Vent. Rate : 069 BPM Atrial Rate : 069 BPM P-R Int : 136 ms QRS Dur : 106 ms QT Int : 442 ms P-R-T Axes : 085 040 056 degrees QTc Int : 473 ms Normal sinus rhythm with sinus arrhythmia Nonspecific ST and T wave abnormality Prolonged QT Abnormal ECG Confirmed by KATERINA HERR MD ([id number]) on 08/18/2019 10:16:52 AM Referred By: [facility]IVA Confirmed By:KATERINA HERR MD
== END 2019-08-13 12:25 | disposition home or self-care (01) | DRG 309 ==
LOC: ERS 22:05 → 2NO 08-08 02:31
PROVIDERS: ADMIT Internal Medicine; ATTEND Internal Medicine
DX: I48.0 Paroxysmal atrial fibrillation (principal); I50.32 Chronic diastolic (congestive) heart failure; J98.8 Other specified respiratory disorders; E78.5 Hyperlipidemia, unspecified; I95.9 Hypotension, unspecified; E03.9 Hypothyroidism, unspecified; E78.00 Pure hypercholesterolemia, unspecified; F32.9 Major depressive disorder, single episode, unspecified; E66.9 Obesity, unspecified; I25.10 Atherosclerotic heart disease of native coronary artery without angina pectoris; I12.9 Hypertensive chronic kidney disease with stage 1 through stage 4 chronic kidney disease, or unspecified chronic kidney disease; N18.2 Chronic kidney disease, stage 2 (mild); G47.33 Obstructive sleep apnea (adult) (pediatric); N40.0 Benign prostatic hyperplasia without lower urinary tract symptoms; Z79.01 Long term (current) use of anticoagulants; Z95.5 Presence of coronary angioplasty implant and graft; Z90.49 Acquired absence of other specified parts of digestive tract; Z68.34 Body mass index [BMI] 34.0-34.9, adult
CPT/HCPCS: 36415; 71045; 71046; 80048; 80053; 81001; 82565; 83735; 83880; 84484; 85014; 85018; 85025; 85049; 85610; 85730; 87040; 87086; 87633; 90471; 90662; 93005; 93010; 93306; 96365; G0008; J0696; J3490; J8499

== ENCOUNTER 2019-11-04 13:57 | Outpatient (CLI) | payer MEDICARE, OTHER ==
[~2019-11-04 13:57] MED LIST changes: -Glycopyrrolate 0.2 MG/ML 5 ML SYRINGE ONE; +Iopamidol-370 76% 500 ML 1 ML ONE; -PROPOFOL 20 ML ONE; -PROPOFOL 200 MG/20 ML VIAL ONE
--- NOTE | 2019-11-04 15:04 | CT ---
CT Abdomen Pelvis W WO con: 11/04/2019 12:00 AM CLINICAL HISTORY: Hematuria and BPH. TECHNIQUE: Multiple contiguous axial images were obtained and a CT of the abdomen and pelvis without and with IV contrast. Postcontrast images were obtained in the nephrographic and excretory phases. Sagittal and coronal reformats were performed. COMPARISON: None. FINDINGS: Kidneys and Urinary Tract: Right kidney and ureter: No calculi. No hydronephrosis or hydroureter. Hypodensities measuring up to 2.0 cm in size represent cysts. No solid renal masses. No urothelial lesions: no filling defect, dilation, stricture or wall thickening. Left kidney and ureter: No calculi. No hydronephrosis or hydroureter. Hypodensities measuring up to 1 .5 cm in size represent cysts. No solid renal masses. No urothelial lesions: no filling defect, dilation, stricture or wall thickening. Urinary bladder: The prostate is enlarged with a prominent median lobe of the prostate. Normal, no ca lculi, mass or other lesions. Remainder of Abdomen and Pelvis: Liver: Normal. Gallbladder and biliary system: Normal. No CT evident gallstones. No biliary ductal dilatation. Spleen: Normal. Pancreas: Normal. Adrenal glands: Normal. GI tract: Normal. Abdominal aorta and its major branches: Atherosclerotic calcifications. No aneurysm. Peritoneum/retroperitoneum: Normal. No ascites. No adenopathy. Pelvic structures: Normal. No pelvic lymphadenopathy. Body wall and musculoskeletal: Degenerative changes are seen in the spine. Small fat-containing ventr al hernia just above the umbilicus. Visualized lower thorax: Normal. No pulmonary parenchymal mass or pleural effusion. IMPRESSION: 1. Bilateral renal cysts 2. BPH
== END 2019-11-04 13:58 | disposition home or self-care (01) ==
LOC: BICCT 13:57
PROVIDERS: ATTEND Urology
DX: N40.1 Benign prostatic hyperplasia with lower urinary tract symptoms (principal); N18.3 Chronic kidney disease, stage 3 (moderate); R35.0 Frequency of micturition; N28.1 Cyst of kidney, acquired; Z87.448 Personal history of other diseases of urinary system
CPT/HCPCS: 74178; 82565; Q9967

== ENCOUNTER 2019-12-30 07:48 | Outpatient (CLI) | payer MEDICARE, OTHER ==
[2019-12-30 14:18] LABS: Hemoglobin 14.1 g/dL (14.0-18.0); Mean Corpuscular HGB CONC 34.5 g/dL (32.0-36.0); Mean Corpuscular Hemoglobin 32.4 pg (27.0-31.0); Mean Corpuscular Volume 93.9 fL (78.0-98.0); Mean Platelet Volume 8.4 fL (7.4-10.4); Platelet Count 188 thou/uL (130-400); RBC Distribution Width 12.2 % (11.5-14.5); Red Blood Cell (RBC) Count 4.34 mill/uL (4.70-6.10); White Blood Cell (WBC) Count 5.3 thou/uL (4.8-10.8)
[2019-12-30 14:23] LABS: INR-International Normal Ratio 1.6; PTT 38.2 SEC (22.9-36.1); Prothrombin Time 19.1 SEC (12.0-14.7)
[2019-12-30 14:35] LABS: Bacteria/HPF None Seen HPF (None Seen); Bilirubin Negative (Negative); Blood, Urine Negative (Negative); Clarity Clear (Clear); Glucose, Urine (Dipstick) Normal (Negative); Leukocyte Negative Leu/uL (Negative); Nitrite Negative (Negative); Protein, Urine (Dipstick) Negative (Neg-Trace); RBC/HPF 0-3 HPF (0-3); Squamous Epithelial None Seen HPF (0-3); Urobilinogen Normal mg/dL (Less than 2); WBC/HPF 0-3 HPF (0-3)
[2019-12-30 14:46] LABS: Anion Gap 12 mmol/L (10-20); BUN (Urea Nitrogen) 19 mg/dL (8.4-25.7); Calc. Creatinine Clearance 0 mL/min (70-130); Calcium 9.5 mg/dL (7.8-10.44); Carbon Dioxide 25 mmol/L (23-31); Chloride 106 mmol/L (98-107); Estimated GFR-MDRD 61; Glucose 83 mg/dL (80-115); Potassium 3.7 mmol/L (3.5-5.1); Sodium 139 mmol/L (136-145)
== END 2019-12-30 07:49 | disposition home or self-care (01) ==
LOC: LABBT 07:48
PROVIDERS: ATTEND Urology
DX: Z01.818 Encounter for other preprocedural examination (principal); Z12.5 Encounter for screening for malignant neoplasm of prostate; I48.0 Paroxysmal atrial fibrillation; N40.1 Benign prostatic hyperplasia with lower urinary tract symptoms; N13.8 Other obstructive and reflux uropathy; I12.9 Hypertensive chronic kidney disease with stage 1 through stage 4 chronic kidney disease, or unspecified chronic kidney disease; N18.3 Chronic kidney disease, stage 3 (moderate); R35.0 Frequency of micturition; R33.8 Other retention of urine; N28.1 Cyst of kidney, acquired; Z87.448 Personal history of other diseases of urinary system; Z87.898 Personal history of other specified conditions
CPT/HCPCS: 80048; 81001; 85027; 85610; 85730; 87086; 93005; 93010

== ENCOUNTER 2020-05-13 15:03 | Emergency (ER) | payer MEDICARE, OTHER ==
[2020-05-13 16:30] LABS: #Eosinphils 0.1 thou/uL (0.0-0.7); #Monocytes 0.5 thou/uL (0.11-0.59); #Neutrophils 4.2 thou/uL (1.40-6.50); %Basophils 0.6 % (0.0-1.0); %Eosinophils 1.6 % (0.0-10.0); %Lymphocytes 17.5 % (21.0-51.0); %Monocytes 8.9 % (0.0-10.0); %Neutrophils 71.4 % (42.0-75.0); Hemoglobin 15.1 g/dL (14.0-18.0); Mean Corpuscular HGB CONC 33.3 g/dL (32.0-36.0); Mean Corpuscular Hemoglobin 31.6 pg (27.0-31.0); Mean Corpuscular Volume 94.7 fL (78.0-98.0); Platelet Count 203 thou/uL (130-400); RBC Distribution Width 12.2 % (11.5-14.5); Red Blood Cell (RBC) Count 4.78 mill/uL (4.70-6.10); White Blood Cell (WBC) Count 5.8 thou/uL (4.8-10.8)
[2020-05-13 16:54] LABS: ALT (SGPT) 13 U/L (8-55); AST (SGOT) 18 U/L (5-34); Albumin 4.1 g/dL (3.4-4.8); Alkaline Phosphatase 168 U/L (40-110); Anion Gap 14 mmol/L (10-20); BUN (Urea Nitrogen) 15 mg/dL (8.4-25.7); Bilirubin, Total 0.8 mg/dL (0.2-1.2); Calc. Creatinine Clearance 0 mL/min (70-130); Calcium 9.3 mg/dL (7.8-10.44); Carbon Dioxide 22 mmol/L (23-31); Chloride 105 mmol/L (98-107); Estimated GFR-MDRD 61; Globulin 3.4 g/dL (2.4-3.5); Glucose 136 mg/dL (80-115); Lipase 28 U/L (8-78); Potassium 3.9 mmol/L (3.5-5.1); Protein, Total 7.5 g/dL (5.8-8.1); Sodium 137 mmol/L (136-145)
--- NOTE | 2020-05-13 17:43 | CT ---
CT ABDOMEN AND PELVIS WITH IV CONTRAST: 05/13/20 INDICATIONS: Abdominal pain. Hernia. Comparison made to CT abdomen and pelvis dated 11/04/19. FINDINGS: Mild interstitial prominence in the posterior lung bases with stranding. No infiltrate or effusion. Tiny hepatic cyst in the superior liver are stable. The liver, spleen and pancreas appear unremarkabl e. Stomach and duodenum unremarkable. A small nodule on the right adrenal gland measuring 1.0 cm in axial plane is again seen. This is stab le appearing nodule from 11/04/19. Kidneys show numerous cystic lesions which were present previously and appears stable. The largest of these measures approximately 2.0 cm from the superior right kidney. There are exophytic cysts seen o n the left which appear stable. No hydronephrosis. Aorta normal caliber with atherosclerotic changes present. Small bowel loops are normal. Evidence of appendectomy. Colon unremarkable. Images through the pelvis show prostatic hypertrophy impinging on the floor of the bladder. Density o n the floor of the bladder is suspicious for bladder neoplasm, although this could represent prostati c extension. It is similar in appearance to the prior exam. Recommend urologic consultation and cysto scopy to exclude bladder wall neoplasm involving the floor of the bladder. This abnormal density with in the floor of the bladder measures up to 2.5 cm in the axial plane. Osseous structures are unremarkable. There are two anterior abdominal wall hernias adjacent to one another at the level of the umbilicus. The more superior hernia has an anterior abdominal wall defect measuring 2.5 cm width and a small her dilan sac in the subcutaneous tissues containing fat. The umbilical hernia just inferior has a hernia s ac measuring 3.5 cm width. This hernia is also filled with omental fat. IMPRESSION: 1. There is prostatic hypertrophy which has been previously described. There is abnormal soft ti ssue density arising from the floor of the bladder. This may represent prostatic neoplasm invading th e floor of the bladder; however, mucosal neoplasm from the bladder should be excluded. Recommend urol ogic consultation and cystoscopy if this has not been previously evaluated. 2. There are two anterior abdominal wall hernias adjacent to one another as described above. 3. Small hepatic cyst and renal cysts are again seen and appear stable. POS: AGW
== END 2020-05-13 18:11 | disposition home or self-care (01) ==
LOC: ERS 15:03
DX: K42.9 Umbilical hernia without obstruction or gangrene (principal); I48.91 Unspecified atrial fibrillation; E03.9 Hypothyroidism, unspecified; E78.5 Hyperlipidemia, unspecified; E78.00 Pure hypercholesterolemia, unspecified; I10 Essential (primary) hypertension; F32.9 Major depressive disorder, single episode, unspecified; Z79.01 Long term (current) use of anticoagulants; Z79.899 Other long term (current) drug therapy; Z85.828 Personal history of other malignant neoplasm of skin
CPT/HCPCS: 74177; 80053; 83690; 85025; 87086; Q9967

== ENCOUNTER 2020-07-01 05:49 | Outpatient (CLI) | payer MEDICARE, OTHER ==
--- NOTE | 2020-07-03 16:09 | EKG ---
Test Reason : Blood Pressure : / mmHG Vent. Rate : 057 BPM Atrial Rate : 057 BPM P-R Int : 154 ms QRS Dur : 104 ms QT Int : 412 ms P-R-T Axes : 071 044 036 degrees QTc Int : 401 ms Sinus bradycardia Nonspecific ST abnormality Abnormal ECG Confirmed by Gini FIGUEREDO ([id number]) on 07/03/2020 4:08:49 PM Referred By: KAROLINA Confirmed By:Gini FIGUEREDO
== END 2020-07-01 05:50 | disposition home or self-care (01) ==
LOC: LABBT 05:49
PROVIDERS: ATTEND Urology
DX: Z01.810 Encounter for preprocedural cardiovascular examination (principal); Z12.5 Encounter for screening for malignant neoplasm of prostate; N40.1 Benign prostatic hyperplasia with lower urinary tract symptoms; I48.0 Paroxysmal atrial fibrillation; I12.9 Hypertensive chronic kidney disease with stage 1 through stage 4 chronic kidney disease, or unspecified chronic kidney disease; N18.3 Chronic kidney disease, stage 3 (moderate); R35.0 Frequency of micturition; R33.8 Other retention of urine; N13.8 Other obstructive and reflux uropathy; N28.1 Cyst of kidney, acquired; Z87.448 Personal history of other diseases of urinary system; Z87.898 Personal history of other specified conditions
CPT/HCPCS: 93005; 93010

== ENCOUNTER 2020-07-06 06:56 | Observation (INO) | payer MEDICARE, OTHER ==
[2020-07-01 14:01] LABS: PTT 40.5 sec (22.9-36.1); Prothrombin Time 22.2 sec (12.0-14.7)
[2020-07-01 14:24] LABS: Mean Corpuscular HGB CONC 32.3 g/dL (32.0-36.0); Mean Corpuscular Hemoglobin 31.1 pg (27.0-31.0); Mean Corpuscular Volume 96.4 fL (78.0-98.0); Mean Platelet Volume 8.2 fL (7.4-10.4); Platelet Count 177 thou/uL (130-400); RBC Distribution Width 12.1 % (11.5-14.5); Red Blood Cell (RBC) Count 4.84 mill/uL (4.70-6.10); White Blood Cell (WBC) Count 4.2 thou/uL (4.8-10.8)
[2020-07-01 14:45] LABS: Bacteria/HPF None Seen HPF (None Seen); Bilirubin Negative (Negative); Blood, Urine Negative (Negative); Calcium Oxalate Crystals 3+ HPF (None Seen); Clarity Clear (Clear); Glucose, Urine (Dipstick) Normal (Negative); Ketone, Urine Negative (Negative); Leukocyte 25 Leu/uL (Negative); Nitrite Negative (Negative); Protein, Urine (Dipstick) 10 mg/dL (Neg-Trace); RBC/HPF 0-3 HPF (0-3); Specific Gravity, Urine 1.024 (1.002-1.036); Squamous Epithelial None Seen HPF (0-3); Urobilinogen Normal mg/dL (Less than 2); pH, Urine 6.5 (5.0-9.0)
[2020-07-01 14:52] LABS: Anion Gap 14 mmol/L (10-20); BUN (Urea Nitrogen) 17 mg/dL (8.4-25.7); Calc. Creatinine Clearance 0 mL/min (70-130); Calcium 9.2 mg/dL (7.8-10.44); Carbon Dioxide 25 mmol/L (23-31); Chloride 106 mmol/L (98-107); Estimated GFR-MDRD 57; Glucose 94 mg/dL (80-115); Sodium 141 mmol/L (136-145)
[2020-07-01 16:20] VITALS: BMI 34.4
[2020-07-01 20:13] LABS: SARS-CoV-2 MS2 Positive; SARS-CoV-2 N Gene Negative; SARS-CoV-2 S Gene Negative; SARS-CoV-2 by NAA Not Detected (NotDetected); SARS-CoV-2 orf1ab Negative
[2020-07-06 08:56] LABS: INR-International Normal Ratio 1.1; PTT 28.4 sec (22.9-36.1)
[2020-07-06] MEDS ORDERED: B & O ONE (10:38)
[2020-07-06] MEDS ORDERED: Ondansetron HCl/PF 4 MG/2 ML Vial IVP PRN (11:02)
[2020-07-06] MEDS ORDERED: Promethazine HCl 25 MG/ML VIAL IM PRN (11:02)
[2020-07-06] MEDS ORDERED: Promethazine HCl 25 MG/ML VIAL SLOW IVP PRN (11:02)
[2020-07-06] MEDS ORDERED: HYDROmorphone 2 MG/ML VIAL SLOW IVP PRN (11:02)
[2020-07-06] MEDS ORDERED: Morphine Sulfate 2 MG/ML SYRINGE SLOW IVP PRN (11:02)
[2020-07-06] MEDS ORDERED: Meperidine HCl/PF 25 MG/ML VIAL SLOW IVP PRN (11:02)
[2020-07-06] MEDS ORDERED: Morphine 2 MG/ML VIAL SLOW IVP PRN (11:03)
[2020-07-06] MEDS ORDERED: hydrALAZINE 20 MG/ML VIAL SLOW IVP PRN ×2 (11:03)
[2020-07-06] MEDS ORDERED: Phenazopyridine HCl 97.5 MG TABLET PO PRN (11:03)
[2020-07-06] MEDS ORDERED: Ondansetron PF 4 MG/2 ML Vial IVP PRN (11:03)
[2020-07-06] MEDS ORDERED: Acetaminophen 500 MG TAB PO PRN (11:03)
[2020-07-06] MEDS ORDERED: HYDROcodone/Acetaminophen 5/325 mg Tablet PO PRN ×2 (11:03)
[2020-07-06] MEDS ORDERED: diphenhydrAMINE 50 MG/ML VIAL IVP PRN (11:03)
[2020-07-06] MEDS ORDERED: Mag-Al 1200 mg/1200 mg/30 ML UDCUP PO PRN (11:03)
[2020-07-06] MEDS ORDERED: Morphine 4 MG/ML VIAL SLOW IVP PRN (11:03)
[2020-07-06] MEDS ORDERED: Furosemide 40 MG TAB PO PRN (11:05)
[2020-07-06] MEDS ORDERED: Potassium Chloride 10 MEQ TAB PO PRN (11:05)
[2020-07-06] MEDS ORDERED: EPHEDRINE 25 MG/5 ML SYRINGE ONE (11:18)
[2020-07-06] MEDS ORDERED: Lidocaine 1% PF 5 ML VIAL ONE (11:18)
[2020-07-06] MEDS ORDERED: PROPOFOL 200 MG/20 ML VIAL ONE (11:18)
[2020-07-06] MEDS ORDERED: Ondansetron PF 4 MG/2 ML Vial ONE (11:18)
[2020-07-06] MEDS ORDERED: Rocuronium Bromide 10 MG/ML (10ML VIAL) ONE (11:18)
[2020-07-06] MEDS ORDERED: PHENYLEPHRINE-NS 100 MCG/ML 10 ML SYRINGE ONE (11:18)
[2020-07-06 11:46] LABS: #Lymphocytes 0.6 thou/uL (1.20-3.40); #Monocytes 0.1 thou/uL (0.11-0.59); #Neutrophils 4.7 thou/uL (1.40-6.50); %Basophils 0.4 % (0.0-1.0); %Eosinophils 0.2 % (0.0-10.0); %Monocytes 1.9 % (0.0-10.0); %Neutrophils 86.5 % (42.0-75.0); Mean Corpuscular HGB CONC 33.8 g/dL (32.0-36.0); Mean Corpuscular Hemoglobin 32.1 pg (27.0-31.0); Mean Platelet Volume 7.9 fL (7.4-10.4); Platelet Count 155 thou/uL (130-400); RBC Distribution Width 12.2 % (11.5-14.5); Red Blood Cell (RBC) Count 4.36 mill/uL (4.70-6.10); White Blood Cell (WBC) Count 5.5 thou/uL (4.8-10.8)
[2020-07-06 12:05] LABS: Anion Gap 11 mmol/L (10-20); BUN (Urea Nitrogen) 14 mg/dL (8.4-25.7); Calc. Creatinine Clearance 102 mL/min (70-130); Carbon Dioxide 22 mmol/L (23-31); Chloride 108 mmol/L (98-107); Estimated GFR-MDRD 74; Glucose 127 mg/dL (80-115); Potassium 3.8 mmol/L (3.5-5.1); Sodium 137 mmol/L (136-145)
--- NOTE | 2020-07-06 14:45 | OP ---
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 PROCEDURES PERFORMED: Cystoscopy and transurethral resection of prostate/vaporization of the prostate ANESTHESIA: General. COMPLICATIONS: None apparent. ESTIMATED BLOOD LOSS: Less than 200 mL. IV FLUIDS: About 1500 mL of crystalloids. COMPLICATIONS: None apparent. SPECIMEN: TUR of the prostate. DRAINS: 22-Chinese Coude 3-way Schneider catheter, 30 mL of sterile water on CBI. INDICATIONS FOR PROCEDURE AND HISTORY: Mr. You is a pleasant 70-year-old male, who presented with severe BPH symptoms, workup demonstrated severe trilobar hyperplasia of the prostate with large intravesical median lobe. The UOs were difficult to identify on local cystoscopy, he has been cleared by Cardiology to proceed with transurethral resection of prostate, with his anticoagulation on hold due to his history of atrial fibrillation. The patient has been fully informed regarding options of observation with dual medical therapy, versus TURP, possibility of staged intervention, suprapubic prostatectomy, both open and robotic. All questions were answered to his satisfaction, he desired to proceed with transurethral resection of prostate. His Xarelto has been held, recheck coagulation profile is within normal limits. Risks and complications of procedure including, but not limited to: Bleeding, pain, infection, injury to adjacent organs, urosepsis, bladder, urethral injury, clot retention, bladder neck contracture, urge and stress incontinence, PE, DVT, PR, perioperative morbidity, mortality were reviewed with him in detail and he desired to proceed without reservation. Expectations of urgency or urge incontinence post procedure was discussed as he has a large intravesical median lobe that needs to be resected. DESCRIPTION OF PROCEDURE: After an informed consent was signed, the patient was taken to the operating room, placed in a dorsal lithotomy position with the genital area prepped and draped in the usual surgical sterile fashion. A 21-Chinese cystoscope was utilized for cystoscopy. The prostatic urethra was entered, which demonstrated severe trilobar hyperplasia of the prostate with intravesical median lobe. Diffuse trabeculation was noted. With manipulation of the cystoscope, I was able to identify the bilateral ureteral orifices, however, this required manipulation of the median lobe with the cystoscope to visualize. Both UOs were not on the reflection of the intravesical median lobe mucosa. At this time, we transitioned to a 26-Chinese resectoscope with a visual obturator. There was some resistance at the meatus. Therefore, we dilated his meatus from 22 to 28 without difficulty and subsequently the scope passed. We performed a transurethral resection of prostate in a classic Caro fashion taking down the median lobe first. The UOs were kept out of harm's way at all times. The median lobe was taken down flush to the level of the bladder neck. Care was taken not to undermine the bladder neck. With the intravesical median lobe resolved with resection, we then began to resect the lateral lobes. Most of his obstruction was coming from the bladder neck intravesical median lobe component, at the end of the procedure, he had a wide bladder neck. He does have a prostatic urethra that is quite vascular and oozy and this required steadfast coagulation throughout the procedure as he was recently on Eliquis. At the end of the procedure, we did transition to ablating it with vaporization. Vaporization loop was utilized to ablate and coagulate. At the end of the procedure, we used vaporization probe to obtain hemostasis of the prostatic urethra. All chips were evacuated with the GlucoTec evacuator. I did have difficulty passing a routine 22 three-way, however, a Coude passed without significant issues. 30 mL was insufflated, attached to CBI at a moderate low rate demonstrating clear yellow output. The patient was transported to the recovery room in stable condition. We will observe him overnight on CBI. Job ID: [id number] [facility]
[2020-07-06] MEDS: Sodium Chloride 0.9% 1,000 ML IV SCH ×2 (17:10→20:15)
[2020-07-06] MEDS: cefTRIAXone\\ROCEPHIN 1 GM in Sodium Chloride 0.9% 100 ML IVPB SCH (18:36)
[2020-07-06] MEDS: Docusate 100 MG CAP PO SCH (20:13)
[2020-07-06] MEDS: Famotidine/PF 20 mg/2ml Vial SLOW IVP SCH (20:15)
[2020-07-06] MEDS ORDERED: Dutasteride 0.5 MG CAP PO SCH (21:00)
[2020-07-06] MEDS ORDERED: Amlodipine 10 MG TAB PO SCH (21:00)
[2020-07-06] MEDS ORDERED: Losartan 25 MG TAB PO SCH (21:00)
[2020-07-06] MEDS ORDERED: Atorvastatin Calcium 20 MG TAB PO SCH (21:00)
[2020-07-07 05:31] LABS: #Lymphocytes 0.7 thou/uL (1.20-3.40); #Monocytes 0.3 thou/uL (0.11-0.59); #Neutrophils 5.8 thou/uL (1.40-6.50); %Eosinophils 0.1 % (0.0-10.0); %Lymphocytes 10.2 % (21.0-51.0); %Monocytes 4.9 % (0.0-10.0); %Neutrophils 84.8 % (42.0-75.0); Hemoglobin 13.3 g/dL (14.0-18.0); Mean Corpuscular HGB CONC 33.4 g/dL (32.0-36.0); Mean Corpuscular Hemoglobin 31.7 pg (27.0-31.0); Mean Corpuscular Volume 95.1 fL (78.0-98.0); Mean Platelet Volume 7.9 fL (7.4-10.4); Platelet Count 170 thou/uL (130-400); RBC Distribution Width 12.1 % (11.5-14.5); Red Blood Cell (RBC) Count 4.19 mill/uL (4.70-6.10); White Blood Cell (WBC) Count 6.8 thou/uL (4.8-10.8)
[2020-07-07] MEDS ORDERED: Levothyroxine Sodium 25 MCG TAB PO SCH (06:00)
[2020-07-07 06:04] LABS: Anion Gap 13 mmol/L (10-20); BUN (Urea Nitrogen) 16 mg/dL (8.4-25.7); Calc. Creatinine Clearance 93 mL/min (70-130); Calcium 8.1 mg/dL (7.8-10.44); Carbon Dioxide 20 mmol/L (23-31); Chloride 108 mmol/L (98-107); Estimated GFR-MDRD 67; Glucose 149 mg/dL (80-115); Sodium 137 mmol/L (136-145)
[2020-07-07] MEDS: Sodium Chloride 0.9% 1,000 ML IV SCH (06:30)
--- NOTE | 2020-07-07 08:11 | PRG ---
DATE OF SERVICE: 07/07/2020 SUBJECTIVE: The patient without complaints. Did well overnight. Vital signs are stable. He is afebrile. CBI was held this morning with light pink shannan urine. OBJECTIVE: ABDOMEN: Soft, nontender, and nondistended. PERTINENT LABORATORY DATA: White count 6.8; hemoglobin 13, which is stable; platelet 155; creatinine 1.09. IMPRESSION: 1. Mr. You is a 70-year-old male with history of atrial fibrillation. 2. History of trilobar hyperplasia of the prostate with incomplete emptying, status post transurethral resection of the prostate postop day #1. His CBI has been held this morning, voiding trial in progress. Pending his assessment this afternoon, the patient will be discharged with or without indwelling Schneider catheter, pvr needs to be checked. Job ID: [id number] [facility]
[2020-07-07] MEDS: Docusate 100 MG CAP PO SCH (08:32)
[2020-07-07] MEDS: Famotidine/PF 20 mg/2ml Vial SLOW IVP SCH (08:32)
[2020-07-07] MEDS ORDERED: Tamsulosin HCl 0.4 MG CAP PO SCH ×2 (09:00)
[2020-07-07 11:06] VITALS: BP 125/75; TEMP 97.6
[2020-07-07] MEDS: cefTRIAXone\\ROCEPHIN 1 GM in Sodium Chloride 0.9% 100 ML IVPB SCH (11:31)
--- NOTE | 2020-07-08 03:51 | DIS ---
DATE OF ADMISSION: 07/06/2020 DATE OF DISCHARGE: 07/07/2020 DISPOSITION: To home to self-care. DISCHARGE MEDICATIONS: He may resume all his previous medications including BPH medications. He is to hold his anticoagulation until followup appointment to ensure no significant gross hematuria. BRIEF HOSPITAL COURSE: Mr. You is a pleasant 70-year-old male with history of trilobar hyperplasia of the prostate with incomplete emptying. He has obtained cardiac clearance and we had performed transurethral resection of prostate uneventfully. His labs are stable, he had minimal discomfort. His CBI was held this morning, with pink-tinged urine. The catheter removed and he had successful voiding trial, in which he urinated over 1 L. His PVR check was 100 mL; however, subsequently he voided further, therefore no significant PVR of concern. He is discharged with ciprofloxacin for course of 5 days and Azo p.r.n. appointment July 12 at 11:30 for peak flow PVR. If his urine output remains clear, we will resume his anticoagulation. Job ID: [id number] [facility]TD[facility]
== END 2020-07-07 14:20 | disposition home or self-care (01) ==
LOC: SDC 06:56 → INTOOBSV 11:06 → SURG A 11:06
PROVIDERS: ADMIT Urology; ATTEND Urology
PROC: 0VT08ZZ Resection of Prostate, Via Natural or Artificial Opening Endoscopic (ICD-10-PCS; principal; 2020-07-06)
DX: N40.1 Benign prostatic hyperplasia with lower urinary tract symptoms (principal); R39.14 Feeling of incomplete bladder emptying; Z79.899 Other long term (current) drug therapy
CPT/HCPCS: 52601; 80048 ×3; 81001; 85025 ×2; 85027; 85610 ×2; 85730 ×2; 86850; 86900; 86901; 87086; 88305; U0003; 36415; 87635; 96361; 96365; 96375; 96376; G0378; J0696; J2405; J2704; J3490; S0028

== ENCOUNTER 2020-07-25 07:32 | Outpatient (CLI) | payer MEDICARE, OTHER ==
[2020-07-25 11:32] LABS: #Eosinphils 0.1 thou/uL (0.0-0.7); #Lymphocytes 1.2 thou/uL (1.20-3.40); #Monocytes 0.4 thou/uL (0.11-0.59); %Basophils 0.2 % (0.0-1.0); %Eosinophils 1.6 % (0.0-10.0); %Neutrophils 63.2 % (42.0-75.0); Hemoglobin 14.6 g/dL (14.0-18.0); Mean Corpuscular HGB CONC 32.7 g/dL (32.0-36.0); Mean Corpuscular Hemoglobin 31.4 pg (27.0-31.0); Mean Corpuscular Volume 96.1 fL (78.0-98.0); Mean Platelet Volume 8.5 fL (7.4-10.4); Platelet Count 223 thou/uL (130-400); Red Blood Cell (RBC) Count 4.64 mill/uL (4.70-6.10); White Blood Cell (WBC) Count 4.7 thou/uL (4.8-10.8)
[2020-07-25 12:36] LABS: Anion Gap 15 mmol/L (10-20); BUN (Urea Nitrogen) 15 mg/dL (8.4-25.7); Calc. Creatinine Clearance 0 mL/min (70-130); Calcium 9.2 mg/dL (7.8-10.44); Carbon Dioxide 23 mmol/L (23-31); Chloride 107 mmol/L (98-107); Estimated GFR-MDRD 58; Glucose 133 mg/dL (80-115); Potassium 3.9 mmol/L (3.5-5.1); Sodium 141 mmol/L (136-145)
[2020-07-25 19:11] LABS: SARS-CoV-2 MS2 Positive; SARS-CoV-2 N Gene Negative; SARS-CoV-2 S Gene Negative; SARS-CoV-2 by NAA Not Detected (NotDetected); SARS-CoV-2 orf1ab Negative
== END 2020-07-25 07:33 | disposition home or self-care (01) ==
LOC: LABBT 07:32
PROVIDERS: ATTEND Surgery
DX: Z01.812 Encounter for preprocedural laboratory examination (principal); K43.9 Ventral hernia without obstruction or gangrene; Z20.828 Contact with and (suspected) exposure to other viral communicable diseases
CPT/HCPCS: 80048; 85025; U0003; 87635

== ENCOUNTER 2020-07-29 06:02 | Day surgery (SDC) | payer MEDICARE, OTHER ==
[2020-07-25 15:06] VITALS: BMI 34.4
[2020-07-29] MEDS ORDERED: Bupivacaine/Epinephrine 0.25% 30 ML VIAL ONE (06:36)
[2020-07-29] MEDS ORDERED: Lidocaine 4% Topical Sol 50 ML BOT ONE (06:46)
[2020-07-29] MEDS ORDERED: Fentanyl 250 MCG/5 ML VIAL ONE (06:46)
[2020-07-29] MEDS ORDERED: Albuterol Sulfate HFA (OR ONLY) ONE (06:46)
[2020-07-29] MEDS ORDERED: Fentanyl 100 MCG/2 ML VIAL ONE (09:05)
[2020-07-29] MEDS ORDERED: Morphine 2 MG/ML VIAL ONE (09:32)
[2020-07-29] MEDS ORDERED: HYDROcodone/Acetaminophen 5/325 mg Tablet ONE (10:26)
[2020-07-29] MEDS ORDERED: PHENYLEPHRINE-NS 100 MCG/ML 10 ML SYRINGE ONE (10:55)
[2020-07-29] MEDS ORDERED: PROPOFOL 200 MG/20 ML VIAL ONE (10:55)
[2020-07-29] MEDS ORDERED: Ondansetron PF 4 MG/2 ML Vial ONE (10:55)
[2020-07-29] MEDS ORDERED: Rocuronium Bromide 10 MG/ML (10ML VIAL) ONE (10:55)
[2020-07-29] MEDS ORDERED: EPHEDRINE 25 MG/5 ML SYRINGE ONE (10:55)
[2020-07-29] MEDS ORDERED: Glycopyrrolate 0.2 MG/ML 5 ML SYRINGE ONE (10:55)
[2020-07-29] MEDS ORDERED: Ketorolac Tromethamine 30 MG/ML VIAL ONE (10:55)
[2020-07-29] MEDS ORDERED: Dexamethasone 20 MG/5 ML VIAL ONE (10:55)
[2020-07-29] MEDS ORDERED: Lidocaine 1% PF 5 ML VIAL ONE (10:55)
--- NOTE | 2020-07-29 16:54 | OP ---
DATE OF PROCEDURE: 07/29/2020 PREOPERATIVE DIAGNOSIS: Ventral hernia. POSTOPERATIVE DIAGNOSIS: Ventral hernia. PROCEDURE PERFORMED: Laparoscopic da Ben robot ventral hernia repair with mesh, [address] ANESTHESIA: General. ESTIMATED BLOOD LOSS: Minimal. COMPLICATIONS: None. FINDINGS: Ventral and umbilical hernias. DESCRIPTION OF PROCEDURE: The patient was taken to the operating room and laid supine on the operating room table. After general anesthetic was obtained, a Schneider was placed. The abdomen was shaved, prepped, and draped in a sterile fashion. Left subcostal 5-mm Optiview trocar placed in the usual fashion and high-flow pneumoperitoneum was obtained. Left and right abdominal 8-mm robot trocars were placed. The 5-mm subcostal switched out to an 8-mm balloon port. All ports were docked to the robot. There were some adhesions in the umbilical and ventral hernia areas right at the level of the umbilicus. These were all taken down. The posterior fat was dissected off the posterior fascia, exposing the fascia for hernia repair. 0 V-Loc was used to suture up the umbilical and ventral defects. The 8-cm Ventralex ST mesh was brought into the sterile field, marked and placed into the abdominal cavity. The exposed mesh was placed up against the posterior fascia. The nonadherent barrier side was left against the abdominal contents. This mesh was sewn to the posterior fascia using a running 2-0 V-Loc around the edge. All needles were removed from the abdomen and accounted for. All port sites were infiltrated using local anesthetic. All ports were removed under camera visualization. Pneumoperitoneum was let down. PDS was used to close the fascial defect from the left subcostal incision. All incisions were irrigated and closed using 4-0 Monocryl and Dermabond. The patient was sent to Recovery in stable condition. All instrument counts, needle counts, and lap counts were correct. Job ID: [id number]
== END 2020-07-29 13:50 | disposition home or self-care (01) ==
LOC: SDC 06:02
PROVIDERS: ATTEND Surgery
PROC: 0WUF4JZ Supplement Abdominal Wall with Synthetic Substitute, Percutaneous Endoscopic Approach (ICD-10-PCS; principal; 2020-07-29)
PROC: 0WQF4ZZ Repair Abdominal Wall, Percutaneous Endoscopic Approach (ICD-10-PCS; 2020-07-29)
DX: K43.9 Ventral hernia without obstruction or gangrene (principal); K42.9 Umbilical hernia without obstruction or gangrene; Z79.01 Long term (current) use of anticoagulants; Z95.5 Presence of coronary angioplasty implant and graft
CPT/HCPCS: 49652; C1781; J2270; J0690; J1100; J1885; J2405; J2704; J3010

== ENCOUNTER 2021-02-15 09:54 | Outpatient (CLI) | payer MEDICARE, OTHER ==
[2021-02-15 10:37] LABS: Hemoglobin 14.9 g/dL (13.5-17.5); Mean Corpuscular HGB CONC 33.5 g/dL (32.0-36.0); Mean Corpuscular Hemoglobin 30.5 pg (27.0-33.0); Mean Platelet Volume 9.8 fl (7.4-10.4); Platelet Count 204 10x3/uL (150-450); RBC Distribution Width 12.7 % (11.5-14.5); Red Blood Cell (RBC) Count 4.89 10x6/uL (4.32-5.72); White Blood Cell (WBC) Count 5.3 10x3/uL (3.5-10.5)
[2021-02-15 10:55] LABS: PTT 24.3 sec (22.0-33.0); Prothrombin Time 11.3 sec (9.5-12.1)
[2021-02-15 11:17] LABS: Anion Gap 13 mmol/L (10-20); BUN (Urea Nitrogen) 16 mg/dL (8.4-25.7); Calc. Creatinine Clearance 0 mL/min (70-130); Calcium 9.3 mg/dL (7.8-10.44); Carbon Dioxide 25 mmol/L (23-31); Chloride 106 mmol/L (98-107); Glucose 112 mg/dL (80-115); Potassium 4.2 mmol/L (3.5-5.1); Sodium 140 mmol/L (136-145)
[2021-02-15 18:20] LABS: SARS-CoV-2 PCR by NAA Not Detected (NotDetected)
== END 2021-02-15 09:55 | disposition home or self-care (01) ==
LOC: LABBT 09:54
PROVIDERS: ATTEND Urology
DX: Z01.818 Encounter for other preprocedural examination (principal); Z20.822 Contact with and (suspected) exposure to COVID-19; N40.1 Benign prostatic hyperplasia with lower urinary tract symptoms; N13.8 Other obstructive and reflux uropathy; R35.0 Frequency of micturition; R33.8 Other retention of urine; R39.15 Urgency of urination; I48.0 Paroxysmal atrial fibrillation; I12.9 Hypertensive chronic kidney disease with stage 1 through stage 4 chronic kidney disease, or unspecified chronic kidney disease; N18.30 Chronic kidney disease, stage 3 unspecified; N28.1 Cyst of kidney, acquired; N39.41 Urge incontinence; Z87.448 Personal history of other diseases of urinary system; Z87.898 Personal history of other specified conditions
CPT/HCPCS: 80048; 85027; 85610; 85730; U0003; U0005; 87635

== ENCOUNTER 2021-02-20 05:56 | Observation (INO) | payer MEDICARE, OTHER ==
[2021-02-17 11:48] VITALS: BMI 34.2
[2021-02-20] MEDS ORDERED: Fentanyl 100 MCG/2 ML VIAL ONE ×2 (06:17)
[2021-02-20] MEDS ORDERED: SUGAMMADEX SODIUM 500 MG/5 ML VIAL ONE (06:17)
[2021-02-20] MEDS ORDERED: Famotidine/PF 20 mg/2ml Vial ONE (06:17)
[2021-02-20] MEDS ORDERED: Levofloxacin 500 mg/D5W 100 ml Premix Bag ONE (06:27)
[2021-02-20] MEDS ORDERED: Metoclopramide HCl 10 MG/2 ML VIAL ONE (07:24)
[2021-02-20] MEDS ORDERED: Ondansetron PF 4 MG/2 ML Vial ONE (07:24)
[2021-02-20] MEDS ORDERED: ePHEDrine Sulfate 50 MG/10 ML VIAL ONE (07:24)
[2021-02-20] MEDS ORDERED: Rocuronium Bromide 10 MG/ML (10ML VIAL) ONE (07:24)
[2021-02-20] MEDS ORDERED: PHENYLEPHRINE-NS 100 MCG/ML 10 ML SYRINGE ONE (07:24)
[2021-02-20] MEDS ORDERED: Lidocaine 1% PF 5 ML VIAL ONE (07:24)
[2021-02-20] MEDS ORDERED: PROPOFOL 200 MG/20 ML VIAL ONE (07:24)
[2021-02-20] MEDS ORDERED: HYDROcodone/Acetaminophen 5/325 mg Tablet PO PRN ×2 (08:45)
[2021-02-20] MEDS ORDERED: Furosemide 40 MG TAB PO PRN ×2 (08:45→09:03)
[2021-02-20] MEDS ORDERED: diphenhydrAMINE 50 MG/ML VIAL IVP PRN (08:45)
[2021-02-20] MEDS ORDERED: Morphine 4 MG/ML VIAL SLOW IVP PRN ×2 (08:45→09:07)
[2021-02-20] MEDS ORDERED: Morphine 2 MG/ML VIAL SLOW IVP PRN (08:45)
[2021-02-20] MEDS ORDERED: Oxybutynin 5 MG TAB PO PRN (08:45)
[2021-02-20] MEDS ORDERED: Ondansetron PF 4 MG/2 ML Vial IVP PRN (08:45)
[2021-02-20] MEDS ORDERED: hydrALAZINE 20 MG/ML VIAL SLOW IVP PRN ×2 (08:45)
[2021-02-20] MEDS ORDERED: Zolpidem Tartrate 5 MG TAB PO PRN (08:45)
[2021-02-20] MEDS ORDERED: Potassium Chloride 10 MEQ TAB PO PRN (08:45)
[2021-02-20] MEDS ORDERED: Acetaminophen 500 MG TAB PO PRN (08:45)
[2021-02-20] MEDS ORDERED: Mag-Al 1200 mg/1200 mg/30 ML UDCUP PO PRN (08:45)
[2021-02-20] MEDS ORDERED: Phenazopyridine HCl 100 MG TAB PO PRN (09:11)
[2021-02-20] MEDS: Tamsulosin HCl 0.4 MG CAP PO SCH (10:04)
[2021-02-20] MEDS: Docusate 100 MG CAP PO SCH ×2 (10:04→20:11)
[2021-02-20] MEDS: Famotidine/PF 20 mg/2ml Vial SLOW IVP SCH ×2 (10:04→20:16)
[2021-02-20 10:44] LABS: #Lymphocytes 1.1 thou/uL (1.20-3.40); #Monocytes 0.4 thou/uL (0.11-0.59); #Neutrophils 4.1 thou/uL (1.40-6.50); %Basophils 0.9 % (0.0-1.0); %Eosinophils 0.7 % (0.0-10.0); %Lymphocytes 19.9 % (21.0-51.0); %Monocytes 7.1 % (0.0-10.0); %Neutrophils 71.4 % (42.0-75.0); Hemoglobin 14.7 g/dL (14.0-18.0); Mean Corpuscular HGB CONC 32.6 g/dL (32.0-36.0); Mean Corpuscular Hemoglobin 30.6 pg (27.0-31.0); Mean Corpuscular Volume 93.9 fL (78.0-98.0); Mean Platelet Volume 7.8 fL (7.4-10.4); Platelet Count 192 thou/uL (130-400); RBC Distribution Width 12.2 % (11.5-14.5); Red Blood Cell (RBC) Count 4.81 mill/uL (4.70-6.10); White Blood Cell (WBC) Count 5.8 thou/uL (4.8-10.8)
[2021-02-20] MEDS: cefTRIAXone\\ROCEPHIN 1 GM in Sodium Chloride 0.9% 100 ML IVPB SCH (10:55)
[2021-02-20] MEDS: Sodium Chloride 0.9% 1,000 ML IV SCH ×2 (10:57→18:30)
[2021-02-20 11:05] LABS: Anion Gap 13 mmol/L (10-20); BUN (Urea Nitrogen) 15 mg/dL (8.4-25.7); Calc. Creatinine Clearance 94 mL/min (70-130); Calcium 8.8 mg/dL (7.8-10.44); Carbon Dioxide 23 mmol/L (23-31); Chloride 108 mmol/L (98-107); Glucose 101 mg/dL (80-115); Sodium 140 mmol/L (136-145)
[2021-02-20] MEDS ORDERED: Non-Formulary Item 1 EACH (Olmesartan Medoxomil [Benicar] 40 MG Tablet) PO SCH (21:00)
[2021-02-20] MEDS ORDERED: Dutasteride 0.5 MG CAP PO SCH (21:00)
[2021-02-20] MEDS ORDERED: Atorvastatin Calcium 20 MG TAB PO SCH (21:00)
[2021-02-20] MEDS ORDERED: Losartan 25 MG TAB PO SCH (21:00)
[2021-02-20] MEDS ORDERED: Amlodipine 10 MG TAB PO SCH ×2 (21:00)
[2021-02-21] MEDS: Sodium Chloride 0.9% 1,000 ML IV SCH (00:05)
[2021-02-21 05:22] LABS: #Eosinphils 0.1 thou/uL (0.0-0.7); #Lymphocytes 1.1 thou/uL (1.20-3.40); #Monocytes 0.6 thou/uL (0.11-0.59); #Neutrophils 5.3 thou/uL (1.40-6.50); %Basophils 0.7 % (0.0-1.0); %Eosinophils 1.4 % (0.0-10.0); %Lymphocytes 15.7 % (21.0-51.0); %Monocytes 8.4 % (0.0-10.0); %Neutrophils 73.7 % (42.0-75.0); Hemoglobin 13.2 g/dL (14.0-18.0); Mean Corpuscular HGB CONC 33.3 g/dL (32.0-36.0); Mean Corpuscular Hemoglobin 31.2 pg (27.0-31.0); Mean Corpuscular Volume 93.9 fL (78.0-98.0); Mean Platelet Volume 8.2 fL (7.4-10.4); Platelet Count 164 thou/uL (130-400); RBC Distribution Width 12.2 % (11.5-14.5); Red Blood Cell (RBC) Count 4.22 mill/uL (4.70-6.10); White Blood Cell (WBC) Count 7.2 thou/uL (4.8-10.8)
[2021-02-21 05:43] LABS: Anion Gap 12 mmol/L (10-20); BUN (Urea Nitrogen) 12 mg/dL (8.4-25.7); Calc. Creatinine Clearance 107 mL/min (70-130); Calcium 8.1 mg/dL (7.8-10.44); Carbon Dioxide 22 mmol/L (23-31); Chloride 108 mmol/L (98-107); Glucose 102 mg/dL (80-115); Potassium 3.6 mmol/L (3.5-5.1); Sodium 138 mmol/L (136-145)
[2021-02-21] MEDS ORDERED: Levothyroxine Sodium 50 MCG TAB PO SCH (06:00)
[2021-02-21] MEDS ORDERED: Levothyroxine Sodium 25 MCG TAB PO SCH (06:00)
[2021-02-21] MEDS: Famotidine/PF 20 mg/2ml Vial SLOW IVP SCH (09:05)
[2021-02-21] MEDS: Tamsulosin HCl 0.4 MG CAP PO SCH (09:05)
[2021-02-21] MEDS: Docusate 100 MG CAP PO SCH (09:06)
[2021-02-21] MEDS: cefTRIAXone\\ROCEPHIN 1 GM in Sodium Chloride 0.9% 100 ML IVPB SCH (09:08)
[2021-02-21 12:07] VITALS: BP 130/78; TEMP 98
== END 2021-02-21 14:00 | disposition home or self-care (01) ==
LOC: SDC 05:56 → SJJU 08:45
PROVIDERS: ADMIT Urology; ATTEND Urology
PROC: 0VT08ZZ Resection of Prostate, Via Natural or Artificial Opening Endoscopic (ICD-10-PCS; principal; 2021-02-20)
DX: N40.1 Benign prostatic hyperplasia with lower urinary tract symptoms (principal); R39.14 Feeling of incomplete bladder emptying; R35.1 Nocturia; R35.0 Frequency of micturition; R39.11 Hesitancy of micturition; R39.12 Poor urinary stream; N39.41 Urge incontinence; E03.9 Hypothyroidism, unspecified; I25.10 Atherosclerotic heart disease of native coronary artery without angina pectoris; G47.30 Sleep apnea, unspecified; I12.9 Hypertensive chronic kidney disease with stage 1 through stage 4 chronic kidney disease, or unspecified chronic kidney disease; N18.30 Chronic kidney disease, stage 3 unspecified; I48.0 Paroxysmal atrial fibrillation; Z87.891 Personal history of nicotine dependence; Z79.899 Other long term (current) drug therapy; Z95.5 Presence of coronary angioplasty implant and graft
CPT/HCPCS: 52630; 80048 ×2; 85025 ×2; 88305; 96365; 96375; 96376; G0378 ×2; 36415; J0696; J1956; J2405; J2704; J2765; J3010; J3490; S0028

== ENCOUNTER 2021-09-06 07:45 | Outpatient (CLI) | payer MEDICARE, OTHER | END 2021-09-06 07:46 | disposition home or self-care (01) | LOC: BICCT 07:45 | PROVIDERS: ATTEND Internal Medicine Cardiovascular Disease | DX: Z45.09 Encounter for adjustment and management of other cardiac device (principal); Q20.8 Other congenital malformations of cardiac chambers and connections; I48.91 Unspecified atrial fibrillation; R06.02 Shortness of breath | CPT/HCPCS: 71275 ==

== ENCOUNTER 2022-12-14 03:01 | Inpatient (IN) | payer MEDICARE, OTHER ==
[2022-12-14 03:45] LABS: #Eosinphils 0.3 thou/uL (0.0-0.7); #Lymphocytes 1.5 thou/uL (1.20-3.40); #Monocytes 0.7 thou/uL (0.11-0.59); #Neutrophils 7.4 thou/uL (1.40-6.50); %Basophils 0.3 % (0.0-1.0); %Eosinophils 3.1 % (0.0-10.0); %Lymphocytes 15.1 % (21.0-51.0); %Monocytes 7.1 % (0.0-10.0); %Neutrophils 74.3 % (42.0-75.0); Mean Corpuscular HGB CONC 31.2 g/dL (32.0-36.0); Mean Platelet Volume 7.8 fL (7.4-10.4); Platelet Count 215 10x3/uL (130-400); RBC Distribution Width 12.2 % (11.5-14.5)
[2022-12-14 04:02] LABS: PTT 30.8 sec (22.9-36.1)
[2022-12-14 04:04] LABS: ALT (SGPT) 13 U/L (8-55); AST (SGOT) 15 U/L (5-34); Alkaline Phosphatase 156 U/L (40-110); Anion Gap 13 mmol/L (10-20); BUN (Urea Nitrogen) 18 mg/dL (8.4-25.7); Calc. Creatinine Clearance 0 mL/min (70-130); Calcium 9.6 mg/dL (7.8-10.44); Carbon Dioxide 27 mmol/L (23-31); Chloride 105 mmol/L (98-107); Estimated GFR 69; Globulin 3.6 g/dL (2.4-3.5); Glucose 114 mg/dL (83-110); Potassium 3.3 mmol/L (3.5-5.1); Protein, Total 7.6 g/dL (5.8-8.1); Sodium 142 mmol/L (136-145)
[2022-12-14] MEDS ORDERED: Furosemide 40 MG/4 ML VIAL ONE (04:34)
[2022-12-14 06:55] VITALS: BMI 31.9
[2022-12-14 07:35] LABS: Troponin I Less than 0.010 ng/mL (< 0.028)
[2022-12-14 09:37] LABS: Troponin I Less than 0.010 ng/mL (< 0.028)
[2022-12-14] MEDS ORDERED: Senokot S 8.6-50 MG TAB PO PRN (10:12)
[2022-12-14] MEDS ORDERED: Bisacodyl 5 MG TAB PO PRN (10:12)
[2022-12-14] MEDS ORDERED: Bisacodyl 10 MG SUPP PR PRN (10:12)
[2022-12-14] MEDS ORDERED: Nitroglycerin 0.4 MG TAB (25 Tab Bottle) SL PRN (10:15)
[2022-12-14] MEDS: Furosemide 40 MG/4 ML VIAL SLOW IVP SCH (14:09)
[2022-12-14 14:33] LABS: Bacteria/HPF None Seen HPF (None Seen); Bilirubin Negative (Negative); Blood, Urine Negative (Negative); Clarity Clear (Clear); Glucose, Urine (Dipstick) Normal (Negative); Ketone, Urine Negative (Negative); Leukocyte Negative Leu/uL (Negative); Nitrite Negative (Negative); Protein, Urine (Dipstick) Negative (Neg-Trace); RBC/HPF 0-3 HPF (0-3); Specific Gravity, Urine 1.014 (1.002-1.036); Squamous Epithelial None Seen HPF (0-3); Urobilinogen Normal mg/dL (Less than 2); WBC/HPF 0-3 HPF (0-3); pH, Urine 6.5 (5.0-9.0)
[2022-12-14] MEDS: Famotidine 20 MG TAB PO SCH (20:16)
[2022-12-14] MEDS ORDERED: Amlodipine 5 MG TAB PO SCH (21:00)
[2022-12-14] MEDS ORDERED: Losartan 25 MG TAB PO SCH (21:00)
[2022-12-14] MEDS ORDERED: Aspirin 325 MG TAB PO SCH (21:00)
[2022-12-14] MEDS ORDERED: Atorvastatin Calcium 20 MG TAB PO SCH (21:00)
[2022-12-15 04:26] LABS: #Basophils 0.1 thou/uL (0.0-0.2); #Eosinphils 0.2 thou/uL (0.0-0.7); #Lymphocytes 1.3 thou/uL (1.20-3.40); #Monocytes 0.7 thou/uL (0.11-0.59); #Neutrophils 3.5 thou/uL (1.40-6.50); %Basophils 0.9 % (0.0-1.0); %Eosinophils 3.7 % (0.0-10.0); %Monocytes 12.6 % (0.0-10.0); %Neutrophils 60.8 % (42.0-75.0); Hemoglobin 14.9 g/dL (14.0-18.0); Mean Corpuscular HGB CONC 33.4 g/dL (32.0-36.0); Mean Corpuscular Hemoglobin 32.3 pg (27.0-31.0); Mean Corpuscular Volume 96.7 fl (78.0-98.0); Mean Platelet Volume 7.8 fL (7.4-10.4); Platelet Count 209 10x3/uL (130-400); RBC Distribution Width 12.1 % (11.5-14.5); Red Blood Cell (RBC) Count 4.61 mill/uL (4.70-6.10); White Blood Cell (WBC) Count 5.8 10x3/uL (4.8-10.8)
[2022-12-15 04:50] LABS: Anion Gap 13 mmol/L (10-20); BUN (Urea Nitrogen) 19 mg/dL (8.4-25.7); Calc. Creatinine Clearance 93 mL/min (70-130); Calcium 9.1 mg/dL (7.8-10.44); Carbon Dioxide 23 mmol/L (23-31); Chloride 104 mmol/L (98-107); Estimated GFR 80; Glucose 100 mg/dL (83-110); Potassium 2.9 mmol/L (3.5-5.1); Sodium 137 mmol/L (136-145)
[2022-12-15] MEDS ORDERED: Electrolyte Replacement Protocol FS SCH (05:15)
[2022-12-15] MEDS: Potassium Chloride 20 MEQ TAB PO SCH ×2 (05:42→10:32)
[2022-12-15] MEDS ORDERED: Levothyroxine Sodium 25 MCG TAB PO SCH (06:00)
[2022-12-15] MEDS: Furosemide 40 MG/4 ML VIAL SLOW IVP SCH ×2 (07:27→14:47)
[2022-12-15] MEDS ORDERED: Aspirin 325 MG TAB PO SCH (09:00)
[2022-12-15] MEDS: Famotidine 20 MG TAB PO SCH (10:32)
[2022-12-15 12:32] VITALS: TEMP 97.3
[2022-12-15 13:29] LABS: Potassium 3.5 mmol/L (3.5-5.1)
[2022-12-15 15:51] VITALS: BP 148/65
== END 2022-12-15 17:00 | disposition home or self-care (01) | DRG 291 ==
LOC: ERS 03:01 → 2NO 06:14
PROVIDERS: ADMIT Student in an Organized Health Care Education/Training Program; ATTEND Family Medicine
DX: I11.0 Hypertensive heart disease with heart failure (principal); I50.33 Acute on chronic diastolic (congestive) heart failure; J96.01 Acute respiratory failure with hypoxia; E03.9 Hypothyroidism, unspecified; E78.00 Pure hypercholesterolemia, unspecified; E11.9 Type 2 diabetes mellitus without complications; F32.A Depression, unspecified; I25.10 Atherosclerotic heart disease of native coronary artery without angina pectoris; G47.33 Obstructive sleep apnea (adult) (pediatric); N40.1 Benign prostatic hyperplasia with lower urinary tract symptoms; R35.0 Frequency of micturition; I48.0 Paroxysmal atrial fibrillation; Z20.822 Contact with and (suspected) exposure to COVID-19; Z90.49 Acquired absence of other specified parts of digestive tract; Z98.890 Other specified postprocedural states; Z95.5 Presence of coronary angioplasty implant and graft; Z79.82 Long term (current) use of aspirin; Z79.890 Hormone replacement therapy
CPT/HCPCS: 36415; 71045; 80048; 80053; 81001; 83880; 84484; 85025; 85610; 85730; 93005; 93010; 93306; 93798; 94760; 96374; 97139; J1650; J1940; U0003; U0005

== ENCOUNTER 2024-06-09 11:45 | Outpatient (CLI) | payer MEDICARE, OTHER | END 2024-06-09 11:46 | disposition home or self-care (01) | LOC: PET 11:45 | PROVIDERS: ATTEND Urology | DX: C61 Malignant neoplasm of prostate (principal) | CPT/HCPCS: 78815; A9552; A9595 ==

== ENCOUNTER 2024-06-11 10:21 | Outpatient (CLI) | payer MEDICARE, OTHER ==
[~2024-06-11 10:21] MED LIST changes: +Iopamidol 370 76% 100 ML VIAL ONE; -Iopamidol-370 76% 500 ML 1 ML ONE
== END 2024-06-11 10:22 | disposition home or self-care (01) ==
LOC: BICCT 10:21
PROVIDERS: ATTEND Urology
DX: C61 Malignant neoplasm of prostate (principal); K76.89 Other specified diseases of liver; N28.89 Other specified disorders of kidney and ureter; E27.8 Other specified disorders of adrenal gland
CPT/HCPCS: 74178; 82565; Q9967

== ENCOUNTER 2024-10-06 14:30 | Outpatient (CLI) | payer MEDICARE, OTHER | END 2024-10-06 14:31 | disposition home or self-care (01) | LOC: LABBT 14:30 → SCSRAD 14:31 | DX: R06.09 Other forms of dyspnea (principal); J98.4 Other disorders of lung; R91.8 Other nonspecific abnormal finding of lung field | CPT/HCPCS: 36415; 71046; 80053; 83880; 85025 ==

== ENCOUNTER 2024-10-13 09:44 | Outpatient (CLI) | payer MEDICARE, OTHER | END 2024-10-13 09:45 | disposition home or self-care (01) | LOC: SCSRAD 09:44 | PROVIDERS: ATTEND Family Medicine | DX: I50.33 Acute on chronic diastolic (congestive) heart failure (principal); J98.4 Other disorders of lung | CPT/HCPCS: 36415; 71045; 71046; 80053; 80061; 81001; 82306; 84443; 84550; 85025 ==